=== PATIENT | male | born 1950 | race Caucasian/White ===

== ENCOUNTER → 2022-10-09 09:59 | Outpatient (BNVA) | payer OTHER, SELFPAY | PROVIDERS: PCP Physician Assistant; Visit Provider Nurse Practitioner Family ==

== ENCOUNTER 2022-12-04 10:07 | Outpatient (REF) | payer OTHER, SELFPAY ==
--- NOTE | 2022-12-04 10:11 | EMG_ITS ---
Please see scanned EMG / Nerve Conduction Report. MTDD
== END 2022-12-04 10:08 | disposition home or self-care (01) ==
LOC: HO.NEURO 10:07
PROVIDERS: PCP Physician Assistant; Visit Provider Nurse Practitioner Family
DX: R20.2 Paresthesia of skin (principal); M54.50 Low back pain, unspecified; E11.9 Type 2 diabetes mellitus without complications
CPT/HCPCS: 95885; 95911

== ENCOUNTER 2023-01-16 10:11 | Outpatient (AMB) | payer OTHER, SELFPAY ==
--- NOTE | 2023-01-16 10:16 | A.OFFVIS_ITS ---
Intake Vital Signs 01/16/23 10:17 Height 5 ft 11 in Weight 217 lb 8 oz BMI 30.3 BP 112/70 Blood Pressure Location Rt brachial Position Sitting Pulse 50 Pulse Source Pulse Oximeter Pulse Oximetry (%) 98 Oxygen Delivery Method Room Air Intake Visit Reasons: 3m follow up LEG PARESTHESIAS - Confirmed Intake Note: Patient presents for 3 month follow up. Patient states if I'm sitting and try getting up it's hard and i have a swollen feeling. when I get up I need to be careful because my leg doesn't want to go where I want to go. Allergies No Known Allergies Allergy (Verified 10/09/22 10:11) HPI HPI Comments History of Present Illness Details 72-yr-old male presents for f/u visit. Pt denies any significant interval medical changes. BLE EMG/NCS revealed- BLE mild axonal, sensory-motor peripheral neuropathy. Left L4-S1 innervated muscles c/w mild chronic neuropathic changes of neuropathy. Upon review- pt was asked to undergo neuropathy lab work-up- resulst of which are pending. He has weaned himself off the Baclofen. He wonders if he can decrease Gabapentin- maybe making him more drowsy. He is having less overall spasms. He is still having the body spasms- now seems to come on all at once, more left sided, and still a/w penis stiffness and soreness. This occurs during the day and night. During the day- getting up and moving helps. His left leg can still feel swollen. The left leg spasms are having much less often- now 2 x's per week versus every day. Was triggered by the toenail growing in (he had dropped something on it) or cold, now triggered more so by the cold. He has to stand slowly, takes a second to regain his bearings, d/t stiffness, low back pain. Trying to keep his head up more when walking- helps with his balance. He is going to the gym twice a week- doing treadmill and leg presses- feels this is helping. Denies drooling, hyposmia, parasomnias, tremor. [facility] Medical History (Updated 12/17/22 @ 15:54 by LAITH Frank) Cervicalgia HTN (hypertension) Hypothyroidism Surgical History H/O: vasectomy History of back surgery History of colonoscopy Hx of tonsillectomy Social History Alcohol intake: current Patient Tobacco Use Status: Never used Tobacco Review of Systems Const All systems reviewed & are unremarkable except as noted in HPI and below Physical Exam Vital Signs: Last Vital Signs Pulse 50 01/16/23 10:17 BP 112/70 01/16/23 10:17 Pulse Ox 98 01/16/23 10:17 Oxygen Delivery Method Room Air 01/16/23 10:17 BMI result Body Mass Index 30.3 Const General: cooperative and no acute distress Orientation/consciousness: patient oriented x3 HEENT Head: Yes normocephalic Resp Effort & Inspection: normal respiratory effort and able to speak in complete sentences Neuro Other: Slow to stand, short steps, steady gait. General: patient oriented x3 and CN's II-XI intact bilaterally Cognition (Neuro): normal cognition Motor exam (neuro): 5/5 motor strength present throughout Psych Appearance: grossly normal Mental Status: mental status grossly normal Speech and movement: Normal speech and movement present Affect: normal affect Attitude: cooperative Thought process: Normal thought process present Thought content: Normal thought content present Insight: Good insight present (Psych) Judgement: Good judgement present (Psych) Assessment & Plan Assessment & Plan (1) Low back pain: Code(s): M54.50 - Low back pain, unspecified (2) Muscle spasm: Code(s): M62.838 - Other muscle spasm (3) Bilateral leg paresthesia: Code(s): R20.2 - Paresthesia of skin (4) Peripheral sensory-motor axonal polyneuropathy: Code(s): G60.8 - Other hereditary and idiopathic neuropathies Plan Reviewed BLE EMG/NCS- BLE mild axonal, sensory-motor peripheral neuropathy. Left L4-S1 innervated muscles c/w mild chronic neuropathic changes of neuropathy. Will request lab results. Continue exercises. May hold Baclofen 10 mg qam and 20mg qhs. May slowly decrease Gabapentin. Monitor nocturnal muscle spasms. May use aquaphor to BLE. Future considerations- L-spine MRI ? f/u in 3 months or sooner prn. Coding Level of Care Code Est Pt Level 4 (67116) Diagnoses Low back pain M54.50 Muscle spasm M62.838 Bilateral leg paresthesia R20.2 Peripheral sensory-motor axonal polyneuropathy G60.8
[2023-01-16 10:17] VITALS: BP 112/70; PULSE 50; O2SAT 98; BMI 30.3
== END 2023-01-16 11:10 | disposition home or self-care (01) ==
PROVIDERS: Visit Provider Nurse Practitioner Family
DX: M54.50 Low back pain, unspecified (principal); M62.838 Other muscle spasm; R20.2 Paresthesia of skin; G60.8 Other hereditary and idiopathic neuropathies
CPT/HCPCS: 99214

== ENCOUNTER → 2023-01-16 10:11 | Outpatient (BNVA) | payer OTHER, SELFPAY | PROVIDERS: Visit Provider Nurse Practitioner Family ==

== ENCOUNTER 2023-05-28 07:44 | Outpatient (AMB) | payer OTHER, SELFPAY ==
--- NOTE | 2023-05-28 08:01 | A.OFFVIS_ITS ---
Intake Vital Signs 05/28/23 08:02 Height 5 ft 11 in Weight 217 lb BMI 30.3 BP 114/64 Blood Pressure Location Rt brachial Position Sitting Pulse 54 Pulse Source Pulse Oximeter Pulse Oximetry (%) 98 Oxygen Delivery Method Room Air Intake Visit Reasons: 4m f/u LEG PARESTHESIAS - LVM Intake Note: Patient presents for 4 month follow up. I was doing good with he warm temps, with this cold weather I'm getting leg spasms Allergies No Known Allergies Allergy (Verified 05/28/23 08:05) Medication List - Last Reconciled 05/28/23 by LAITH Frank atorvastatin 10 mg PO DAILY baclofen 10 mg PO TID cholecalciferol (vitamin D3) 50 mcg PO DAILY docusate sodium 100 mg PO DAILY dulaglutide 1.5 mg subcut QWEEK gabapentin 300mg qam and 900mg qhs orally .; 30 days [hyaluronic acid 200 mg PO] levothyroxine 125 mcg PO DAILY lisinopril 2.5 mg PO DAILY magnesium 250 mg PO DAILY mecobalamin (vitamin B12) 1,000 mcg sublingual DAILY oxycodone 5 mg PO Q6H PRN polyethylene glycol 3350 17 grams PO BEDTIME sennosides-docusate sodium 8.6-50 mg (Senna with Docusate Sodium) 1 tab-cap PO BEDTIME trazodone 50 mg PO BEDTIME PRN HPI HPI Comments History of Present Illness Details 73-yr-old male presents for f/u visit. Pt endorses the following interval medical history changes: He did have COVID-19 in Jan 2023, which he states wiped him out . He was recently diagnosed w/ Prostate CA- has started Eligard hormonal tx and will be starting radiation soon. F/B [facility]. His blood sugars are overall better controlled He had some constipation, he is managing w/ Miralax. Was feeling better in the warmer weather, now that it is colder, is having some increased body spasms, LLE feels colder. His left leg feels stronger, but may feel like it will buckle when standing May trip over his cane at times He is not having as many episodes of the whole body locking up or back/leg spasms when standing up quickly form laying down- tries to get up slowly. He is going to the gym regularly- lower weight, higher radiation and stretching. Aquaphor is still helpful. He is using Baclofen now only prn. Has stopped Trazodone - was helping him fall asleep, but still has ncoturia, and does not to wake up early to care for his dog who is ill. Does endorse snoring and daytime sleepiness- usually takes an unschedluled daytime nap when watching TV. Has never had a sleep study. Labs: 12/30/22: 24 hr total protein: 174 H [facility] Medical History (Updated 05/28/23 @ 09:16 by LAITH Frank) Hypothyroidism HTN (hypertension) Cervicalgia Surgical History History of back surgery History of colonoscopy Hx of tonsillectomy H/O: vasectomy Social History Alcohol intake: current Patient Tobacco Use Status: Never used Tobacco Review of Systems Const All systems reviewed & are unremarkable except as noted in HPI and below Physical Exam Vital Signs: Last Vital Signs Pulse 54 05/28/23 08:02 BP 114/64 05/28/23 08:02 Pulse Ox 98 05/28/23 08:02 Oxygen Delivery Method Room Air 05/28/23 08:02 BMI result Body Mass Index 30.3 Const General: cooperative and no acute distress Orientation/consciousness: patient oriented x3 HEENT Head: Yes normocephalic Resp Effort & Inspection: normal respiratory effort and able to speak in complete sentences Neuro Other: BLE MS 5/5 Slow to stand, slight stoop, short steps, steady gait w/ cane. General: patient oriented x3 and CN's II-XI intact bilaterally Cognition (Neuro): normal cognition Motor exam (neuro): 5/5 motor strength present throughout Deep tendon reflexes (DTR's): Right patellar reflex intensity grade: 2+ and Left patellar reflex intensity grade: 2+ Psych Appearance: grossly normal Mental Status: mental status grossly normal Speech and movement: Normal speech and movement present Affect: normal affect Attitude: cooperative Thought process: Normal thought process present Thought content: Normal thought content present Insight: Good insight present (Psych) Judgement: Good judgement present (Psych) Assessment & Plan Assessment & Plan (1) Peripheral sensory-motor axonal polyneuropathy: Comment: BLE EMG/NCS- BLE mild axonal, sensory-motor peripheral neuropathy. Left L4-S1 innervated muscles c/w mild chronic neuropathic changes of neuropathy. Code(s): G60.8 - Other hereditary and idiopathic neuropathies (2) Muscle spasm: Code(s): M62.838 - Other muscle spasm (3) Low back pain: Code(s): M54.50 - Low back pain, unspecified Plan Reviewed labs- mildly elevated 24 hr total urine protein- likely r/t diabetes. Pt is f/b nephrology. Continue regular exercise and stretching- advised he may need to reduce/hold during his upcoming Rx tx. Continue Baclofen 10-20mg bid prn Continue Gabapentin. Continue OTC Magnesium Continue Miralax prn constipation Monitor nocturnal muscle spasms. May use aquaphor to BLE. Future considerations- trail alpha-lipoic acid upon completion of Rx tx, L-spine MRI ? f/u in 4 months or sooner prn. Medications: New leuprolide acetate (6 month) (Eligard) 45 mg subcut [id number] Coding Level of Care Code Est Pt Level 4 (17220) Diagnoses Peripheral sensory-motor axonal polyneuropathy G60.8 Muscle spasm M62.838 Low back pain M54.50
[2023-05-28 08:02] VITALS: BP 114/64; PULSE 54; O2SAT 98; BMI 30.3
== END 2023-05-28 08:54 | disposition home or self-care (01) ==
PROVIDERS: PCP Physician Assistant; Visit Provider Nurse Practitioner Family
DX: G60.8 Other hereditary and idiopathic neuropathies (principal); M62.838 Other muscle spasm; M54.50 Low back pain, unspecified
CPT/HCPCS: 99214

== ENCOUNTER → 2023-05-28 07:44 | Outpatient (BNVA) | payer OTHER, SELFPAY | PROVIDERS: PCP Physician Assistant; Visit Provider Nurse Practitioner Family ==

== ENCOUNTER 2023-09-24 08:19 | Outpatient (AMB) | payer OTHER, SELFPAY ==
--- NOTE | 2023-09-24 08:34 | MHC.OFFVIS ---
Vital Signs 09/24/23 08:35 Height 5 ft 11 in Weight 219 lb BMI 30.5 BP 128/72 Blood Pressure Location Rt brachial Position Sitting Intake Visit Reasons: 4 mon follow up - LVM w/add Intake Note: Patient presents for 4 month follow up. patient here for follow up. Allergies No Known Allergies Allergy (Verified 09/24/23 08:38) Medication List - Last Reconciled 09/24/23 by LAITH Frank atorvastatin 10 mg PO DAILY baclofen 10 mg PO TID cholecalciferol (vitamin D3) 50 mcg PO DAILY docusate sodium 100 mg PO DAILY dulaglutide 1.5 mg subcut QWEEK gabapentin 300mg qam and 900mg qhs orally .; 30 days [hyaluronic acid 200 mg PO] leuprolide acetate (6 month) (Eligard) 45 mg subcut [id number] levothyroxine 125 mcg PO DAILY lisinopril 2.5 mg PO DAILY magnesium 250 mg PO DAILY mecobalamin (vitamin B12) 1,000 mcg sublingual DAILY metformin 1,000 mg PO DAILY oxycodone 5 mg PO Q6H PRN polyethylene glycol 3350 17 grams PO BEDTIME sennosides-docusate sodium 8.6-50 mg (Senna with Docusate Sodium) 1 tab-cap PO BEDTIME HPI Comments Details: 73-yr-old male presents for f/u visit. Pt endorses the following interval medical history changes: Pt reports he was diagnosed w/ prostate CA. He is being f/b [facility]. He has underwent radiation tx. Has had hormone tx- which he has not tolerated well, causing hot flashes. Patient also notes that he lost his 49-year-old son to a sudden heart attack recently- this has been challenging for the entire family. He is now not sleeping as well. Has left hand tingling is stable The left leg although usually is cold, may not notice the cold sensation. The full body cramp upon standing quickly was better, but seems a bit worse since the prostate cancer treatment. The RLE is having more cramping, can make it hard to step when he wakes up at night. Has been taking Magnesium Citrate 250mg for yrs. Using icey-hot and Aquaphor as needed. Voice is hoarser. Not noticing tremor. Walking is not as good. Needing to use cane. He has held going to the gym. He has been trying to be more active, doing yard work. Using the rake to help him walk in the yard. [facility] Medical History (Updated 09/24/23 @ 09:07 by LAITH Frank) Hypothyroidism HTN (hypertension) Cervicalgia Surgical History History of back surgery History of colonoscopy Hx of tonsillectomy H/O: vasectomy Social History Alcohol intake: current Patient Tobacco Use Status: Never used Tobacco Review of Systems Const All systems reviewed & are unremarkable except as noted in HPI and below Physical Exam Vital Signs: Last Vital Signs BP 128/72 09/24/23 08:35 BMI result Body Mass Index 30.5 Const General: cooperative and no acute distress Orientation/consciousness: patient oriented x3 HEENT Head: Yes normocephalic Resp Effort & Inspection: normal respiratory effort and able to speak in complete sentences Neuro Other: Slow to stand, slight stoop, short steps, steady gait w/ cane. General: patient oriented x3 and CN's II-XI intact bilaterally Cognition (Neuro): normal cognition Psych Appearance: grossly normal Mental Status: mental status grossly normal Speech and movement: Normal speech and movement present Affect: normal affect Attitude: cooperative Thought process: Normal thought process present Thought content: Normal thought content present Insight: Good insight present (Psych) Judgement: Good judgement present (Psych) Assessment & Plan Assessment & Plan (1) Peripheral sensory-motor axonal polyneuropathy: Comment: BLE EMG/NCS- BLE mild axonal, sensory-motor peripheral neuropathy. Left L4-S1 innervated muscles c/w mild chronic neuropathic changes of neuropathy. Code(s): G60.8 - Other hereditary and idiopathic neuropathies Category: Medical Plan Continue regular physical activity and stretching. Continue Baclofen 10-20mg bid prn Continue Gabapentin. Continue OTC Magnesium 250mg- may try taking 500 mg q.h.s. to prevent muscle cramps. Continue Miralax prn constipation Monitor nocturnal muscle spasms. May use aquaphor to LUE and BLE. May use Icey-Hot prn Future considerations- trial alpha-lipoic acid,, L-spine MRI. ? f/u in 6 months or sooner prn. Coding Level of Care Code Est Pt Level 4 (24804) Diagnoses Peripheral sensory-motor axonal polyneuropathy G60.8
[2023-09-24 08:35] VITALS: BP 128/72; BMI 30.5
== END 2023-09-24 09:35 | disposition home or self-care (01) ==
PROVIDERS: PCP Physician Assistant; Visit Provider Nurse Practitioner Family
DX: G60.8 Other hereditary and idiopathic neuropathies (principal)
CPT/HCPCS: 99214

== ENCOUNTER → 2023-09-24 08:19 | Outpatient (BNVA) | payer OTHER, SELFPAY | PROVIDERS: PCP Physician Assistant; Visit Provider Nurse Practitioner Family ==

== ENCOUNTER 2024-05-27 08:18 | Outpatient (AMB) | payer OTHER, SELFPAY ==
--- NOTE | 2024-05-27 08:39 | A.OFFVIS_ITS ---
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 Pt endorses the following interval medical history changes: Pt reports he was di agnosed w/ prostate CA, now in Remission as of . Patient also notes that he lost his 49-year-old son to a sudden heart attack recently- this has been challenging for the entire family. He is sleeping okay, wakes up every two hours, watches tv, then falls asleep on the couch, he has Nocturia and is followed by urology in [place] [facility] Dr[address] Barr. The left hand tingling is stable The left leg although usually is cold, may not notice the cold sensation. Has full body cramp upon standing quickly, needs to take his time. The RLE is having more cramping, can make it hard to step when he wakes up at night. He is using Icey-hot and Aquaphor as needed. Walking is not as good as he would like, he needs to use a cane. He plans to start going to the gym next week, treadmill 10min, stationary bike 10 min, rowing machine 10 min. He does upper body weights, 3x a week, chest press, then reverse chest press. Chemo - Radiation Jun 2023, in remission since Apr 2024. Memory is poor, forgetful at baseline, gets together with friends 2-3x per month. Mood is fine, he eats a lot, however his is very anxious d/t loss of their son, she refuses grief counseling He takes Gabapentin 300mg PO AM, and 900mg PO at bedtime for the aches and pain. He needs to drink more fluids, doesn't drink enough. Will f/u with pcp for labs which were completed with Jeanine 2 weeks ago, and his magnesium was low. [facility] Medical History Hypothyroidism HTN (hypertension) Cervicalgia Surgical History History of back surgery History of colonoscopy Hx of tonsillectomy H/O: vasectomy Social History Alcohol intake: current Patient Tobacco Use Status: Never used Tobacco Review of Systems Const All systems reviewed & are unremarkable except as noted in HPI and below Physical Exam Vital Signs: Last Vital Signs Pulse 55 05/27/24 08:40 BP 130/72 05/27/24 08:40 Pulse Ox 100 05/27/24 08:40 BMI result Body Mass Index 29.0 Const General: cooperative, comfortable and no acute distress Nutritional Appearance: average body habitus Orientation/consciousness: patient oriented x3 HEENT Teeth and gingiva: other ([place] Score of 3) Eyes Pupils: Equal, round and reactive pupils present Neck Neck: Yes full ROM (Limited ROM on extension.) Resp Effort & Inspection: normal respiratory effort and able to speak in complete sentences Neuro General: patient oriented x3 and moves all extremities (slow to move) Cranial nerves: Yes CN's II-XII intact bilaterally, Yes Facial sensation intact/muscles of mastication intact, Yes Equal, round and reactive pupils present, Yes Normal accommodation reflex present, Yes Bilaterally intact EOM present, Yes Nystagmus not present, Yes Normal facial strength present, Yes Midline tongue present, Yes Ability to bilaterally rotate head present (Limited ROM to the Left) and Yes Ability to bilaterally elevate shoulders present Cognition (Neuro): normal cognition Gait exam (Neuro): Normal gait present and Other gait observations present (walks with a cane) Motor exam (neuro): 5/5 motor strength present throughout, Pronator motor function not present and Normal motor muscle tone present throughout Deep tendon reflexes (DTR's): Right triceps reflex intensity grade: 2+, Left triceps reflex intensity grade: 2+, Rt Biceps (C5, C6): 2+, Left biceps reflex intensity grade: 2+, Right brachioradialis reflex intensity grade: 2+, Left brachioradialis reflex intensity grade: 2+, Right patellar reflex intensity grade: 2+ and Left patellar reflex intensity grade: 2+ Coordination: [id number] test normal Psych Appearance: grossly normal Mental Status: mental status grossly normal Speech and movement: Normal speech and movement present Affect: normal affect Thought process: Normal thought process present Thought content: Normal thought content present Insight: Good insight present (Psych) Judgement: Good judgement present (Psych) Results Reviewed Results Reviewed: EMG - Polyneuropathy Assessment & Plan Assessment & Plan (1) Peripheral sensory-motor axonal polyneuropathy: Comment: BLE EMG/NCS- BLE mild axonal, sensory-motor peripheral neuropathy. Left L4-S1 innervated muscles c/w mild chronic neuropathic changes of neuropathy. Code(s): G60.8 - Other hereditary and idiopathic neuropathies Category: Medical Plan Polyneuropathy: Continue taking Gabapentin 300mg PO AM as needed for pain, tingling and spasms. Continue taking Gabapentin 900mg PO at bedtime for pain, tingling and spasms as needed, you may decrease dose if pain is not intense. -Monitor A1c Metformin 1000mg PO BID + Dulaglutide weekly subcutaneously, can lead to hypoglycemia. -Continue to optimize sleep, Sleep hygiene provided, drink fluids, Gatorade and Pedialyte as you are able to tolerate. -Cervicalgia, heated neck wraps, icy hot- or tiger balm as needed, turmeric will decrease inflammation related to arthritis. -Will address sleep test at next visit, PT if gym tends to be a challenge to get more active. -F/U in 6 months or sooner, as needed, call the office with any concerns. Medications: Changed From gabapentin 300mg qam and 900mg qhs orally .; 30 days 120 caps 3RF G60.8 - Other hereditary and idiopathic neuropathies To gabapentin 300mg PO in the AM and 900mg PO at bedtime. 30 days 120 caps 3RF G60.8 - Other hereditary and idiopathic neuropathies Coding Level of Care Code Est Pt Level 4 (31045) Diagnoses Peripheral sensory-motor axonal polyneuropathy G60.8 Time Spent (min) 40
[2024-05-27 08:40] VITALS: BP 130/72; PULSE 55; O2SAT 100; BMI 29.0
== END 2024-05-27 09:32 | disposition home or self-care (01) ==
PROVIDERS: PCP Physician Assistant; Visit Provider Physician Assistant Medical
DX: G60.8 Other hereditary and idiopathic neuropathies (principal)
CPT/HCPCS: 99214

== ENCOUNTER 2024-06-21 07:54 | Outpatient (REF) | payer MEDICARE, SELFPAY ==
--- OUTSIDE RECORDS SUMMARY | 2024-06-21 08:00 | XMS_ITS ---
[facility] keena [place] Address [address] [place] [address] Care Team Providers Care Vice President Of Contracts Name Role Phone Redd Smallwood Primary Care Provider Jeanette Swan Unavailable [phone] Allergies No Known Allergies REASON FOR VISIT At Risk Footcare Medications Medication SIG (Take, Route, Frequency, Duration) Notes Start Date End Date Status Magnesium Citrate Ac tive Docusate Sodium 100 MG 1 capsule as need ed Orally Once a day Active Vitamin D3 Active Flomax Active metFORMIN HCl 1000 MG 1 tablet with a me al Orally twice daily Active Hyaluronic Acid Not- Taking traZODone HCl 50 MG as directed Orally O nce a day Not-Taking Tylenol Not-Taking oxyCODONE HCl 5 MG 1 tablet as needed Orally every 6 hrs Not-Taking MiraLax Active Lisinopril 5 MG 1 tablet Orally Once a day Active Levothyroxine Sodium 125 MCG 1 tablet in the morning on an empty stomach Orally Once a day Active Gabapentin 300 MG 1 capsule Orally thr ee times daily Active Baclofen 10 MG as directed Orally Twice a day Active Atorvastatin Calcium 10 MG 1 tablet Orally Once a day Active Vitamin B 12 Active Trulicity 1.5 MG/0.5ML as directed Subcutaneous Active Social History Tobacco Use: Social History Observation Description Date Details (start date - stop date) Never Smoker NA - NA Tobacco Use/Smoking Question Answer Notes Are you a: nonsmoker Additional Findings: Tobacco Non-User Aggressive non-smoker Alcohol Screen Question Answer Notes Did you have a drink containing alcohol in the p ast year? No Points 0 Interpretation Negative Tobacco use other than smoking: Question Answer Notes Are you an other tobacco user? No Vital Signs Height 5 ft 11 in in 12/25/2023 Weight 220 lbs 12/25/2023 BMI 30.68 kg/m2 12/25/2023 Encounters Encounter Location Date Provider Diagnosis [facility] [address] [address] 12/25/2023 Jeanette Dos Santos Type 2 diabetes mellitus with polyneuropathy E11.42 and Tinea unguium B35.1 Assessments Encounter Date Diagnosis (ICD Code) Assessment Notes Treatment Notes Treatment Clinical Notes Section Notes 12/25/2023 Type 2 diabetes mellitus with polyneuropathy (ICD-10 - E11.42) 12/25/2023 Tinea unguium (ICD-10 - B35.1) Plan Of Treatment Next Appt Details Follow Up: 4 Months, Reason: Provider Name:Jeanette bill, 08/26/2024 09:00:00 AM, [address] [facility], [place], [address], Procedure Notes * Category Sub-Category Detail Notes Debride Nail 6-10 Nail debridement Nail debridem ent performed extensively to reduce/remove overall nail length and girth, subungual debris, and necrotic tissue, by manual and electrical means with use of a nail nipper and/or dremel, to more viable healthy nail plate or bed tissue 6-10. Silver nitrate used for any petechial bleeding as necessary. Patient chooses, no pharmaceutical tx (16143) Keratoma Treatment Parring or Cutting o f Benign Hyperkeratotic Lesion(s) 17147 (2-4 Lesions) - The Benign hyperkeratotic lesions, as described above were pared, and/or cut utilizing a sterile #15 blade, tissue nippers, and/or dremel Progress Notes * Merlin GIORDANO ADOB: [birth year] (73 yo M)Acc No.[id number]:12/25/2023 Progress Note Patient:?Merlin Giordano Provider:?Jeanette Dos Santos DPM :1950???Age:73 Y???Sex:Male Rene e:12/25/2023 Address:[address] [place] [address] , [place], [place] Pcp:Redd Smallwood Subjective: * Chief Complaints: * ???At Risk Footcare * HPI: ???At Risk footcare:?Pt States Last PCP Visit:?Date?11/06/2023 * ROS:?General/Constitutional:?Nausea?denies, denies.?Vomiting?denies, denies.?Hunger Thirst?denies, denies.?Loss appetite?denies, denies.?Chills?denies, denies.?Fatigue?denies, denies.?Fever?denies, denies.?Night Sweats denies, denies.?Unexplained weight loss?denies, denies.?Unexplained weight gain?denies, denies.?HEENTM:?Dentures?admits, admits.?Dizziness?denies, denies.?Glasses/contacts?admits, admits.?Retinopathy?denies, denies.?Blurred/double vision?admits, admits.?TMJ?denies, denies.?Discharge/drainage?denies, denies.?Implants?denies, denies.?Sore throat?denies, denies.?Dental implants?denies, denies.?Hard of hearing ?denies, denies.?Difficulty chewing/swallowing/speaking?denies, denies.?Nose bleeds?denies, denies.?Sore mouth?denies, denies.?Respiratory:?On Oxygen?denies, denies.?Pneumonia/pleurisy?denies, denies.?Bronchitis?denies, denies.?Emphysema?denies, denies.?Coughing?denies, denies.?Cough blood?denies, denies.?Shortness of breath?denies, denies.?Wheezing?denies, denies.?Cardiovascular:?Pacemaker?denies, denies.?MVP?denies, denies.?WPW?denies, denies.?CHF?denies, denies.?Heart attack?denies, denies.?Septal defect?denies, denies.?Rapid beat?denies, denies.?Chest pain ?denies, denies.?Atrial Fib.?denies, denies.?Murmur/Palpitations?denies, denies.?Gastrointestinal:?Hemorrhoids?denies, denies.?Stomach/Abdominal pain?denies, denies.?Dark blood stool?denies, denies.?Irritable bowel ?denies, denies.?Constipation?denies, denies.?Diarrhea?denies, denies.?Hematology:?Swelling?denies, denies.?Clots?denies, denies.?Varicose Veins?denies, denies.?Bruising?denies, denies.?Bleeding problem?denies, denies.?Genitourinary:?Blood urine?denies, denies.?Frequent/Painfu/urination/bladder control?denies, denies.?Kidney stones?denies, denies.?Infection (UTI)?denies, denies.?Nephropathy?denies, denies.?sex trans dis (STD)?denies, denies.?Prostate?denies, denies.?Musculoskeletal:?Hammertoes?denies, denies.?Bunions?denies, denies.?Back Pain?denies, denies.?Muscle Cramps/ Resting?admits, admits.?Muscle cramps / walking?denies, denies.?Generalized aches and pains?admits, admits.?Weakness?denies, denies.?Integ.:?[place]?denies, denies.?Scars?admits, admits.?Corns/calluses?denies, denies.?Ingrown nails?denies, denies.?Painful nails?denies, denies.?Open Sores?denies, denies.?Rashes?denies, denies.?Neurologic:?Difficulty sleeping?admits, admits.?Brain disorder?denies, denies.?Numbness?admits, admits.?Balance trouble?admits, admits.?Confusion?denies, denies.?Fainting/blackouts?denies, denies.?Tingling?admits, admits.?Tremors?denies, denies.? * Medical History:? * Surgical History:?neck surge ry,back,ribs 06/2021 * Hospitalization/Major Diagno stic Procedure:?Denies Past Hospitalization * Family History:?Mother: dece ased, diabetes, arthritis.?Father: , stroke, heart attack.? * Social History:?Tobacco Use:?Tobacco Use/Smoking?Are you a:?nonsmoker ?Additional Findings: Tobacco Non-User?Aggressive non-smoker ?Tobacco use other than smoking?Are you an other tobacco user??No ???Drugs/Alcohol:?Drugs?Have you used drugs other than those for medical reasons in the past 12 months??No ?Alcohol Screen?Did you have a drink containing alcohol in the past year??No ?Points?0 ?Interpretation?Negative ???Miscellaneous:?Caffeine: yes, frequency:, 1-2 cups per day. ?no Children. ?Exercise: yes, walking. ?Marital status: . ?Occupation: Retired. * Medications:?TakingFlomax me tFORMIN HCl 1000 MG Tablet 1 tablet with a meal Orally twice dailyMagnesium Citrate Docusate Sodium 100 MG Capsule 1 capsule as needed Orally Once a dayVitamin D3 Vitamin B 12 Trulicity 1.5 MG/0.5ML Solution Pen- injector as directed Subcutaneous Lisinopril 5 MG Tablet 1 tablet Orally Once a dayLevothyroxine Sodium 125 MCG Tablet 1 tablet in the morning on an empty stomach Orally Once a dayGabapentin 300 MG Capsule 1 capsule Orally three times dailyBaclofen 10 MG Tablet as directed Orally Twice a dayAtorvastatin Calcium 10 MG Tablet 1 tablet Orally Once a dayMiraLax Taking Flomax Taking metFORMIN HCl 1000 MG Tablet 1 tablet with a meal Orally twice dailyTaking Magnesium Citrate Taking Docusate Sodium 100 MG Capsule 1 capsule as needed Orally Once a dayTaking Vitamin D3 Taking Vitamin B 12 Taking Trulicity 1.5 MG/0.5ML Solution Pen-injector as directed Subcutaneous Taking Lisinopril 5 MG Tablet 1 tablet Orally Once a dayTaking Levothyroxine Sodium 125 MCG Tablet 1 tablet in the morning on an empty stomach Orally Once a dayTaking Gabapentin 300 MG Capsule 1 capsule Orally three times dailyTaking Baclofen 10 MG Tablet as directed Orally Twice a dayTaking Atorvastatin Calcium 10 MG Tablet 1 tablet Orally Once a dayTaking MiraLax Not-Taking/PRNHyaluronic Acid traZODone HCl 50 MG Tablet as directed Orally Once a dayTylenol oxyCODONE HCl 5 MG Tablet 1 tablet as needed Orally every 6 hrsMedication List reviewed and reconciled with the patientNot- Taking/PRN Hyaluronic Acid Not-Taking/PRN traZODone HCl 50 MG Tablet as directed Orally Once a dayNot-Taking/PRN Tylenol Not-Taking/PRN oxyCODONE HCl 5 MG Tablet 1 tablet as needed Orally every 6 hrsMedication List reviewed and reconciled with the patient * Allergies:?N.K.D.A.yes[Aller gies Verified] Objective: * Vitals:?Ht: 5 ft 11 in, Wt: 220, BMI:30.68, Shoe size: 12, BS: 120. * Examination: ???Ophthalmology Referral: ?DIABETES EYE EXAM?Neurological: ?SENSORY:?Neurological exam demonstrates, reduced light touch sensation, reduced sharp/dull discrimination , reduced vibration sensation, in a stocking fashion, B/L, 5.07 monofilament test performed at plantar aspects of 5 varied sites per foot shows sensation, reduced, B/L.?Nails: ?NAILS are:?Elongated, overgrown, dystrophic, lytic, greater than 3mm thick, discolored and friable with crumbly malodorous subungual debris with dull to no pain on palpation due to neuropathy 1-5 B/L.?Dermatologic: ?SKIN FINDINGS:?Skin exam reveals Keratotic lesion(s) located at, TA, T5.?Vascular: ?DP PULSES:? 2/4, B/L.?PT PULSES:? 2/4, B/L.?CAPILLARY FILL TIME:? delayed, all digits, B/L.?SKIN TEMPERTURE GRADIENT OF THE LOWER EXTERMITIES:? decreased, cool to cold, proximal to distal, B/L.?HAIR GROWTH/TEXTURE/ELASTICITY/TURGOR:? sparce hair growth decreased, B/L dystrophic (thin,shiny).?PIGMENTATION:? rubrous Forefoot B/L.?EDEMA:? /4 B/L.? Assessment: * Assessment: 1.?Type 2 diabetes mellitus with polyneuropathy - E11.42 (Primary)?2.?Tinea unguium - B35.1? Plan: * Treatment: * Procedures:?Debride Nail 6-10:?Nail debridement?Nail debridement performed extensively to reduce/remove overall nail length and girth, subungual debris, and necrotic tissue, by manual and electrical means with use of a nail nipper and/or dremel, to more viable healthy nail plate or bed tissue 6-10. Silver nitrate used for any petechial bleeding as necessary. Patient chooses, no pharmaceutical tx (76200).?Keratoma Treatment:?Parring or Cutting of Benign Hyperkeratotic Lesion(s)?89049 (2-4 Lesions) - The Benign hyperkeratotic lesions, as described above were pared, and/or cut utilizing a sterile #15 blade, tissue nippers, and/or dremel.? * Procedure Codes:?06442 DEBRI DE NAIL, 6 OR MORE, Modifiers: XS 62099 TRIM SKIN LESIONS, 2 TO 4, Modifiers: XS * Follow Up:?4 Months * Images: * Sign off status: Completed true * Provider:Serina Dos Santos, DPM Date:?05/2023 Generated for Printi ng/Fanateg/eTransmitting on:?06/21/2024 08:00 AM EST History and Physical Notes * HPI (History of Present Illness) Category Sub-Category Detail Notes Category Not es At Risk footcare Pt States Last PCP Visit: Date: Examination Category Sub-Category Detail Notes Category Not es Neurological SENSORY: Neurological exa m demonstrates, reduced light touch sensation, reduced sharp/dull discrimination , reduced vibration sensation, in a stocking fashion, B/L, 5.07 monofilament test performed at plantar aspects of 5 varied sites per foot shows sensation, reduced, B/L Dermatologic SKIN FINDINGS: Skin exam reveal s Keratotic lesion(s) located at, TA, T5 Ophthalmology Referral DIABETES EYE EXAM Diabeti c Retinopathy Screening:: Yes Vascular DP PULSES (B): 2/4, B/L PT PULSES (B): 2/4, B/L CAPILLARY FILL TIME: delayed, all digits , B/L TEMPERTURE GRADIENT (C): decreased, cool to cold, proximal to distal, B/L TROPHIC CONDITION-TEXTURE/ELASTICITY/TURGOR/HAIR GROWTH (B): sparce hair growth decreased, B/L dystro phic (thin,shiny) EDEMA (C): 1/4 B/L PIGMENTATION: rubrous Forefoot B/L Nails NAILS are: Elongated, overg rown, dystrophic, lytic, greater than 3mm thick, discolored and friable with crumbly malodorous subungual debris with dull to no pain on palpation due to neuropathy 1-5 B/L
--- OUTSIDE RECORDS SUMMARY | 2024-06-21 08:01 | XMS_ITS | Clinical Summary ---
Author Organization [facility] Address [address] [place] [address] Phone Care Team Providers Care Stump Blower Name Role Phone Katy Fallon Primary Care Provider + Allergies No known active allergies Medications Medication Sig Dispensed Refills Start Date End Date Status levothyroxine (SYNTHROID, LEVOTHROID) 125 mcg tablet TAKE 1 TABLET BY MOUTH DAILY 6 DAYS PER WEEK. SKIP ON SEVENTH DAY. 01/29/2024 Active metFORMIN (GLUCOPHAGE) 1,000 mg tablet Take 1 Tablet by mouth 2 times daily (with meals). 11/03/2023 Active cholecalciferol (VITAMIN D-3) 50 mcg (2,000 unit) capsule Take 1 Capsule by mouth every morning. Active magnesium 250 mg tablet Take 1 mcg by mouth daily. Active FREESTYLE LANCETS MISC Use bid and prn Dx:E11.22 08/31/2018 Active cyanocobalamin (VITAMIN B-12) 1,000 mcg tablet Take 1 Tablet by mouth daily. 02/26/2018 Active blood-glucose meter kit Dx: E11.22 08/31/2018 Active baclofen (LIORESAL) 10 mg tablet Take 1 tablet (10 mg total) by mouth 3 (three) times a day. 270 tablet 1 04/28/2024 Active gabapentin (NEURONTIN) 300 mg capsule Take 1 capsule (300 mg total) by mouth 4 (four) times a day. 120 capsule 3 05/10/2024 Active Trulicity 1.5 mg/0.5 mL pen injector injection Inject 0.5 mL (1.5 mg total) under the skin 1 (one) time per week. 04/21/2024 Active atorvastatin (LIPITOR) 10 mg tablet TAKE 1 TABLET BY MOUTH EVERY DAY IN THE EVENING 90 tablet 3 06/09/2024 Active lisinopriL (PRINIVIL,ZESTR IL) 5 mg tablet Take 1 tablet (5 mg total) by mouth 1 (one) time each day. 90 tablet 1 06/09/2024 Active lisinopriL (PRINIVIL,ZESTR IL) 5 mg tablet TAKE 1 TABLET BY MOUTH EVERY DAY 12/01/2023 5 Discontinued(Reor mikael) atorvastatin (LIPITOR) 10 mg tablet Take 1 Tablet by mouth every evening. 04/07/2023 5 Discontinued senna-docusate (PERICOLACE) 8.6-50 mg per tablet Take 1 Tablet by mouth at bedtime. 5 Discontinued(Ther apy completed) dulaglutide (Trulicity) 0.75 mg/0.5 mL pen injector injection Inject 0.5 mL (0.75 mg total) under the skin 1 (one) time per week. 0.5 mL 3 05/11/2024 5 Discontinued(Ther apy completed) traZODone (DESYREL) 50 mg tablet Take 1 tablet (50 mg total) by mouth at bedtime as needed for sleep. 5 Discontinued(Ther apy completed) Active Problems Problem Noted Date Diagnosed Date Nocturia 04/14/2024 Nocturnal leg cramps 04/14/2024 Prostate cancer 02/04/2023 BPH (benign prostatic hyperplasia) 02/25/2019 Hypomagnesemia 05/07/2018 Left shoulder pain 05/06/2018 Decreased hearing, bilateral 02/26/2018 Vitamin D deficiency 02/26/2018 Obesity 01/15/2018 Anxiety 08/29/2017 Diabetic neuropathy 05/17/2017 CKD (chronic kidney disease) stage 3, GFR 30-59 ml/min 05/17/2017 DM (diabetes mellitus), type 2 with renal compli cations 05/17/2017 Hyperlipidemia 05/17/2017 Hypertension 05/17/2017 Hypothyroidism 05/17/2017 AAA (abdominal aortic aneurysm) 05/17/2017 Tubular adenoma of colon 05/17/2017 Onychomycosis 05/05/2017 Sciatica 11/17/2012 Encounters Date Type Department Care Team Description 05/28/2024 2:30 PM EST Office Visit Internal Medicine - [address] [place] [address] Katy Fallon PA Routine physical examination (Primary Dx); Type 2 diabetes mellitus with stage 3a chronic kidney disease, without long-term current use of insulin (CMS/[facility]); Primary hypertension; Pure hypercholesterolemia; Hypothyroidism, unspecified type from Last 3 Months Immunizations Name Administration Dates Next Due H1N1 Inj Preservative Free 06/08/2009 Influenza trivalent, 0.5mL ( Fluad) 65yo and older 03/12/2024,02/05/2022,02/19/2021,01/25,03/08/2019,01/24/2018 Influenza, Unspecified 02/19/2021 Pfizer SARS-CoV-2 COVID-19, mRNA, LNP-S, preservative free 08/23/2021 Pneumococcal conjugate 13 va lent (Prevnar 13, PCV13) 2mo and older 08/06/2019 Pneumococcal polysaccharide 23 valent (Pneumovax 23) 2yo and older 03/08/2022,07/18/2005 Tdap Tetanus diptheria acell ular pertussis (Boostrix; Adacel) 7yo and older 07/04/2021,01/22/2007 Zoster Live 08/24/2019 Zoster recombinant (Shingrix ) 19yo and older 07/04/2019,12/22/2018 Surgical History Surgery Date Site/Laterality Comments VASECTOMY PROCEDURE: [place] VASECTOMY UNI/BI SPX W/POSTOP SEMEN EXAMS TONSILLECTOMY PROCEDURE: HISTORICAL TONSILLECTOMY COLONOSCOPY 03/21/2016 PROCEDURE: HISTORICAL COLONOSCOPY; COMMENT: polyp = tubular adenoma - repeat 3 years - Dr. Farah Medical History Medical History Date Comments Onychomycosis 05/05/2017 DX:Onychomycosis Diabetic neuropathy ([facility]) 05/17/2017 DX :Diabetic neuropathy (HCC) CKD (chronic kidney disease) stage 3, GFR 30-59 ml/min (CMS/HCC) 05/17/2017 DX:CKD (chronic kidney dise ase) stage 3, GFR 30-59 ml/min ([facility]) DM (diabetes mellitus), type 2 with renal complications (CMS/HCC) 05/17/2017 DX:DM (diabetes mellitus ), type 2 with renal complications ([facility]) Hypertension 05/17/2017 DX:Hypertension Hyperlipidemia 05/17/2017 DX:Hyperlipidemi a AAA (abdominal aortic aneury sm) ([facility]/HCC) 05/17/2017 DX:AAA (abdominal aortic ane urysm) ([facility]) Hypothyroidism 05/17/2017 DX:Hypothyroidis m Obesity 01/15/2018 DX:Obesity Sciatica 11/17/2012 DX:Sciatica Decreased hearing, bilateral 02/26/2018 DX: Decreased hearing, bilateral Anxiety 08/29/2017 DX:Anxiety Nocturnal leg cramps DX:Nocturna l leg cramps Nocturia DX:Nocturia Tubular adenoma of colon 05/17/2017 DX:Tubu lar adenoma of colon Prostate cancer ([facility]) 02/04/2023 DX:Pro state cancer ([facility]) Family History Medical History Relation Name Comments Heart attack Son 1 Parkinson's Disease Son 2 Relation Name Status Comments Son 1 (Age 49) Son 2 Alive Social History Tobacco Use Types Packs/Day Years Used Date Smoking Tobacco: Never Smokeless Tobacco: Never Tobacco Cessation:Counseling Given: Not Answered Alcohol Use Standard Drinks/Week Comments Yes 0 (1 standard drink = 0.6 oz pur e alcohol) Housing Instability Answer Date Recorde d Are you worried that in the next 2 months you may not have stable housing? No 05/21/2024 Food Access & Nutrition Answer Date Rec orded Do you have access to a vari ety of food including fruits and vegetables? Yes 05/21/2024 Access to Healthcare Answer Date Record ed Within the last 3 months, justin deutsch many times did you visit the emergency department for your medical care? 0 05/21/2024 Health Literacy Answer Date Recorded How often do you need to hav e someone help you when you read instructions, pamphlets, or other written material from your doctor or pharmacy? Never 05/21/2024 Caregiver: How often do you need to have someone help you when you read instructions, pamphlets, or other written material from your doctor or pharmacy? Not on file 05/21/2024 Financial Risk Answer Date Recorded How hard is it for you to pa y for the very basics like food, housing, medical care, and air conditioning / heating? Not very hard 05/21/2024 Transportation Answer Date Recorded Has the lack of transportati on kept you from meetings, work, or from getting things needed for daily living? No Has the lack of transportati on kept you from medical appointments or from getting medications? No 05/21/2024 Social Isolation Answer Date Recorded How often do you feel lonely or isolated from th ose around you? Never 05/21/2024 Food Risk Answer Date Recorded Within the past 12 months we worried whether our food would run out before we got money to buy more. Never true 05/21/2024 Within the past 12 months th e food we bought just didn't last and we didn't have money to get more. Never true 05/21/2024 Dependent Care Answer Date Recorded Do you need help finding or paying for care for your loved ones. For example, child protective investigator or elderly care for an older adult? No 05/21/2024 Education Answer Date Recorded Do you think completing more education or training, like finishing a GED, going to college, or learning a trade, would be helpful for you? No 05/21/2024 Employment and Income Answer Date Recor ded During the last four weeks, have you been actively looking for work? No 05/21/2024 Living Situation Answer Date Recorded What is your living situation? 1 07/22/2023 Sex and Gender Information Value Date Recorded Sex Assigned at Not on file Gender Identity Not on file Sexual Orientation Not on file Job Start Date Occupation Industry Not on file Not on file Not on file Obstetrics History Last Filed Vital Signs Vital Sign Reading Time Taken Comments Blood Pressure 124/60 05/28/2024 2:31 PM EST Pulse 67 05/28/2024 2:31 PM EST Temperature 36.2 ??C (97.1 ??F) 05/28/2024 2:31 PM ES T Respiratory Rate - - Oxygen Saturation 95% 05/28/2024 2:31 PM EST Inhaled Oxygen Concentration - - Weight 102 kg (224 lb) 05/28/2024 2:31 PM EST Height 180.3 cm (5' 11 ) 10/22/2023 9:54 AM EDT Body Mass Index 31.24 10/22/2023 9:54 AM EDT Plan of Treatment Upcoming Encounters Date Type Department Care Team (Late st Contact Info) Description 12/02/2024 9:30 AM EDT Office Visit Internal Medicine - [place] [address] [place] [phone] Katy Fallon PA [address] [place] [address] 01/18/2025 10:45 AM EDT [facility] [address] [place] [phone] Ed Buckner MD [address] [place] [phone] Health Maintenance Due Date Last Done Comments Diabetes: Annual Retina Eye Exam 1960 Falls Risk Assessment 05/04/2022 Hepatitis C Screening 05/04/2022 Medicare Annual Wellness Visit 05/04/2022 RSV Immunization Patients 60+ Years Old (1 - 1-dose 75+ series) 2023 Diabetes: Blood Sugar Control Test (HGBA1C) 11/11/2024 05/13/2024, 10/17/2023, 10/17/2023, Additional history exists Diabetes: Annual Foot Exam 12/24/2024 12/25/2023 Diabetes: Annual Urine Albumin-Creatinine Ratio (uACR) 05/13/2025 05/13/2024, 01/22/2023 Diabetes: Annual GFR (Glomerular Filtration Rate) 05/13/2025 05/13/2024, 10/17/2023, 10/17/2023, Additional history exists Hypertension/CHF/CAD Annual BMP Blood Test 05/13/2025 05/13/2024, 10/17/2023, 10/17/2023, Additional history exists Depression Screening 05/21/2025 05/21/2024 Social Influencers of Health Screening 05/21/2025 05/21/2024 Colorectal Cancer Screening: Colonoscopy 06/13/2025 06/13/2020 Cholesterol Screening (Lipid Panel) 05/13/2029 05/13/2024, 10/17/2023, 10/17/2023, Additional history exists DTaP,Tdap,and Td Vaccines (3 - Td or Tdap) 07/04/2031 07/04/2021, 01/22/2007 Zoster Vaccines Completed 08/24/2019, 01/2020, 12/22/2018 Pneumococcal Vaccine: 65+ Years Completed 03/08/2022, 08/06/2019, 07/18/2005 COVID-19 Vaccine Completed 03/12/2024, , 02/05/2022, Additional history exists Influenza Vaccine Completed 03/12/2024, , 02/05/2022, Additional history exists HIB Vaccines Aged Out No longer eligi ble based on patient's age to complete this topic HPV Vaccines Aged Out No longer eligi ble based on patient's age to complete this topic Hepatitis A Vaccines Aged Out No long er eligible based on patient's age to complete this topic Hepatitis B Vaccines Aged Out No long er eligible based on patient's age to complete this topic IPV Vaccines Aged Out No longer eligi ble based on patient's age to complete this topic MMR Vaccines Aged Out No longer eligi ble based on patient's age to complete this topic Meningococcal ACWY Vaccine Aged Out N o longer eligible based on patient's age to complete this topic RSV Immunization Patients Under 20 months Aged Out No longer eligible based on patient's age to complete this topic Varicella Vaccines Aged Out No longer eligible based on patient's age to complete this topic Procedures Procedure Name Priority Date/Time Associated Diagnosis Comments MICROALBUMIN CREATININE URINE RATIO Routine 05/13/2024 10:43 AM EST Type 2 diabetes mellitus with ESRD (end-stage renal disease) ([facility]) Pure hypercholesterolem ia Chronic kidney disease, stage III (moderate) (CMS/HCC) Essential hypertension, malignant CBC WITH AUTO DIFFERENTIAL Routine 05/13/2024 10:35 AM EST Type 2 diabetes mellitus with ESRD (end-stage renal disease) (CMS/HCC) Pure hypercholesterolem ia Chronic kidney disease, stage III (moderate) (CMS/HCC) Essential hypertension, malignant VITAMIN D 25 HYDROXY Routine 05/13/2024 10:35 AM EST Type 2 diabetes mellitus with ESRD (end-stage renal disease) (CMS/HCC) Pure hypercholesterolem ia Chronic kidney disease, stage III (moderate) (CMS/HCC) Essential hypertension, malignant THYROID STIMULATING HORMONE Routine 05/13/2024 10:35 AM EST Type 2 diabetes mellitus with ESRD (end-stage renal disease) (CMS/HCC) Pure hypercholesterolem ia Chronic kidney disease, stage III (moderate) (CMS/HCC) Essential hypertension, malignant HEMOGLOBIN A1C Routine 05/13/2024 10:35 AM EST Type 2 diabetes mellitus with ESRD (end-stage renal disease) (CMS/HCC) Pure hypercholesterolem ia Chronic kidney disease, stage III (moderate) (CMS/HCC) Essential hypertension, malignant LIPID PANEL WITH REFLEX TO DIRECT LDL Routine 05/13/2024 10:35 AM EST Type 2 diabetes mellitus with ESRD (end-stage renal disease) (CMS/HCC) Pure hypercholesterolem ia Chronic kidney disease, stage III (moderate) (CMS/HCC) Essential hypertension, malignant COMPREHENSIVE METABOLIC PANEL Routine 05/13/2024 10:35 AM EST Type 2 diabetes mellitus with ESRD (end-stage renal disease) (CMS/HCC) Pure hypercholesterolem ia Chronic kidney disease, stage III (moderate) (CMS/HCC) Essential hypertension, malignant CBC AND DIFFERENTIAL Routine 05/13/2024 10:35 AM EST Type 2 diabetes mellitus with ESRD (end-stage renal disease) (CMS/HCC) Pure hypercholesterolem ia Chronic kidney disease, stage III (moderate) (CMS/HCC) Essential hypertension, malignant MAGNESIUM Routine 05/13/2024 10:35 AM EST Type 2 diabetes mellitus with ESRD (end-stage renal disease) (CMS/HCC) Pure hypercholesterolem ia Chronic kidney disease, stage III (moderate) (CMS/HCC) Essential hypertension, malignant DIABETES FOOT EXAM Routine 12/25/2023 COLONOSCOPY Routine 06/13/2020 from Last 3 Months or Most Recently Relevant to Health Maintenance Results * Microalbumin creatinine urine ratio (05/13/2024 10:43 AM EST) Creatinine, Urine 160.0 mg/dL LAB CHEMISTRY METHOD 05/13/2024 3:58 PM [facility] Microalb, Ur 14.0 0.0 - 29.0 mg/L LAB CHEMISTRY METHOD 05/13/2024 3:58 PM [facility] Microalb/Creat Ratio 9 <30 mg/g creat LAB CHEMISTRY METHOD 05/13/2024 3:58 PM [facility] Urine Urine specimen obtained by clean catch procedure / Unknown Non-blood Collection / Unknown 05/13/2024 10:43 AM EST 05/13/2024 10:43 AM EST Katy APARICIO LAB URINE ORDERA PARKER [facility] [address] [place] [address], * Lipid panel with reflex to direct LDL (05/13/2024 10:35 AM EST) Cholesterol 139 0 - 200 mg/dL LAB CHEMISTRY METHOD 05/13/2024 3:33 PM [facility] Triglycerides 90 0 - 150 mg/dL LAB CHEMISTRY METHOD 05/13/2024 3:33 PM [facility] HDL 61 >=40 mg/dL LAB CHEMISTRY METHOD 05/13/2024 3:33 PM [facility] LDL Calculated 60 0 - 100 mg/dL LAB CHEMISTRY METHOD 05/13/2024 3:33 PM [facility] VLDL Cholesterol Pablo 18 mg/dL LAB CHEMISTRY METHOD 05/13/2024 3:33 PM [facility] Non HDL Chol. (LDL+VLDL) 78 <145 mg/dL LAB CHEMISTRY METHOD 05/13/2024 3:33 PM [facility] Chol/HDL Ratio 2.3 0.0 - 4.4 LAB CHEMISTRY METHOD 05/13/2024 3:33 PM [facility] Blood Venous blood specimen / Unknown Venipuncture / Unknown 05/13/2024 10:35 AM EST 05/13/2024 10:40 AM EST Katy APARICIO LAB BLOOD ORDERA BLES [facility] [address] [place] [address], * (ABNORMAL) CBC auto differential (05/13/2024 10:35 AM EST) WBC 5.6 4.8 - 10.8 K/mcL LAB HEMETOLOGY METHOD 05/13/2024 12:19 PM [facility] RBC 4.20(L) 4.50 - 5.50 M/mcL LAB HEMETOLOGY METHOD 05/13/2024 12:19 PM [facility] Hemoglobin 13.0(L) 13.5 - 17.5 g/dL LAB HEMETOLOGY METHOD 05/13/2024 12:19 PM [facility] Hematocrit 40.4(L) 42.0 - 54.0 % LAB HEMETOLOGY METHOD 05/13/2024 12:19 PM [facility] MCV 95.5 79.0 - 98.0 FL LAB HEMETOLOGY METHOD 05/13/2024 12:19 PM [facility] MCH 30.7 27.0 - 32.0 pcg LAB HEMETOLOGY METHOD 05/13/2024 12:19 PM [facility] MCHC 32.2 32.0 - 37.0 g/dL LAB HEMETOLOGY METHOD 05/13/2024 12:19 PM [facility] RDW 12.7 11.0 - 15.0 % LAB HEMETOLOGY METHOD 05/13/2024 12:19 PM [facility] Platelets 185 130 - 400 K/mcL LAB HEMETOLOGY METHOD 05/13/2024 12:19 PM [facility] MPV 10.2 7.0 - 11.0 FL LAB HEMETOLOGY METHOD 05/13/2024 12:19 PM [facility] NRBC 0.0 <1.0 % LAB HEMETOLOGY METHOD 05/13/2024 12:19 PM [facility] NRBC Absolute 0.00 <0.10 K/mcL LAB HEMETOLOGY METHOD 05/13/2024 12:19 PM [facility] Neutrophils Relative 68.9 % LAB HEMETOLOGY METHOD 05/13/2024 12:19 PM [facility] Lymphocytes Relative 22.0 % LAB HEMETOLOGY METHOD 05/13/2024 12:19 PM [facility] Monocytes Relative 5.8 % LAB HEMETOLOGY METHOD 05/13/2024 12:19 PM [facility] Eosinophils Relative 2.2 % LAB HEMETOLOGY METHOD 05/13/2024 12:19 PM [facility] Basophils Relative 0.7 % LAB HEMETOLOGY METHOD 05/13/2024 12:19 PM [facility] Immature Granulocytes Relative 0.4 % LAB HEMETOLOGY METHOD 05/13/2024 12:19 PM [facility] Neutrophils Absolute 3.83 1.50 - 7.00 K/mcL LAB HEMETOLOGY METHOD 05/13/2024 12:19 PM [facility] Lymphocytes Absolute 1.22 1.00 - 5.00 K/mcL LAB HEMETOLOGY METHOD 05/13/2024 12:19 PM [facility] Monocytes Absolute 0.32 0.20 - 1.00 K/mcL LAB HEMETOLOGY METHOD 05/13/2024 12:19 PM [facility] Eosinophils Absolute 0.12 0.00 - 0.50 K/mcL LAB HEMETOLOGY METHOD 05/13/2024 12:19 PM EST [facility] Basophils Absolute 0.04 0.00 - 0.20 K/mcL LAB HEMETOLOGY METHOD 05/13/2024 12:19 PM EST [facility] Immature Granulocytes Absolute 0.02 0.00 - 0.03 K/mcL LAB HEMETOLOGY METHOD 05/13/2024 12:19 PM EST [facility] Blood Venous blood specimen / Unknown Venipuncture / Unknown 05/13/2024 10:35 AM EST 05/13/2024 10:40 AM EST Katy APARICIO LAB BLOOD ORDERA BLES Performing Organization Address [facility]/ZIP Co de Phone Number [facility] [address] [place] [address], * Vitamin D 25 hydroxy (05/13/2024 10:35 AM EST) Vit D, 25-Hydroxy 42.1 30.0 - 80.0 ng/mL LAB CHEMISTRY METHOD 05/13/2024 3:39 PM EST [facility] Blood Venous blood specimen / Unknown Venipuncture / Unknown 05/13/2024 10:35 AM EST 05/13/2024 10:40 AM EST Katy APARICIO LAB BLOOD ORDERA BLES Performing Organization Address City/[facility]/ZIP Co de Phone Number [facility] [address] [place] [address], * Thyroid stimulating hormone (05/13/2024 10:35 AM EST) TSH 1.18 0.40 - 4.00 mcIU/mL LAB CHEMISTRY METHOD 05/13/2024 3:39 PM EST [facility] Blood Venous blood specimen / Unknown Venipuncture / Unknown 05/13/2024 10:35 AM EST 05/13/2024 10:40 AM EST Katy APARICIO LAB BLOOD ORDERA BLES [facility] [address] [place] [address], [place] [phone] * (ABNORMAL) Magnesium (05/13/2024 10:35 AM EST) Magnesium 1.8(L) 1.9 - 2.6 mg/dL LAB CHEMISTRY METHOD 05/13/2024 3:31 PM EST [facility] Blood Venous blood specimen / Unknown Venipuncture / Unknown 05/13/2024 10:35 AM EST 05/13/2024 10:40 AM EST Katy APARICIO LAB BLOOD ORDERA BLES Performing Organization Address [facility]/ZIP Co de Phone Number [facility] [address] [place] [address], [place] [phone] * (ABNORMAL) Hemoglobin A1c (05/13/2024 10:35 AM EST) Hemoglobin A1C 6.9(H) <6.5 % LAB CHEMISTRY METHOD 05/13/2024 8:55 PM EST [facility] Mean Bld Glu Estim. 151 mg/dL LAB CHEMISTRY METHOD 05/13/2024 8:55 PM EST [facility] Blood Venous blood specimen / Unknown Venipuncture / Unknown 05/13/2024 10:35 AM EST 05/13/2024 10:40 AM EST Katy APARICIO LAB BLOOD ORDERA BLES Performing Organization Address City/[facility]/ZIP Co de Phone Number [facility] [address] [place] [address], [place] [phone] * (ABNORMAL) Comprehensive metabolic panel (05/13/2024 10:35 AM EST) Sodium 142 133 - 145 mmol/L LAB CHEMISTRY METHOD 05/13/2024 3:33 PM [facility] Potassium 4.3 3.5 - 5.5 mmol/L LAB CHEMISTRY METHOD 05/13/2024 3:33 PM [facility] Chloride 108 96 - 110 mmol/L LAB CHEMISTRY METHOD 05/13/2024 3:33 PM [facility] CO2 28 21 - 32 mmol/L LAB CHEMISTRY METHOD 05/13/2024 3:33 PM [facility] Anion Gap 6 3 - 11 LAB CHEMISTRY METHOD 05/13/2024 3:33 PM [facility] Glucose 154(H) 70 - 100 mg/dL LAB CHEMISTRY METHOD 05/13/2024 3:33 PM [facility] BUN 22 5 - 25 mg/dL LAB CHEMISTRY METHOD 05/13/2024 3:33 PM [facility] Creatinine 1.46(H) 0.70 - 1.30 mg/dL LAB CHEMISTRY METHOD 05/13/2024 3:33 PM [facility] eGFR 50(L) >=60 mL/min/1. 73m2 LAB CHEMISTRY METHOD 05/13/2024 3:33 PM [facility] Comment:Calculation based on the??Chronic Kidney Disease Epidemiology Collaboration (CKD-EPI) equation refit??without adjustment for race. BUN/Creatinine Ratio 15.1 LAB CHEMISTRY METHOD 05/13/2024 3:33 PM [facility] Calcium 9.5 8.5 - 10.5 mg/dL LAB CHEMISTRY METHOD 05/13/2024 3:33 PM [facility] AST (SGOT) 21 10 - 42 unit/L LAB CHEMISTRY METHOD 05/13/2024 3:33 PM [facility] ALT (SGPT) 20 10 - 60 unit/L LAB CHEMISTRY METHOD 05/13/2024 3:33 PM EST [facility] Alkaline Phosphatase 78 42 - 121 unit/L LAB CHEMISTRY METHOD 05/13/2024 3:33 PM [facility] Total Protein 6.9 6.0 - 8.0 g/dL LAB CHEMISTRY METHOD 05/13/2024 3:33 PM EST [facility] Albumin 4.0 3.2 - 5.0 g/dL LAB CHEMISTRY METHOD 05/13/2024 3:33 PM [facility] Total Bilirubin 0.6 0.0 - 1.4 mg/dL LAB CHEMISTRY METHOD 05/13/2024 3:33 PM [facility] Blood Venous blood specimen / Unknown Venipuncture / Unknown 05/13/2024 10:35 AM EST 05/13/2024 10:40 AM EST Katy APARICIO LAB BLOOD ORDERA BLES [facility] [address] [place] [address], * Diabetes Foot Exam (12/25/2023) [facility] Diabetes: Annual Foot Exam abstracted Historical Provider MD KRIS Kruse * Colonoscopy (06/13/2020) [facility] Colonoscopy no interpretation , abstracted Anatomical Region Laterality Modality Other Historical Provider MD KRIS Kruse from Last 3 Months or Most Recently Relevant to Health Maintenance Advance Directives Documents on File Type Date Recorded Patient Administrative Specialist Expl anation Health Care Decision (hx) 06/13/2023 HE ALTH CARE PROXY Health Care Decision (hx) 06/13/2023 HE ALTH CARE PROXY Health Care Decision (hx) 06/13/2023 HE ALTH CARE PROXY Health Care Decision (hx) 06/13/2023 HE ALTH CARE PROXY Health Care Decision (hx) 06/13/2023 HE ALTH CARE PROXY Health Care Decision (hx) 06/13/2023 HE ALTH CARE PROXY Health Care Decision (hx) 06/13/2023 [facility] Care Teams Stump Blower Relationship Specialty Start Date End Date Katy Fallon PA [address] [place] [address] PCP - General Primary Care 02/08/20
--- OUTSIDE RECORDS SUMMARY | 2024-06-21 08:01 | XMS_ITS | Encounter Summary ---
Author Organization [facility] Address [address] [place] [address] Care Team Providers Care Director Of Cardiology Name Role Phone Katy Fallon Primary Care Provider + Reason for Visit * Reason Comments Physical Exam Encounter Details Date Type Department Care Team ([facility] st Contact Info) Description 05/28/2024 2:30 PM EST Office Visit Internal Medicine - [place] [address] [place] [address] Katy Fallon PA [address] [place] [address] Routine physical examination (Primary Dx); Type 2 diabetes mellitus with stage 3a chronic kidney disease, without long-term current use of insulin ([facility]); Primary hypertension; Pure hypercholesterolemia; Hypothyroidism, unspecified type Social History Tobacco Use Types Packs/Day Years [...] Record ed Within the last 3 months, ho w many times did you visit the emergency [...] for your loved ones. For example, child support investigator or elderly care for an older [...] file Not on file Not on file documented as of this encounter Last Filed Vital Signs Vital Sign Reading Time Taken Comments Blood Pressure 124/60 05/28/2024 2:31 PM EST Pulse 67 05/28/2024 2:31 PM EST Temperature 36.2 ??C (97.1 ??F) 05/28/2024 2:31 PM ES T Respiratory Rate - - Oxygen Saturation 95% 05/28/2024 2:31 PM EST Inhaled Oxygen Concentration - - Weight 102 kg (224 lb) 05/28/2024 2:31 PM EST Height - - Body Mass Index 31.24 10/22/2023 9:54 AM EDT documented in this encounter Progress Notes * MARKUS Lalfeur - 05/28/2024 2:30 PM EST CHIEF COMPLAINT: Physical Exam IDENTIFIER: Merlin Samaniego is a 74 y.o. old male who presents for evaluation of general medical health. HPI: Patient presents today for routine physical exam. He was last seen by me for follow-up 10/22/2023. Last labs (CMP, hemoglobin A1c, lipids, CBC with differential, magnesium, TSH, vitamin D, urine microalbumin) return on 05/13/2024. States he is compliant with his medications and denies any side effects. Diabetes is stable on Trulicity 1.5 mg weekly and metformin 1 g twice daily with last hemoglobin A1c 6.9. Admits not eating the best, still stress over loss son 07/08/23 OR at age 49, other son 47 y/ohas parkinsons and he lost his dog earlier this year, but got a rescue pup 2 months ago. Also had stopped going to the gym as was doing yard work, but says plans to go back now. Hypertension is stable on lisinopril 5 mg daily. Hyperlipidemia stable on atorvastatin 10 mg daily with last LDL 60, triglycerides 90, HDL 61. Hypothyroidism is stable on levothyroxine 125 mcg 6 days/week with last TSH 1.18. Prostate cancer is followed via urology and did complete radiation treatments earlier this year. Body spasms and cramping with paresthesias began after he had head injury and cervical spine fracture status post fall off a ladder 07/04/2021. He is on gabapentin 300 mg 1 in the morning and 3 at bedtime and baclofen 10 mg 1 in the morning and 2 at bedtime. He also has a very small prescription for oxycodone 5 mg to take if his pain exacerbates which he's taken 1 tab over a year ago. He ambulates with a cane and since the accident he is experience left greater than right pain/cramping and coolness. Following with neurology. HCM: Colonoscopy 06/13/2020, repeat [address] Pham. History of polypectomy 03/21/2016 = tubular adenoma. Eye exams yearly Dental exams every 6 months Other providers: Oncologist at [facility] - prostate cancer Radiation oncologist Dr. Patel - prostate cancer Urologist Dr. Velázquez - BPH, prostate cancer Neurosurgeon Dr. Gonzalez - cervical and thoracic fx's s/p fall off ladder 07/04/[address] Haskins Pain management Dr. Jacobs - neck and back pain due to injuries from fall 07/04/21 Paper Production Engineer at [facility] Pharmacy Informaticist Dr. Dos Santos - diabetes and onychomycosis Wound care Dr. Day - head wound Puller Out [place] DERM Manager Of Digital Dr. Buckner - CKD stage [address] Narayanan - bilateral leg pain Neurologist Dr. Calix/Nancy Turner, [employer] - N/T legs ROS: GENERAL: No malaise, significant weight loss or fever HEENT: No changes in hearing or vision, nose bleeds or other nasal problems NECK: No lumps, goiter, pain or significant neck swelling RESPIRATORY: No cough, wheezing or shortness of breath CARDIOVASCULAR: No chest pain, leg swelling or palpitations GI: No abdominal discomfort, blood in stools or black stools: No heartburn, acid reflux, diarrhea or constipation : No dysuria, frequency or incontinence MUSCULOSKELETAL: Neck pain and muscle spasms (see HPI) SKIN: No lesions, rash or itching PSYCH: No sleep disturbance, mood disorder or recent psychosocial stressors. HEMATOLOGY/LYMPHOLOGY No prolonged bleeding, easy bruisability or swollen nodes ENDOCRINE: No cold or heat intolerance, polyuria, polydipsia or goiter. NEURO: No persistent headache, syncope, seizures, weakness or numbness PAST MEDICAL HISTORY: Patient Active Problem List Diagnosis Date Noted Nocturia 04/14/2024 Nocturnal leg cramps 04/14/2024 Prostate cancer (CMS/HCC) 02/04/2023 BPH (benign prostatic hyperplasia) 02/25/2019 Hypomagnesemia 05/07/2018 Left shoulder pain 05/06/2018 Decreased hearing, bilateral 02/26/2018 Vitamin D deficiency 02/26/2018 Obesity 01/15/2018 Anxiety 08/29/2017 Diabetic neuropathy ([facility]) 05/17/2017 CKD (chronic kidney disease) stage 3, GFR 30-59 ml/min ([facility]) 05/17/2017 DM (diabetes mellitus), type 2 with renal complications ([facility]) 05/17/2017 Hyperlipidemia 05/17/2017 Hypertension 05/17/2017 Hypothyroidism 05/17/2017 AAA (abdominal aortic aneurysm) ([facility]) 05/17/2017 Tubular adenoma of colon 05/17/2017 Onychomycosis 05/05/2017 Sciatica 11/17/2012 Past Surgical History: Procedure Laterality Date COLONOSCOPY 03/21/2016 PROCEDURE: HISTORICAL COLONOSCOPY; COMMENT: polyp = tubular adenoma - repeat 3 years - Dr. Farah TONSILLECTOMY PROCEDURE: HISTORICAL TONSILLECTOMY VASECTOMY PROCEDURE: UT VASECTOMY UNI/BI SPX W/POSTOP SEMEN EXAMS Most Recent Immunizations Administered Date(s) Administered COVID-19 (Moderna/Spikevax) 12yo and older 03/12/2024 H1N1 Inj Preservative Free 06/08/2009 Influenza trivalent, 0.5mL (Fluad) 65yo and older 03/12/2024 Influenza, Unspecified 02/19/2021 Pfizer SARS-CoV-2 COVID-19, mRNA, LNP-S, preservative free 02/05/2022 Pneumococcal conjugate 13 valent (Prevnar 13, PCV13) 2mo and older 08/06/2019 Pneumococcal polysaccharide 23 valent (Pneumovax 23) 2yo and older 03/08/2022 Tdap Tetanus diptheria acellular pertussis (Boostrix; Adacel) 7yo and older 07/04/2021 Zoster Live 08/24/2019 Zoster recombinant (Shingrix) 19yo and older 07/04/2019 HEALTH MAINTENANCE: Health Maintenance Topic Date Due Diabetes: Annual Retina Eye Exam Never done Falls Risk Assessment Never done Hepatitis C Screening Never done Medicare Annual Wellness Visit Never done RSV Immunization Patients 60+ Years Old (1 - 1-dose 75+ series) Never done Diabetes: Blood Sugar Control Test (HGBA1C) 11/11/2024 Diabetes: Annual Foot Exam 12/24/2024 Diabetes: Annual GFR (Glomerular Filtration Rate) 05/13/2025 Diabetes: Annual Urine Albumin-Creatinine Ratio (uACR) 05/13/2025 Hypertension/CHF/CAD Annual BMP Blood Test 05/13/2025 Depression Screening 05/21/2025 Social Influencers of Health Screening 05/21/2025 Colorectal Cancer Screening: Colonoscopy 06/13/2025 Cholesterol Screening (Lipid Panel) 05/13/2029 DTaP,Tdap,and Td Vaccines (3 - Td or Tdap) 07/04/2031 Influenza Vaccine Completed Pneumococcal Vaccine: 65+ Years Completed Zoster Vaccines Completed COVID-19 Vaccine Completed HIB Vaccines Aged Out Hepatitis B Vaccines Aged Out IPV Vaccines Aged Out Hepatitis A Vaccines Aged Out MMR Vaccines Aged Out Varicella Vaccines Aged Out Meningococcal ACWY Vaccine Aged Out HPV Vaccines Aged Out RSV Immunization Patients Under 20 months Aged Out SOCIAL HISTORY: Social History Socioeconomic History Marital status: Spouse name: Not on file Number of children: Not on file Years of education: Not on file Highest education level: Not on file Occupational History Not on file Tobacco Use Smoking status: Never Smokeless tobacco: Never Substance and Sexual Activity Alcohol use: Yes Drug use: No Sexual activity: Not on file Other Topics Concern Not on file Social History Narrative , 2 sons (1 passed 07/08/23), 2 grandsons (twins) FAMILY HISTORY: Family History Problem Relation Name Age of Onset Heart attack Son Parkinson's Disease Son Family Status Relation Name Status Son at age 49 Son Alive No partnership data on file MEDICATIONS DISCONTINUED/REORDERED: Medications Discontinued During This Encounter Medication Reason dulaglutide (Trulicity) 0.75 mg/0.5 mL pen injector injection Therapy completed senna-docusate (PERICOLACE) 8.6-50 mg per tablet Therapy completed traZODone (DESYREL) 50 mg tablet Therapy completed ACTIVE MEDICATIONS: Outpatient Medications Marked as Taking for the 05/28/24 encounter (Office Visit) with MARKUS Lafleur Medication Sig Dispense Refill atorvastatin (LIPITOR) 10 mg tablet Take 1 Tablet by mouth every evening. baclofen (LIORESAL) 10 mg tablet Take 1 tablet (10 mg total) by mouth 3 (three) times a day. 270 tablet 1 blood-glucose meter kit Dx: E11.22 cholecalciferol (VITAMIN D-3) 50 mcg (2,000 unit) capsule Take 1 Capsule by mouth every morning. cyanocobalamin (VITAMIN B-12) 1,000 mcg tablet Take 1 Tablet by mouth daily. FREESTYLE LANCETS MISC Use bid and prn Dx:E11.22 gabapentin (NEURONTIN) 300 mg capsule Take 1 capsule (300 mg total) by mouth 4 (four) times a day. 120 capsule 3 levothyroxine (SYNTHROID, LEVOTHROID) 125 mcg tablet TAKE 1 TABLET BY MOUTH DAILY 6 DAYS PER WEEK. SKIP ON SEVENTH DAY. lisinopriL (PRINIVIL,ZESTRIL) 5 mg tablet TAKE 1 TABLET BY MOUTH EVERY DAY magnesium 250 mg tablet Take 1 mcg by mouth daily. metFORMIN (GLUCOPHAGE) 1,000 mg tablet Take 1 Tablet by mouth 2 times daily (with meals). Trulicity 1.5 mg/0.5 mL pen injector injection Inject 0.5 mL (1.5 mg total) under the skin 1 (one) time per week. [DISCONTINUED] dulaglutide (Trulicity) 0.75 mg/0.5 mL pen injector injection Inject 0.5 mL (0.75 mgtotal) under the skin 1 (one) time per week. 0.5 mL 3 [DISCONTINUED] traZODone (DESYREL) 50 mg tablet Take 1 tablet (50 mg total) by mouth at bedtime as needed for sleep. ALLERGIES: No Known Allergies PHYSICAL EXAM: Visit Vitals BP 124/60 (BP Location: Left arm, Patient Position: Sitting, BP Cuff Size: Large adult) Pulse 67 Temp 36.2 ??C (97.1 ??F) (Temporal) Wt 102 kg (224 lb) SpO2 95% BMI 31.24 kg/m?? Smoking Status Never BSA 2.22 m?? Body mass index is 31.24 kg/m??. APPEARANCE: Alert and in no acute distress EYES: Conjunctiva and sclera normal. EARS: External ears normal. NOSE/SINUS: Nares normal. No drainage. MOUTH/THROAT: no erythema or exudates NECK: Neck supple, no adenopathy, thyroid symmetric and of normal size HEART: RRR CHEST: non-tender LUNG: clear to auscultation LYMPH NODES: grossly normal ABDOMEN: Bowel sounds normoactive, soft, non-tender (MALE)/RECTAL (MALE): Deferred BACK: No pain to palpation with good flexion and extension EXTREMITIES: Extremities warm and well perfused without edema NEURO: Awake, alert and oriented x 3 SKIN: Skin color normal. No rashes or lesions. LABS: Appointment on 05/13/2024 Component Date Value Ref Range Status Magnesium 05/13/2024 1.8 (L) 1.9 - 2.6 mg/dL Final Sodium 05/13/2024 142 133 - 145 mmol/L Final Potassium 05/13/2024 4.3 3.5 - 5.5 mmol/L Final Chloride 05/13/2024 108 96 - 110 mmol/L Final CO2 05/13/2024 28 21 - 32 mmol/L Final Anion Gap 05/13/2024 6 3 - 11 Final Glucose 05/13/2024 154 (H) 70 - 100 mg/dL Final BUN 05/13/2024 22 5 - 25 mg/dL Final Creatinine 05/13/2024 1.46 (H) 0.70 - 1.30 mg/dL Final eGFR 05/13/2024 50 (L) >=60 mL/min/1.73m2 Final Calculation based on the Chronic Kidney Disease Epidemiology Collaboration (CKD- EPI) equation refitwithout adjustment for race. BUN/Creatinine Ratio 05/13/2024 15.1 Final Calcium 05/13/2024 9.5 8.5 - 10.5 mg/dL Final AST (SGOT) 05/13/2024 21 10 - 42 unit/L Final ALT (SGPT) 05/13/2024 20 10 - 60 unit/L Final Alkaline Phosphatase 05/13/2024 78 42 - 121 unit/L Final Total Protein 05/13/2024 6.9 6.0 - 8.0 g/dL Final Albumin 05/13/2024 4.0 3.2 - 5.0 g/dL Final Total Bilirubin 05/13/2024 0.6 0.0 - 1.4 mg/dL Final Cholesterol 05/13/2024 139 0 - 200 mg/dL Final Triglycerides 05/13/2024 90 0 - 150 mg/dL Final HDL 05/13/2024 61 >=40 mg/dL Final LDL Calculated 05/13/2024 60 0 - 100 mg/dL Final VLDL Cholesterol Pablo 05/13/2024 18 mg/dL Final Non HDL Chol. (LDL+VLDL) 05/13/2024 78 <145 mg/dL Final Chol/HDL Ratio 05/13/2024 2.3 0.0 - 4.4 Final Hemoglobin A1C 05/13/2024 6.9 (H) <6.5 % Final Mean Bld Glu Estim. 05/13/2024 151 mg/dL Final TSH 05/13/2024 1.18 0.40 - 4.00 mcIU/mL Final Vit D, 25-Hydroxy 05/13/2024 42.1 30.0 - 80.0 ng/mL Final Creatinine, Urine 05/13/2024 160.0 mg/dL Final Microalb, Ur 05/13/2024 14.0 0.0 - 29.0 mg/L Final Microalb/Creat Ratio 05/13/2024 9 <30 mg/g creat Final WBC 05/13/2024 5.6 4.8 - 10.8 K/mcL Final RBC 05/13/2024 4.20 (L) 4.50 - 5.50 M/mcL Final Hemoglobin 05/13/2024 13.0 (L) 13.5 - 17.5 g/dL Final Hematocrit 05/13/2024 40.4 (L) 42.0 - 54.0 % Final MCV 05/13/2024 95.5 79.0 - 98.0 FL Final MCH 05/13/2024 30.7 27.0 - 32.0 pcg Final MCHC 05/13/2024 32.2 32.0 - 37.0 g/dL Final RDW 05/13/2024 12.7 11.0 - 15.0 % Final Platelets 05/13/2024 185 130 - 400 K/mcL Final MPV 05/13/2024 10.2 7.0 - 11.0 FL Final NRBC 05/13/2024 0.0 <1.0 % Final NRBC Absolute 05/13/2024 0.00 <0.10 K/mcL Final Neutrophils Relative 05/13/2024 68.9 % Final Lymphocytes Relative 05/13/2024 22.0 % Final Monocytes Relative 05/13/2024 5.8 % Final Eosinophils Relative 05/13/2024 2.2 % Final Basophils Relative 05/13/2024 0.7 % Final Immature Granulocytes Relative 05/13/2024 0.4 % Final Neutrophils Absolute 05/13/2024 3.83 1.50 - 7.00 K/mcL Final Lymphocytes Absolute 05/13/2024 1.22 1.00 - 5.00 K/mcL Final Monocytes Absolute 05/13/2024 0.32 0.20 - 1.00 K/mcL Final Eosinophils Absolute 05/13/2024 0.12 0.00 - 0.50 K/mcL Final Basophils Absolute 05/13/2024 0.04 0.00 - 0.20 K/mcL Final Immature Granulocytes Absolute 05/13/2024 0.02 0.00 - 0.03 K/mcL Final Abstract on 04/14/2024 Component Date Value Ref Range Status Annual BMP Blood Test 10/17/2023 abstracted Final HM Colonoscopy 06/13/2020 no interpretation, abstracted Final HM Diabetes: Annual Foot Exam 12/25/2023 abstracted Final HM Urine Albumin Creatinine Ratio 01/22/2023 abstracted Final LDL/HDL Ratio 10/17/2023 2 0 - 4 Final Triglycerides 10/17/2023 101 0 - 150 mg/dL Final Cholesterol 10/17/2023 154 0 - 200 mg/dL Final HDL 10/17/2023 63 40 mg/dL Final LDL Cholesterol 10/17/2023 71 0 - 100 mg/dL Final Hemoglobin A1C 10/17/2023 6.6 (A) 6.5 % Final Medication and lab orders: No orders of the defined types were placed in this encounter. Other orders: None IMPRESSION: 1. Routine physical examination 2. Type 2 diabetes mellitus with stage 3a chronic kidney disease, without long- term current use of insulin ([facility]) 3. Primary hypertension 4. Pure hypercholesterolemia 5. Hypothyroidism, unspecified type PLAN: 1. Routine physical exam. Reviewed most recent labs. Diet and exercise discussed. Colonoscopy up-to-date. Continue with routine eye and dental exams. 2. DM type II CKD stage III, without long-term use of insulin. Stable/suboptimal and discussed improving diet. Continue with same medications (see HPI). 3. Hypertension. Stable. Continue with lisinopril 5 mg daily. 4. Hyperlipidemia. Stable. Reviewed most recent lipids. Continue atorvastatin 10 mg daily along with diet. 5. Hypothyroidism. Stable. Reviewed most recent TSH. Continue with levothyroxine 125 mcg 6 days/week. Follow-up 6 months. Call sooner if needed. MARKUS Lafleur on 05/28/2024 at 4:46 PM EST documented in this encounter Plan of Treatment Upcoming Encounters Date Type Department Care Team (Late st Contact Info) Description 12/02/2024 9:30 AM EDT Office Visit Internal Medicine - [place] [address] [place] [address] Katy Fallon PA [address] [facility] [address] [place] [address] 01/18/2025 10:45 AM EDT [facility] [address] [place] [address] Ed Buckner MD [address] [facility] [address] [place] [address] documented as of this encounter Visit Diagnoses Diagnosis Routine physical examination- Primary Routine general medical examination at a health care facility Type 2 diabetes mellitus with stage 3a chronic kidney disease, without long-term current use of insulin ([facility]) Primary hypertension Unspecified essential hypertension Pure hypercholesterolemia Hypothyroidism, unspecified type documented in this encounter Discontinued Medications Medication Sig Discontinue Reason Start Date End Da te dulaglutide (Trulicity) 0.75 mg/0.5 mL pen injector injection Inject 0.5 mL (0.75 mg total) under the skin 1 (one) time per week. Therapy completed 05/11/2024 05/28/2024 senna-docusate (PERICOLACE) 8.6-50 mg per tablet Take 1 Tablet by mouth at bedtime. Therapy completed 05/28/2024 traZODone (DESYREL) 50 mg tablet Take 1 tablet (50 mg total) by mouth at bedtime as needed for sleep. Therapy completed 05/28/2024 documented as of this encounter Historical Medications * This list may reflect changes made after this encounter. Medication Sig Dispensed Refills Start Date End Date Trulicity 1.5 mg/0.5 mL pen injector injection Inject 0.5 mL (1.5 mg total) under the skin 1 (one) time per week. 04/21/2024 added in this encounter Additional Health Concerns Assessment Noted Time PHQ-9 Depression Total Score: 0 05/21/20 24 1:07 PM EST documented as of this encounter Care Teams Director Of Cardiology Relationship Specialty Start Date End Date Katy Fallon PA [address] [place] [address] PCP - General Primary Care 02/08/20 documented as of this encounter
--- OUTSIDE RECORDS SUMMARY | 2024-06-21 08:01 | XMS_ITS | Patient Health Record ---
Author Organization [facility] Address [address] [place] [address] Care Team Providers Care Medical Detailist Name Role Phone Redd Smallwood Primary Care Provider Jeanette Swan Unavailable [phone] Allergies No Known Allergies Results Component Value Reference Range Notes HEMOGLOBIN A1C (GLYCOHEMOGLO BIN) Reviewed date:12/25/2023 08:59:08 AM Interpretation: Performing Lab: Notes/Report: TOTAL HEMOGLOBIN (HGBA1C) 6.5 Reason For Referral Diagnosis 1 Other hammer toe(s) (acquired), left foot (M20.42) Diagnosis 2 Other hammer toe(s) (acquired), right foot (M20.41) Diagnosis 3 Type 2 diabetes jaja itus with polyneuropathy (E11.42) Diagnosis 4 Raynaud's disease wi thout gangrene (I73.00) Referring Provider First Name Redd Referring Provider Last Name Cl [facility] Referred Provider Jeanette Dos Santos Referred Address [address],[place],[address], Referred Provider Specialty Podiatry Referral Priority Routine Medications Medication SIG (Take, Route, Frequency, Duration) Notes Start Date End Date Status Flomax Active Atorvastatin Calcium 10 MG 1 tablet Orally Once a day Active Baclofen 10 MG as directed Orally Twice a day Active Magnesium Citrate Ac tive Hyaluronic Acid Not- Taking metFORMIN HCl 1000 MG 1 tablet with a me al Orally twice daily Active MiraLax Active Vitamin D3 Active Tylenol Not-Taking Docusate Sodium 100 MG 1 capsule as need ed Orally Once a day Active traZODone HCl 50 MG as directed Orally O nce a day Not-Taking Trulicity 1.5 MG/0.5ML as directed Subcutaneous Active Vitamin B 12 Active oxyCODONE HCl 5 MG 1 tablet as needed Orally every 6 hrs Not-Taking Lisinopril 5 MG 1 tablet Orally Once a day Active Gabapentin 300 MG 1 capsule Orally thr ee times daily Active Levothyroxine Sodium 125 MCG 1 tablet in the morning on an empty stomach Orally Once a day Active Immunizations Vaccine Route Administration Date Status Comme nts COVID-19 Pfizer BioNTech Vaccine Unknown 02/08/2022 Administered 4th 08/23/2021 3rd 02/19/2021 2nd 08/02/2020 1st 07/12/2020 Influenza Unknown 03/06/2023 Administered Social History Tobacco Use: Social History Observation Description Date Details (start date - stop date) Never Smoker NA - NA Tobacco Use/Smoking Question Answer Notes Are you a: nonsmoker Additional Findings: Tobacco Non-User Aggressive non-smoker Tobacco use other than smoking: Question Answer Notes Are you an other tobacco user? No AUDIT-C (Standard) Question Answer Notes Did you have a drink contain ing alcohol in the past year? Yes How often did you have six o r more drinks on one occasion in the past year? Less than monthly (1 point) How many drinks did you have on a typical day when you were drinking in the past year? 1 or 2 drinks (0 point) How often did you have a dri nk containing alcohol in the past year? Monthly or less (1 point) Points 2 Interpretation Negative Problems Problem Type SNOMED Code ICD Code Onset Dates Problem Status W/U Status Risk Notes Problem Acquired hammer toe of right foot (784069612671 9105) Other hammer toe(s) (acquired), right foot (M20.41) Active confirmed Problem Acquired hammer toe of left foot ([id number] 9103) Other hammer toe(s) (acquired), left foot (M20.42) Active confirmed Problem [id number] 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.42) Active confirmed Problem [id number] Raynaud's diseas e without gangrene (I73.00) Active confirmed Vital Signs Height 5 ft 11 in in 04/26/2024 Weight 220 lbs 04/26/2024 BMI 30.68 kg/m2 04/26/2024 Encounters Encounter Location Date Provider Diagnosis [address] [address] 08/14/2023 Jeanette Dos Santos Type 2 diabetes mellitus with polyneuropathy E11.42 and Tinea unguium B35.[address] [address] 12/25/2023 Jeanette Dos Santos Type 2 diabetes mellitus with polyneuropathy E11.42 and Tinea unguium B35.[address] [address] 04/26/2024 Jeanette Dos Santos Type 2 diabetes mellitus with polyneuropathy E11.42 ; Xerosis of skin L85.3 and Tinea unguium B35.1 Assessments Encounter Date Diagnosis (ICD Code) Assessment Notes Treatment Notes Treatment Clinical Notes Section Notes 08/14/2023 Tinea unguium (ICD-10 - B35.1) 08/14/2023 Type 2 diabetes mellitus with polyneuropathy (ICD-10 - E11.42) 12/25/2023 Type 2 diabetes mellitus with polyneuropathy (ICD-10 - E11.42) 04/26/2024 Xerosis of skin (ICD-10 - L85.3) 04/26/2024 Type 2 diabetes mellitus with polyneuropathy (ICD-10 - E11.42) 04/26/2024 Tinea unguium (ICD-10 - B35.1) 12/25/2023 Tinea unguium (ICD-10 - B35.1) Plan Of Treatment Next Appt Details Provider Name:Jeanette Carr Adolfo landy, 08/26/2024 09:00:00 AM, [address] [place], [address], Insurance Providers Payer Name Payer Address Payer Phone Subscriber Number Group Number Insured Name Patient Relationship to Insured Coverage Start Date Coverage End Date [employer] Preferred [address] [place] [address] [phone] [id number] Merlin Samaniego Self - patient is the insured Medical (General) History Medical History History ICD Code Back,Hip,and Knee pain Broken bones CAD (Cholesterol) type II diabetes Measles Chicken pox Joint implants/screws Numbness thyroid Prostate cancer Surgical History Surgery Date(Month/Year) neck surgery,back,ribs 06/2021
--- OUTSIDE RECORDS SUMMARY | 2024-06-21 08:01 | XMS_ITS ---
Author Organization [facility] keena TrejoDeep Water Address [address] [facility] [place] [address] Care Team Providers Care Credit Collections Rep Name Role Phone Redd Smallwood Primary Care Provider Jeanette Swan Unavailable [phone] Allergies No Known Allergies REASON FOR VISIT At Risk Footcare Medications Medication SIG (Take, Route, Frequency, Duration) Notes Start Date End Date Status Docusate Sodium 100 MG 1 capsule as need ed Orally Once a day Active Hyaluronic Acid Not- Taking Flomax Active Magnesium Citrate Ac tive metFORMIN HCl 1000 MG 1 tablet with a me al Orally twice daily Active MiraLax Active oxyCODONE HCl 5 MG 1 tablet as needed Orally every 6 hrs Not-Taking Baclofen 10 MG as directed Orally Twice a day Active Tylenol Not-Taking Atorvastatin Calcium 10 MG 1 tablet Orally Once a day Active Lisinopril 5 MG 1 tablet Orally Once a day Active Trulicity 1.5 MG/0.5ML as directed Subcutaneous Active Gabapentin 300 MG 1 capsule Orally thr ee times daily Active Levothyroxine Sodium 125 MCG 1 tablet in the morning on an empty stomach Orally Once a day Active traZODone HCl 50 MG as directed Orally O nce a day Not-Taking Vitamin B 12 Active Vitamin D3 Active Social History Tobacco Use: Social History [...] Signs Height 5 ft 11 in in 08/14/2023 Weight 220 lbs 08/14/2023 BMI 30.68 kg/m2 08/14/2023 Encounters Encounter Location Date Provider Diagnosis [facility] [address] [place] [address] 08/14/2023 Jeanette Dos Santos Type 2 diabetes mellitus with polyneuropathy E11.42 and Tinea unguium B35.1 Assessments Encounter Date Diagnosis (ICD Code) Assessment Notes Treatment Notes Treatment Clinical Notes Section Notes 08/14/2023 Type 2 diabetes mellitus with polyneuropathy (ICD-10 - E11.42) 08/14/2023 Tinea unguium (ICD-10 - B35.1) Plan Of Treatment Next Appt Details Follow Up: 4 Months, Reason: Provider Name:Jeanette bill, 08/26/2024 09:00:00 AM, [address] [facility], [place], [address], Procedure Notes * Category Sub-Category Detail Notes [...] as necessary. Patient chooses, no pharmaceutical tx (11485) Keratoma Treatment Parring or Cutting o f Benign Hyperkeratotic Lesion(s) 01085 (2-4 Lesions) - The Benign hyperkeratotic lesions, as described above were pared, and/or cut utilizing a sterile #15 blade, tissue nippers, and/or dremel Progress Notes * Merlin GIORDANO ADOB: [birth year] (73 yo M)Acc No.[id number]:08/14/2023 Progress Note Patient:?Merlin Giordano Provider:?Jeanette Dos Santos DPM :1950???Age:73 Y???Sex:Male Rene e:08/14/2023 Address:[address] [place] [address] , [place], [id number] Pcp:Redd Smallwood Subjective: * Chief Complaints: * ???At Risk Footcare * HPI: ???At Risk footcare:?Pt States Last PCP Visit:?Date?05/13/2023 * ROS:?General/Constitutional:?Nausea?denies.?Vomiting?denies.?Hunger Thirst?denies.?Loss appetite?denies.?Chills?denies.?Fatigue?denies.?Fever?denies.?Night Sweats?denies.?Unexplained weight loss?denies.?Unexplained weight gain?denies.?HEENTM:?Dentures?admits.?Dizziness?denies.?Glasses/contacts?admits.?Retinopathy?de nies.?Blurred/double vision?admits.?TMJ?denies.?Discharge/drainage?denies.?Implants?denies.?Sore throat?denies.?Dental implants?denies.?Hard of hearing ?denies.?Difficulty chewing/swallowing/speaking?denies.?Nose bleeds?denies.?Sore mouth?denies.?Respiratory:?On Oxygen?denies.?Pneumonia/pleurisy?denies.?Bronchitis?denies.?Emphysema?denies.?C oughing?denies.?Cough blood?denies.?Shortness of breath?denies.?Wheezing?denies.?Cardiovascular:?Pacemaker?denies.?MVP?denies.?WPW?denies.?CHF?denies.?Heart attack?denies.?Septal defect?denies.?Rapid beat?denies.?Chest pain ?denies.?Atrial Fib.?denies.?Murmur/Palpitations?denies.?Gastrointestinal:?Hemorrhoids?denies.?Stomach/Abdominal pain?denies.?Dark blood stool?denies.?Irritable bowel ?denies.?Constipation?denies.?Diarrhea?denies.?Hematology:?Swelling?denies.?Clots?denies.?Varicose Veins?denies.?Bruising?denies.?Bleeding problem?denies.?Genitourinary:?Blood urine?denies.?Frequent/Painfu/urination/bladder control?denies.?Kidney stones?denies.?Infection (UTI)?denies.?Nephropathy?denies.?sex trans dis (STD)?denies.?Prostate?denies.?Musculoskeletal:?Hammertoes?denies.?Bunions?denies.?Back Pain?denies.?Muscle Cramps/ Resting?admits.?Muscle cramps / walking?denies.?Generalized aches and pains?admits.?Weakness?denies.?Integ.:?[place]?denies.?Scars?admits.?Corns/calluses?denies.?Ingrown nails?denies.?Painful nails?denies.?Open Sores?denies.?Rashes?denies.?Neurologic:?Difficulty sleeping?admits.?Brain disorder?denies.?Numbness?admits.?Balance trouble?admits.?Confusion?denies.?Fainting/blackouts?denies.?Tingling?admits.?Tr emors?denies.? * Medical History:? * Surgical History:?neck surge ry,back,ribs 06/2021 * Hospitalization/Major Diagno stic Procedure:?No Hospitalization History. * Family History:?Mother: dece ased, diabetes, arthritis.?Father: [...] Wt: 220, BMI:30.68, Shoe size: 12, BS: 125. * ???Past Orders: ???Lab:HEMOGLOBIN A1C (GLYCO HEMOGLOBIN) (Order Date - 05/13/2023) (Collection Date - 05/13/2023) ? Value Reference Range ?TOTAL HEMOGLOBIN (HGBA1C) 6.5 * Examination: ???Ophthalmology Referral: ?DIABETES EYE EXAM?Neurological: [...] decreased, B/L dystrophic (thin,shiny).?PIGMENTATION:? rubrous Forefoot B/L.?EDEMA:? 1/4 B/L.? Assessment: * Assessment: 1.?Tinea unguium - B35.1?2.? Type 2 diabetes mellitus with polyneuropathy - E11.42 (Primary)? Plan: * Treatment: * Procedures:?Debride Nail 6-10:?Nail debridement?Nail debridement performed extensively to reduce/remove overall nail length and girth, subungual debris, and necrotic tissue, by manual and electrical means with use of a nail nipper and/or dremel, to more viable healthy nail plate or bed tissue 6-10. Silver nitrate used for any petechial bleeding as necessary. Patient chooses, no pharmaceutical tx (11924).?Keratoma Treatment:?Parring or Cutting of Benign Hyperkeratotic Lesion(s)?21807 (2-4 Lesions) - The Benign hyperkeratotic lesions, as described above were pared, and/or cut utilizing a sterile #15 blade, tissue nippers, and/or dremel.? * Procedure Codes:?29110 DEBRI DE NAIL, 6 OR MORE, Modifiers: XS 59884 TRIM SKIN LESIONS, 2 TO 4, Modifiers: XS * Follow Up:?4 Months * Images: * Sign off status: Completed true * Provider:?Jeanette Dos Santos, TEX Date:? Generated for Holly jones/Quinn/Ellen on:?06/21/2024 08:00 AM EST History and Physical Notes * HPI (History of Present Illness) Category Sub-Category Detail Notes Category Not es At Risk footcare Pt States Last PCP Visit: Date: 3 Examination Category Sub-Category Detail Notes Category Not [...]
--- OUTSIDE RECORDS SUMMARY | 2024-06-21 08:01 | XMS_ITS ---
Author Organization [facility] Address [address] [facility] [place] [address] Care Team Providers Care Medical Staffing Coordinator Name Role Phone Redd Smallwood Primary Care Provider Jeanette Swan Unavailable [phone] Allergies No Known Allergies REASON FOR VISIT At Risk Footcare, Skin problem(s) Medications Medication SIG (Take, Route, Frequency, Duration) Notes Start Date End Date Status Lisinopril 5 MG 1 tablet Orally Once a day Active Gabapentin 300 MG 1 capsule Orally thr ee times daily Active Levothyroxine Sodium 125 MCG 1 tablet in the morning on an empty stomach Orally Once a day Active Atorvastatin Calcium 10 MG 1 tablet Orally Once a day Active Baclofen 10 MG as directed Orally Twice a day Active Magnesium Citrate Ac tive Vitamin D3 Active Docusate Sodium 100 MG 1 capsule as need ed Orally Once a day Active Trulicity 1.5 MG/0.5ML as directed Subcutaneous Active Vitamin B 12 Active Flomax Active metFORMIN HCl 1000 MG 1 tablet with a me al Orally twice daily Active Tylenol Not-Taking traZODone HCl 50 MG as directed Orally O nce a day Not-Taking oxyCODONE HCl 5 MG 1 tablet as needed Orally every 6 hrs Not-Taking Hyaluronic Acid Not- Taking MiraLax Active Social History Tobacco Use: Social History [...] less (1 point) Points 2 Interpretation Negative Vital Signs Height 5 ft 11 in in 04/26/2024 Weight 220 lbs 04/26/2024 BMI 30.68 kg/m2 04/26/2024 Encounters Encounter Location Date Provider Diagnosis [facility] [place] [address] [place] [address] 04/26/2024 Jeanette Dos Santos Type 2 diabetes mellitus with polyneuropathy E11.42 ; Xerosis of skin L85.3 and Tinea unguium B35.1 Assessments Encounter Date Diagnosis (ICD Code) Assessment Notes Treatment Notes Treatment Clinical Notes Section Notes 04/26/2024 Type 2 diabetes mellitus with polyneuropathy (ICD-10 - E11.42) 04/26/2024 Xerosis of skin (ICD-10 - L85.3) 04/26/2024 Tinea unguium (ICD-10 - B35.1) Plan Of Treatment Next Appt Details Follow Up: 4 Months, Reason: Provider Name:Jeanette bill, 08/26/2024 09:00:00 AM, [address] [facility], [place], [address], Procedure Notes * Category Sub-Category Detail Notes Debride Nail 6-10 Nail debridement Performance o f this nail treatment by a nonprofessional would put this patients foot and overall health at risk. Therefore, debridement to affected nail(s), as described in exam, was performed extensively to reduce/remove overall nail length, girth, thickness, subungual debris, and necrotic tissue, by manual and/or electrical means through the use of a nail nipper and/or dremel-type card grinder, to a more viable healthy nail plate or bed tissue 6-10 nails in total. Silver nitrate was used for any petechial bleeding as necessary. Definitive antifungal treatment options, both pharmaceutical and surgical, have been reviewed and discussed with the patient. The patient solely prefers the use of intermittent/as needed professional debridement services for their nail condition and understands the need for additional periodic treatments to maintain effectiveness in symptomatic relief - 33680 Keratoma Treatment Parring or Cutting o f Benign Hyperkeratotic Lesion(s) (-56) 2-4 Lesions - The Benign hyperkeratotic lesions, ( 4) in total, locations as stated and described in exam, were pared, and/or cut utilizing a sterile 15 blade, tissue nippers, and/or power [employer] instrumentation - 90515 Progress Notes * KENNYMerlin PLATA ADOB: [birth year] (74 yo M)Acc No.[id number]:04/26/2024 Progress Note Patient:?Merlin GIORDANO Provider:?Jeanette Dos Santos DPM :1950???Age:74 Y???Sex:Male Rene e:04/26/2024 Address:[address] [place] [address] [id number] Pcp:Redd Smallwood Subjective: * Chief Complaints: * ???At Risk FootcareSkin prob selin(s) * HPI: ???At Risk footcare:?Pt States Last PCP Visit:?Date?11/06/2023 ???Skin problems:?Nature:?dryness , scaling.?Location:?B/L .?Duration:?several days.?Course:?worse.? * ROS:?General/Constitutional:?Nausea?denies.?Vomiting?denies.?Hunger Thirst?denies.?Loss appetite?denies.?Chills?denies.?Fatigue?denies.?Fever?denies.?Night Sweats?denies.?Unexplained weight loss?denies.?Unexplained weight gain?denies.?HEENTM:?Dentures?admits.?Dizziness?denies.?Glasses/contacts?admits.?Retinopathy?den ies.?Blurred/double vision?admits.?TMJ?denies.?Discharge/drainage?denies.?Implants?denies.?Sore throat?denies.?Dental implants?denies.?Hard of hearing ?denies.?Difficulty chewing/swallowing/speaking?denies.?Nose bleeds?denies.?Sore mouth?denies.?Respiratory:?On O xygen?denies.?Pneumonia/pleurisy?denies.?Bronchitis?denies.?Emphysema?denies.?Co ughing?denies.?Cough blood?denies.?Shortness of breath?denies.?Wheezing?denies.?Cardiovascular:?Pacemaker?denies.?MVP?denies.?WPW?denies.?CHF?denies.?Heart attack?denies.?Septal defect?denies.?Rapid beat?denies.?Chest pain ?denies.?Atrial Fib.?denies.?Murmur/Palpitations?denies.?Gastrointestinal:?Hemorrhoids?denies.?Stomach/Abdominal pain?denies.?Dark blood stool?denies.?Irritable bowel ?denies.?Constipation?denies.?Diarrhea?denies.?Hematology:?Swelling?denies.?Clots?denies.?Varicose Veins?denies.?Bruising?denies.?Bleeding problem?denies.?Genitourinary:?Blood urine?denies.?Frequent/Painfu/urination/bladder control?denies.?Kidney stones?denies.?Infection (UTI)?denies.?Nephropathy?denies.?sex trans dis (STD)?denies.?Prostate?denies.?Musculoskeletal:?Hammertoes?denies.?Bunions?denies.?Back Pain?denies.?Muscle Cramps/ Resting?admits.?Muscle cramps / walking?denies.?Generalized aches and pains?admits.?Weakness?denies.?Integ.:?[place]?denies.?Scars?admits.?Corns/calluses?denies.?Ingrown nails?denies.?Painful nails?denies.?Open Sores?denies.?Rashes?denies.?Neurologic:?Difficulty sleeping?admits.?Brain disorder?denies.?Numbness?admits.?Balance t rouble?admits.?Confusion?denies.?Fainting/blackouts?denies.?Tingling?admits.?Abhishek mors?denies.? * Medical History:? * Surgical History:?neck surge [...] medical reasons in the past 12 months??No ???Miscellaneous:?Caffeine: yes, frequency:, 1-2 cups per day. ?Children: no. ?Exercise: yes, walking. ?Marital status: . ?Occupation: Retired. ???Drug/Alcohol:?AUDIT-C (Standard)?Did you have a drink containing alcohol in the past year??Yes ?How often did you have six or more drinks on one occasion in the past year??Less than monthly (1 point) ?How many drinks did you have on a typical day when you were drinking in the past year??1 or 2 drinks (0 point) ?How often did you have a drink containing alcohol in the past year??Monthly or less (1 point) ?Points?2 ?Interpretation?Negative * Medications:?TakingFlomax me tFORMIN HCl 1000 MG Tablet 1 tablet with a meal Orally twice daily Magnesium Citrate Docusate Sodium 100 MG Capsule 1 capsule as needed Orally Once a day Vitamin D3 Vitamin B 12 Trulicity 1.5 MG/0.5ML Solution Pen-injector as directed Subcutaneous Lisinopril 5 MG Tablet 1 tablet Orally Once a day Levothyroxine Sodium 125 MCG Tablet 1 tablet in the morning on an empty stomach Orally Once a day Gabapentin 300 MG Capsule 1 capsule Orally three times daily Baclofen 10 MG Tablet as directed Orally Twice a day Atorvastatin Calcium 10 MG Tablet 1 tablet Orally Once a day MiraLax Taking Flomax Taking metFORMIN HCl 1000 MG Tablet 1 tablet with a meal Orally twice daily Taking Magnesium Citrate Taking Docusate Sodium 100 MG Capsule 1 capsule as needed Orally Once a day Taking Vitamin D3 Taking Vitamin B 12 Taking Trulicity 1.5 MG/0.5ML Solution Pen-injector as directed Subcutaneous Taking Lisinopril 5 MG Tablet 1 tablet Orally Once a day Taking Levothyroxine Sodium 125 MCG Tablet 1 tablet in the morning on an empty stomach Orally Once a day Taking Gabapentin 300 MG Capsule 1 capsule Orally three times daily Taking Baclofen 10 MG Tablet as directed Orally Twice a day Taking Atorvastatin Calcium 10 MG Tablet 1 tablet Orally Once a day Taking MiraLax Not-Taking/PRNHyaluronic Acid traZODone HCl 50 MG Tablet as directed Orally Once a day Tylenol oxyCODONE HCl 5 MG Tablet 1 tablet as needed Orally every 6 hrs Medication List reviewed and reconciled with the patientNot-Taking/PRN Hyaluronic Acid Not-Taking/PRN traZODone HCl 50 MG Tablet as directed Orally Once a day Not-Taking/PRN Tylenol Not-Taking/PRN oxyCODONE HCl 5 MG Tablet 1 tablet as needed Orally every 6 hrs Medication List reviewed and reconciled with the patient * Allergies:?N.K.D.A.yes[Aller gies Verified] Objective: * Vitals:?Ht: 5 ft 11 in, Wt: 220, BMI: 30.68, Shoe size: 12, BS: 145, Wt-k.79 kg. * ???Past Orders: ???Lab:HEMOGLOBIN A1C (GLYCO HEMOGLOBIN) (Order Date - 11/03/2023) (Collection Date & Time - 11/03/2023) ? Value Reference Range ?TOTAL HEMOGLOBIN (HGBA1C) [...] exam reveals Keratotic lesion(s) located at, TA, T5 , Plantar Heel(s), B/L, Skin shows sign(s) of, dryness, scaling, in a stocking fashion, no fissure(s) present, B/L.?Vascular: ?DP PULSES(B):? 2/4, B/L.?PT PULSES(B):? 2/4, B/L.?CAPILLARY FILL TIME:? delayed, all digits, B/L.?TROPHIC CONDITION-TEXTURE/ELASTICITY/TURGOR/HAIR GROWTH(B):? sparce hair growth decreased, B/L dystrophic (thin,shiny).?TEMPERTURE GRADIENT(C):? decreased, cool to cold, proximal to distal, B/L.?PIGMENTATION:? rubrous Forefoot B/L.?EDEMA(C):? 1/ B/L.? Assessment: * Assessment: 1.?Xerosis of skin - L85.3 ( Primary)???Specify :Acute problem, Uncomplicated (3),Rx Management (4)???2.?Type 2 diabetes mellitus with polyneuropathy - E11.42???3.?Tinea unguium - B35.1??? Plan: * Treatment: * Procedures:?Debride Nail 6-10:?Nail debridement?Performance of this nail treatment by a nonprofessional would put this patients foot and overall health at risk. Therefore, debridement to affected nail(s), as described in exam, was performed extensively to reduce/remove overall nail length, girth, thickness, subungual debris, and necrotic tissue, by manual and/or electrical means through the use of a nail nipper and/or dremel-type card grinder, to a more viable healthy nail plate or bed tissue 6-10 nails in total. Silver nitrate was used for any petechial bleeding as necessary. Definitive antifungal treatment options, both pharmaceutical and surgical, have been reviewed and discussed with the patient. The patient solely prefers the use of intermittent/as needed professional debridement services for their nail condition and understands the need for additional periodic treatments to maintain effectiveness in symptomatic relief - 54056.?Keratoma Treatment:?Parring or Cutting of Benign Hyperkeratotic Lesion(s)?(-56) 2-4 Lesions - The Benign hyperkeratotic lesions, ( 4) in total, locations as stated and described in exam, were pared, and/or cut utilizing a sterile 15 blade, tissue nippers, and/or power dremel instrumentation - 53849.? * Procedure Codes:?21142 DEBRI DE NAIL, 6 OR MORE, Modifiers: XS 65653 TRIM SKIN LESIONS, 2 TO 4, Modifiers: XS * Preventive Medicine:? ??Counseling:?Discussion:?-13: Office or other outpatient visit for the evaluation and management of an established patient, which required a medically appropriate history and/or examination and LOW level of DECISION MAKING for: 1 STABLE ACUTE UNCOMPLICATED PROBLEM, 2 OR MORE MINOR PROBLEMS, OR 1 STABLE CHRONIC PROBLEM, THAT POSE(S) A LOW RISK FOR MORBIDITY/MORTALITY. The visit on the day of the encounter encompassed interpreting the data and educating the patient as to the nature of their condition, treatment options available according to their individual PMH, meds, allergies, and overall health/living conditions, as well as any potential risks or complications that may occur from a failure to adhere to, and participate in, the recommended course of therapy. The discussion included a complete verbal, and/or written explanation of the examination results, any x-rays taken, the proposed diagnosis, and outline of the treatment plan. A schedule for future care needs was also explained. The patient verbalized an understanding of the instructions at this time and agreed to be an active participant in their treatment. If the patient should think of any questions or concerns after the visit, I have encouraged the patient to call the office.?Xerosis:?The patient was counseled on the diagnosis, potential etiologies, and treatment options for their skin condition. We discussed the risks and benefits of each option from performing no treatment, to utilizing OTC topical skin creams/ointments, to utilizing prescription topical creams/ointments, to utilizing customized compounded topical medications and use of nocturnal occlusion with any/all previously detailed therapies. We discussed the advantages and disadvantages of each possible treatment and importance for adherence to all the recommended therapies for optimum success and avoid potential complications such as open sore/infection/possible hospitalization. We discussed the potential effectiveness of each topical preparation as well as each ones possible side effects and/or patient medication interactions. Patient questions re: use, dosage, successful outcomes, and application consistency were reviewed and the patient verbalized that all answers were clearly understood. The patient has decided to apply Rx skin creams to their feet save the interspaces while paying special attention to the heels. Such was sent to their pharmacy at the time of visit.? * Follow Up:?4 Months * Images: * Sign off status: Completed true * Provider:?Jeanette Dos Santos DPM Date:?06/2023 Generated for Holly jones/Quinn/Ellen on:?06/21/2024 08:00 AM EST History and Physical Notes * HPI (History of Present Illness) Category Sub-Category Detail Notes Category Not es Skin problems Nature: dryness , scaling Location: B/L Duration: several days Course: worse At Risk footcare Pt States Last PCP [...] s Keratotic lesion(s) located at, TA, T5 , Plantar Heel(s), B/L, Skin shows sign(s) of, dryness, scaling, in a stocking fashion, no fissure(s) present, B/L Ophthalmology Referral DIABETES EYE EXAM Procedu re Performed:: Yes ?Date of Exam Performed: 08/25/2023 Findings of Diabetic Eye Exam:: no retin opathy Vascular DP PULSES (B): 2/4, B/L PT [...]
== END 2024-06-21 07:55 | disposition home or self-care (01) ==
LOC: HO.SH 07:54
PROVIDERS: Visit Provider Physician Assistant
DX: Z01.118 Encounter for examination of ears and hearing with other abnormal findings (principal); H90.3 Sensorineural hearing loss, bilateral
CPT/HCPCS: 92557

== ENCOUNTER 2024-07-06 13:22 | Outpatient (AMB) | payer MEDICARE, SELFPAY ==
--- NOTE | 2024-07-06 13:29 | MHC.OFFVIS ---
Vital Signs 07/06/24 13:34 Height 5 ft 11 in BP 142/82 H Blood Pressure Location Lt brachial Position Sitting Pulse 65 Pulse Source Pulse Oximeter Pulse Oximetry (%) 98 Oxygen Delivery Method Room Air Comment Patient refused weight check Intake Visit Reasons: Follow up Speech Writer Required: No Accompanied by: Spouse Allergies No Known Allergies Allergy (Verified 07/06/24 13:33) Medication List - Last Reconciled 07/06/24 by LAITH Frank atorvastatin 10 mg PO DAILY baclofen 10 mg PO TID cholecalciferol (vitamin D3) 50 mcg PO DAILY dulaglutide 1.5 mg subcut QWEEK gabapentin 300mg PO in the AM and 900mg PO at bedtime. 30 days gabapentin 300 mg PO BID [hyaluronic acid 200 mg PO] leuprolide acetate (6 month) (Eligard) 45 mg subcut [id number] levothyroxine 125 mcg PO DAILY lisinopril 5 mg PO DAILY magnesium 250 mg PO DAILY mecobalamin (vitamin B12) 1,000 mcg sublingual DAILY metformin 1,000 mg PO BID PRN polyethylene glycol 3350 17 grams PO BEDTIME sennosides-docusate sodium 8.6-50 mg (Senna with Docusate Sodium) 1 tab-cap PO BEDTIME HPI Comments Details: 74-yr-old male presents for urgent visit for subacute onset of low back pain and worsening of BLE L > R pain/paresthesia. Patient is accompanied by his . Pt reports that he started going to the gym earlier this year, however he started having aching low back pain. So he stopped going to the gym, and now the aching pain is moving down into the hips and has tingling down BLE, L > R, into his feet. Now the legs feel weaker, more wobbly when he puts pressure on them, especially on the left. And now, when standing, it is difficult to initiate his left foot to take a step. He denies any specific back injuries while he was going to the gym, just some expected muscle discomfort at times. He did feel he had tweaked his left elbow, so had adjusted his workout routine some for this, and this has been improving. Since, the onset, he as tried to do some home exercises, which seemed to help, but then the pain worsened. Though, he feels the lower back pain has improved at this point. He has been using a walker again- where typically he would only need to use a cane. He feels his chronic back spasms are occurring overall less often- possibly due to a recent increase in his Magnesium dose. He recently did decrease his gabapentin from 300 mg q.a.m. to 900 mg q.h.s., as he was hoping to come off of some of his medications. His LLE is always colder than the right- feels exacerbated since his previous accident. He has trace BLE swelling- this is not new. No new bladder or bowel changes. Denies falls. He has not had any workup for this yet, this is his 1st appointment to discuss this. He states his prostate CA is currently in remission. [facility] Medical History Hypothyroidism HTN (hypertension) Cervicalgia Surgical History History of back surgery History of colonoscopy Hx of tonsillectomy H/O: vasectomy Social History Alcohol intake: current Patient Tobacco Use Status: Never used Tobacco Physical Exam Vital Signs: Last Vital Signs Pulse 65 07/06/24 13:34 BP 142/82 H 07/06/24 13:34 Pulse Ox 98 07/06/24 13:34 Oxygen Delivery Method Room Air 07/06/24 13:34 Const General: cooperative and no acute distress Orientation/consciousness: patient oriented x3 HEENT Head: Yes normocephalic Resp Effort & Inspection: normal respiratory effort and able to speak in complete sentences Neuro Other: Facial expression okay Blink intact. Stooped, forward shoulder posture. Lower cervical spine vertebral prominence. Left lateral paraspinal palpable tenderness. BLE muscle strength 5/5 RLE muscle strength 4+/5 LLE muscle strength 5-/5 BUE rigidity BUE jim: RUE intact. LUE for fluidity RLE foot taps induced left hand tremor. Otherwise no tremor appreciated. Foot taps- BLE, right more so than left, decreased Patient was very slow to stand today, needing to push up with both hands, stooped posture, he could not initiate a step, without holding onto the examiner's hands, steps very short. With walker, short steps, with low floor clearance, steadier with walker. General: patient oriented x3 and CN's II-XI intact bilaterally Cognition (Neuro): normal cognition Deep tendon reflexes (DTR's): Right triceps reflex intensity grade: 3+, Left triceps reflex intensity grade: 3+, Rt Biceps (C5, C6): 2+, Left biceps reflex intensity grade: 2+, Right brachioradialis reflex intensity grade: 2+, Left brachioradialis reflex intensity grade: 2+, Right patellar reflex intensity grade: 2+ and Left patellar reflex intensity grade: 3+ Psych Appearance: grossly normal Mental Status: mental status grossly normal Speech and movement: Normal speech and movement present Affect: normal affect Attitude: cooperative Thought process: Normal thought process present Thought content: Normal thought content present Insight: Good insight present (Psych) Judgement: Good judgement present (Psych) Assessment & Plan Assessment & Plan (1) Gait abnormality: Comment: Marked change in gait Code(s): R26.9 - Unspecified abnormalities of gait and mobility Category: Medical (2) Cervicalgia: Code(s): M54.2 - Cervicalgia Category: Medical (3) Hyperreflexia: Code(s): R29.2 - Abnormal reflex Category: Medical (4) History of cervical fracture: Code(s): Z87.81 - Personal history of (healed) traumatic fracture Category: Medical (5) Bilateral leg paresthesia: Code(s): R20.2 - Paresthesia of skin Category: Medical (6) Peripheral sensory-motor axonal polyneuropathy: Comment: BLE EMG/NCS- BLE mild axonal, sensory-motor peripheral neuropathy. Left L4-S1 innervated muscles c/w mild chronic neuropathic changes of neuropathy. Code(s): G60.8 - Other hereditary and idiopathic neuropathies Category: Medical (7) Prostate cancer: Code(s): C61 - Malignant neoplasm of prostate Category: Medical Plan As patient has had a acute/subacute decompensation in his ability to walk, in setting of worsening BLE L > R paresthesia, weakness, BUE hyporeflexia, LUE hyperreflexia in setting of known history of cervical spine fracture, prostate CA, and peripheral neuropathy: Check labs for common etiologies. XR C-spine, T-spine, L-spine today. Urgent MRI C-spine, , T-spine, and L-spine with and without contrast. Patient requests premedication and open MRI for claustrophobia. P.r.n. alprazolam ordered. will drive patient to appointment. Increase gabapentin to 300 mg b.i.d. and 600 mg q.h.s.. Continue baclofen 10-20 mg b.i.d. Continue OTC magnesium 500 mg q.h.s. for muscle cramps Continue to use walker Reviewed red flag signs for patient to seek urgent medical care. Follow-up as scheduled. Orders: Orders XR lumbar spine 4V min Today M54.9 - Dorsalgia, unspecified, R20.2 - Paresthesia of skin, Z98.890 - Other specified postprocedural states XR thoracic spine 3V Today M54.9 - Dorsalgia, unspecified, R20.2 - Paresthesia of skin, Z98.890 - Other specified postprocedural states Complete Blood Count Auto Diff Today C61 - Malignant neoplasm of prostate, G60.8 - Other hereditary and idiopathic neuropathies, I10 - Essential (primary) hypertension, R73.09 - Other abnormal glucose TSH reflex Free T4 Today C61 - Malignant neoplasm of prostate, G60.8 - Other hereditary and idiopathic neuropathies, I10 - Essential (primary) hypertension, R73.09 - Other abnormal glucose Vitamin B12 and Folate Today C61 - Malignant neoplasm of prostate, G60.8 - Other hereditary and idiopathic neuropathies, I10 - Essential (primary) hypertension, R73.09 - Other abnormal glucose Vitamin B6 Today C61 - Malignant neoplasm of prostate, G60.8 - Other hereditary and idiopathic neuropathies, I10 - Essential (primary) hypertension, R73.09 - Other abnormal glucose Vitamin B1 Today C61 - Malignant neoplasm of prostate, G60.8 - Other hereditary and idiopathic neuropathies, I10 - Essential (primary) hypertension, R73.09 - Other abnormal glucose Hemoglobin A1c Today C61 - Malignant neoplasm of prostate, G60.8 - Other hereditary and idiopathic neuropathies, I10 - Essential (primary) hypertension, R73.09 - Other abnormal glucose Lyme IgG/IgM w/reflex to WB Today C61 - Malignant neoplasm of prostate, G60.8 - Other hereditary and idiopathic neuropathies, I10 - Essential (primary) hypertension, R73.09 - Other abnormal glucose Erythrocyte Sedimentation Rate Today C61 - Malignant neoplasm of prostate, G60.8 - Other hereditary and idiopathic neuropathies, I10 - Essential (primary) hypertension, R73.09 - Other abnormal glucose MR cervical spine wo/w con Today C61 - Malignant neoplasm of prostate, M54.2 - Cervicalgia, M54.9 - Dorsalgia, unspecified, R20.2 - Paresthesia of skin, R26.9 - Unspecified abnormalities of gait and mobility, Z87.81 - Personal history of (healed) traumatic fracture MR thoracic spine wo/w con Today C61 - Malignant neoplasm of prostate, M54.2 - Cervicalgia, M54.9 - Dorsalgia, unspecified, R20.2 - Paresthesia of skin, R26.9 - Unspecified abnormalities of gait and mobility, Z87.81 - Personal history of (healed) traumatic fracture XR cervical spine w flex/ext Today M54.2 - Cervicalgia, Z87.81 - Personal history of (healed) traumatic fracture Comprehensive Met. Panel Today C61 - Malignant neoplasm of prostate, G60.8 - Other hereditary and idiopathic neuropathies, I10 - Essential (primary) hypertension, R73.09 - Other abnormal glucose Vitamin D 25-OH (D2 and D3) Today C61 - Malignant neoplasm of prostate, G60.8 - Other hereditary and idiopathic neuropathies, I10 - Essential (primary) hypertension, R73.09 - Other abnormal glucose Magnesium Today C61 - Malignant neoplasm of prostate, G60.8 - Other hereditary and idiopathic neuropathies, I10 - Essential (primary) hypertension, R73.09 - Other abnormal glucose CRP High Sensitivity Today C61 - Malignant neoplasm of prostate, G60.8 - Other hereditary and idiopathic neuropathies, I10 - Essential (primary) hypertension, R73.09 - Other abnormal glucose MR lumbar spine wo/w con Today C61 - Malignant neoplasm of prostate, M54.2 - Cervicalgia, M54.9 - Dorsalgia, unspecified, R20.2 - Paresthesia of skin, R26.9 - Unspecified abnormalities of gait and mobility, Z87.81 - Personal history of (healed) traumatic fracture Medications: New alprazolam 0.25 mg orally 1 tab 30 minutes prior to MRI, may repeat x's 2; 1 day 6 tabs 0RF Coding Level of Care Code Est Pt Level 4 (81512) Diagnoses Gait abnormality R26.9 Cervicalgia M54.2 Hyperreflexia R29.2 History of cervical fracture Z87.81 Bilateral leg paresthesia R20.2 Peripheral sensory-motor axonal polyneuropathy G60.8 Prostate cancer C61
[2024-07-06 13:34] VITALS: BP 142/82; PULSE 65; O2SAT 98
== END 2024-07-06 15:21 | disposition home or self-care (01) ==
PROVIDERS: PCP Physician Assistant; Visit Provider Nurse Practitioner Family
DX: R26.9 Unspecified abnormalities of gait and mobility (principal); M54.2 Cervicalgia; R29.2 Abnormal reflex; Z87.81 Personal history of (healed) traumatic fracture; R20.2 Paresthesia of skin; G60.8 Other hereditary and idiopathic neuropathies; C61 Malignant neoplasm of prostate
CPT/HCPCS: 99214

== ENCOUNTER 2024-07-06 13:22 | Outpatient (REF) | payer MEDICARE, SELFPAY ==
--- OUTSIDE RECORDS SUMMARY | 2024-07-06 15:45 | XMS_ITS | Encounter Summary ---
Author Organization [facility] Address [address] [place] [address] Care Team Providers Care Garland Machine Operator Name Role Phone Katy Fallon Primary Care Provider + Reason for Referral * Consultation (Routine) - Authorized Specialty Diagnoses / Procedures Referred By Contact Referred To Contact Physical Medicine and Rehabilitation Diagnoses Cervicalgia Katy Fallon PA 175 [facility] [place] [address] [place] [address] Phone: tel: fax: [facility] - [address] [address] Phone: tel: fax: Referral ID Status Reason Start Date Expiration Date Visits Requested Visits Authorized [id number] Authorized Specialty Services Required 06/29/2024 06/29/20[address] Mian Norman DX 12 visits Appointment 06/29/24 Reason for Visit * Reason Onset Date Comments Referral 06/29/2024 Dr. Mian vincent Encounter Details Date Type Department Care Team (Late st Contact Info) Description 06/29/2024 Telephone Internal Medicine - [place] [address] [phone] Katy Fallon PA [address] [address] Referral (Dr. Mian Norman) Social History Tobacco Use Types Packs/Day Years Used Date Smoking Tobacco: Never Smokeless Tobacco: Never Alcohol Use Standard Drinks/Week Comments Yes 0 [...] for your loved ones. For example, child welfare caseworker or elderly care for an older adult? [...] Recorded Sex Assigned at Not on file Legal Sex Male 1:43 PM EST Gender Identity Not on file Sexual Orientation Straight 06/29/2024 7: 09 AM EST documented as of this encounter Progress Notes * MARKUS Lafleur - 06/29/2024 2:53 PM EST Referral placed. Thank you. * Aminta Moses - 06/29/2024 12:50 PM EST Diagnosis code is M54.2 * Aminta Moses - 06/29/2024 11:59 AM EST Fior calling from [facility] requesting an insurance authorization Dr. Mian MECRADO [id number] DX 12 visits Appointment 06/29/24 Fior states she will call back with the diagnosis. Please pend the order for the provider servando albrechto we can process the insurance authorization documented in this encounter Plan of Treatment Upcoming Encounters Date Type Department Care Team (Latest Contact Info) Description 07/06/2024 3:41 PM EST Hospital Encounter Xray - [facility] [address] [place] [address] Other specified postprocedural states; Dorsalgia, unspecified; Paresthesia of skin 07/06/2024 3:41 PM EST Hospital Encounter Xray - [facility] [address] [place], [place] [phone] Cervicalgia; Personal history of (healed) traumatic fracture 12/02/2024 9:30 AM EDT Office Visit Internal Medicine - [place] 175 [facility] [address] [place] [address] Katy Fallon PA 175 [facility] 200 [place] [address] 01/18/2025 10:45 AM EDT Office Visit Nephrology - [facility] [address] [place], [place] [phone] Ed Buckner MD [address] [phone] Scheduled Referrals Name Type Priority Associated Diagnoses Order Schedule Ambulatory referral to Physical Medicine Rehab Outpatient Referral Routine Cervicalgia 1 Occurrences starting 06/29/2024 until 06/29/2025 documented as of this encounter Visit Diagnoses Diagnosis Cervicalgia- Primary Other specified postprocedural states Dorsalgia, unspecified Paresthesia of skin Cervicalgia Personal history of (healed) traumatic fracture documented in this encounter Additional Health Concerns Assessment Noted Time PHQ-9 Depression Total Score: 0 05/21/20 24 1:07 PM EST documented as of this encounter Care Teams Garland Machine Operator Relationship Specialty Start Date End Date Katy Fallon PA [address] [place] [address] PCP - General Primary Care 02/08/20 documented as of this encounter
--- OUTSIDE RECORDS SUMMARY | 2024-07-06 15:45 | XMS_ITS | Encounter Summary ---
Author Organization [facility] [place] [address] Care Team Providers Care Revenue Agent Name Role Phone Katy Fallon Primary Care Provider + Encounter Details Date Type Department Care Team (Latest Contact Info) Description 07/06/2024 3:40 PM EST Hospital Encounter Xray - [facility] [address] [place] [phone] Other specified postprocedural states Social History Tobacco Use Types Packs/Day Years [...] care for your loved ones. For example, early childhood or elderly care for an older adult? [...] AM EST documented as of this encounter Plan of Treatment Upcoming Encounters Date Type Department Care Team (Latest Contact Info) Description 07/06/2024 3:41 PM EST Hospital Encounter Xray - [facility] [address] [place] [phone] Other specified postprocedural states; Dorsalgia, unspecified; Paresthesia of skin 07/06/2024 3:41 PM EST Hospital Encounter Xray - [facility] [address] [place] [address] Cervicalgia; Personal history of (healed) traumatic fracture 12/02/2024 9:30 AM EDT Office Visit Internal Medicine - [place] 175 [facility] 200 [place] [address] Katy Fallon PA 175 [facility] [address] [place] [address] 01/18/2025 10:45 AM EDT Office Visit Nephrology - [facility] [address] [place] [address] Ed Buckner MD 35[address] [facility] [address] [place] [address] Pending Results Name Type Priority Associated Diagnoses Date /Time XR Lumbar Spine 4+ Views Imaging Routine Other specified postprocedural states 07/06/2024 3:42 PM EST Scheduled Orders Name Type Priority Associated Diagnoses Orde r Schedule XR Lumbar Spine 4+ Views Imaging Routine Other specified postprocedural states Once for 1 Occurrences starting 07/06/2024 until 07/06/2024 documented as of this encounter Visit Diagnoses Diagnosis Other specified postprocedural states Other specified postprocedural states Dorsalgia, unspecified Paresthesia of skin Cervicalgia Personal history of (healed) traumatic fracture documented in this encounter Additional Health Concerns Assessment Noted Time PHQ-9 Depression Total Score: 0 05/21/20 24 1:07 PM EST documented as of this encounter Care Teams Revenue Agent Relationship Specialty Start Date End Date Katy Fallon PA [address] [place] [address] PCP - General Primary Care 02/08/20 documented as of this encounter
--- OUTSIDE RECORDS SUMMARY | 2024-07-06 15:45 | XMS_ITS ---
Author [facility] [place] Address [address] [facility] [place] [address] Care Team Providers Care Utilization Management Rn Name Role Phone Redd Smallwood Primary Care Provider Jeanette Swan Unavailable [phone] Allergies No Known Allergies REASON FOR VISIT [...] 12/25/2023 Encounters Encounter Location Date Provider Diagnosis [facility] [address] [address] 12/25/2023 Jeanette Dos Santos Type 2 diabetes [...] Provider Name:Jeanette bill, 08/26/2024 09:00:00 AM, [address] [facility], [place], [address], Procedure Notes * Category Sub-Category Detail Notes [...] as necessary. Patient chooses, no pharmaceutical tx (08288) Keratoma Treatment Parring or Cutting o f Benign Hyperkeratotic Lesion(s) 40525 (2-4 Lesions) - The Benign hyperkeratotic lesions, as described above were pared, and/or cut utilizing a sterile #15 blade, tissue nippers, and/or dremel Progress Notes * Merlin GIORDANO ADOB: [birth year] (73 yo M)Acc No.[id number]:12/25/2023 Progress Note Patient:?Merlin Giordano Provider:?Jeanette Dos Santos DPM :1950???Age:73 Y???Sex:Male Rene e:12/25/2023 Address:[address] [place] [address] , [place], [id number] Pcp:Redd Smallwood Subjective: * Chief Complaints: * [...] as necessary. Patient chooses, no pharmaceutical tx (82869).?Keratoma Treatment:?Parring or Cutting of Benign Hyperkeratotic Lesion(s)?79353 (2-4 Lesions) - The Benign hyperkeratotic lesions, as described above were pared, and/or cut utilizing a sterile #15 blade, tissue nippers, and/or dremel.? * Procedure Codes:?16493 DEBRI DE NAIL, 6 OR MORE, Modifiers: XS 43732 TRIM SKIN LESIONS, 2 TO 4, Modifiers: XS * Follow Up:?4 Months * Images: * Sign off status: Completed true * Provider:Serina Dos Santos, DPM Date:?05/2023 Generated for Printi ng/Fanateg/eTransmitting on:?07/06/2024 03:44 PM EST History and Physical Notes * HPI [...]
--- OUTSIDE RECORDS SUMMARY | 2024-07-06 15:45 | XMS_ITS ---
Author Organization [facility] [place]ena [place] Address [address] [facility] [place] [address] Care Team Providers Care Kindergarten Tutor Name Role Phone Redd Smallwood Primary Care Provider Jeanette Swan Unavailable [phone] Allergies No Known Allergies REASON FOR VISIT [...] 08/14/2023 Encounters Encounter Location Date Provider Diagnosis [facility] [place] [address] [place] [address] 08/14/2023 Jeanette Dos Santos Type 2 diabetes [...] Provider Name:Jeanette bill, 08/26/2024 09:00:00 AM, [address] [facility], [place], [address], Procedure Notes * Category Sub-Category Detail Notes [...] as necessary. Patient chooses, no pharmaceutical tx (17555) Keratoma Treatment Parring or Cutting o f Benign Hyperkeratotic Lesion(s) 76786 (2-4 Lesions) - The Benign hyperkeratotic lesions, as described above were pared, and/or cut utilizing a sterile #15 blade, tissue nippers, and/or dremel Progress Notes * Merlin GIORDANO ADOB: [birth year] (73 yo M)Acc No.[id number]:08/14/2023 Progress Note Patient:?Merlin Giordano Provider:?Jeanette Dos Santos DPM :1950???Age:73 Y???Sex:Male Rene e:08/14/2023 Address:[address] [place] [address] , [place], [id number] Pcp:Redd Smallwood Subjective: * Chief Complaints: * [...] as necessary. Patient chooses, no pharmaceutical tx (56060).?Keratoma Treatment:?Parring or Cutting of Benign Hyperkeratotic Lesion(s)?11964 (2-4 Lesions) - The Benign hyperkeratotic lesions, as described above were pared, and/or cut utilizing a sterile #15 blade, tissue nippers, and/or dremel.? * Procedure Codes:?54283 DEBRI DE NAIL, 6 OR MORE, Modifiers: XS 92537 TRIM SKIN LESIONS, 2 TO 4, Modifiers: XS * Follow Up:?4 Months * Images: * Sign off status: Completed true * Provider:?Jeanette Dos Santos, TEX Date:? Generated for Holly jones/Quinn/Ellen on:?07/06/2024 03:45 PM EST History and Physical Notes * [...]
--- OUTSIDE RECORDS SUMMARY | 2024-07-06 15:45 | XMS_ITS | Patient Health Record ---
Author Organization [facility] Address [address] [facility] [place] [address] Care Team Providers Care Resident Engineer Name Role Phone Redd Smallwood Primary Care Provider Jeanette Swan Unavailable [phone] Allergies No Known Allergies Results Component Value [...] Redd Referring Provider Last Name Cl [facility] Referred Provider Jeanette Dos Santos Referred Address [address] [facility],[place],[address], Referred Provider Specialty Podiatry Referral Priority Routine [...] Problem Acquired hammer toe of right foot (014159060961 9105) Other hammer toe(s) (acquired), right foot (M20.41) Active confirmed Problem Acquired hammer toe of left foot (846448254621 9103) Other hammer toe(s) (acquired), left foot (M20.42) Active confirmed Problem [id number] 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.42) Active confirmed Problem [id number] Raynaud's diseas e without gangrene (I73.00) Active confirmed Vital Signs Height 5 ft 11 in in 04/26/2024 Weight 220 lbs 04/26/2024 BMI 30.68 kg/m2 04/26/2024 Encounters Encounter Location Date Provider Diagnosis [address] [address] 08/14/2023 Jeanette Dos Santos Type 2 diabetes mellitus with polyneuropathy E11.42 and Tinea unguium B35.[address] [place] [address] 12/25/2023 Jeanette Dos Santos Type 2 diabetes mellitus with polyneuropathy E11.42 and Tinea unguium B35.[address] [address] 04/26/2024 Jeanette Dos Santos Type 2 diabetes [...] Carr Adolfo landy, 08/26/2024 09:00:00 AM, [address] [place], [address], Insurance Providers Payer Name Payer Address Payer Phone Subscriber Number Group Number Insured Name Patient Relationship to Insured Coverage Start Date Coverage End Date [employer] Preferred [address] [place] [address] [phone] [id number] Merlin Samaniego Self - patient is the insured Medical (General) History Medical History History ICD Code Back,Hip,and Knee pain Broken bones CAD (Cholesterol) type II diabetes Measles Chicken pox Joint implants/screws Numbness thyroid Prostate cancer Surgical History Surgery Date(Month/Year) neck surgery,back,ribs 06/2021
--- OUTSIDE RECORDS SUMMARY | 2024-07-06 15:45 | XMS_ITS ---
[facility] Address [address] [place] [address] Care Team Providers Care Process Control Tech Name Role Phone Redd Smallwood Primary Care Provider Jeanette Swan Unavailable [phone] Allergies No Known Allergies REASON FOR VISIT [...] 04/26/2024 Encounters Encounter Location Date Provider Diagnosis [facility] [address] [place] [address] 04/26/2024 Jeanette Dos Santos Type 2 diabetes [...] Provider Name:Jeanette bill, 08/26/2024 09:00:00 AM, [address] [facility], [place], [address], Procedure Notes * Category Sub-Category Detail Notes [...] use of a nail nipper and/or dremel-type organ grinder, to a more viable healthy nail [...] to maintain effectiveness in symptomatic relief - 57710 Keratoma Treatment Parring or Cutting o f Benign Hyperkeratotic Lesion(s) (-56) 2-4 Lesions - The Benign hyperkeratotic lesions, ( 4) in total, locations as stated and described in exam, were pared, and/or cut utilizing a sterile 15 blade, tissue nippers, and/or power [employer] instrumentation - 51483 Progress Notes * ALFREDOMerlin PLATA ADOB: [birth year] (74 yo M)Acc No.[id number]:04/26/2024 Progress Note Patient:?Merlin GIORDANO Provider:?Jeanette Dos Santos DPM :1950???Age:74 Y???Sex:Male Rene e:04/26/2024 Address:[address] [place] [address] [id number] Pcp:Redd Smallwood Subjective: * Chief Complaints: * [...] stocking fashion, no fissure(s) present, B/L.?Vascular: ?DP PULSES (B):? 2/4, B/L.?PT PULSES (B):? 2/4, B/L.?CAPILLARY FILL TIME:? delayed, all digits, B/L.?TROPHIC CONDITION-TEXTURE/ELASTICITY/TURGOR/HAIR GROWTH (B):? sparce hair growth decreased, B/L dystrophic (thin,shiny).?TEMPERTURE GRADIENT (C):? decreased, cool to cold, proximal to distal, B/L.?PIGMENTATION:? rubrous Forefoot B/L.?EDEMA (C):? 1/ B/L.?General Examination: ?FOOT EXAM:?Footwear Evaluation?Orthopedic: ?FOOTWEAR:?fair condition.? Assessment: * Assessment: 1.?Xerosis of skin - [...] use of a nail nipper and/or dremel-type organ grinder, to a more viable healthy nail [...] to maintain effectiveness in symptomatic relief - 33752.?Keratoma Treatment:?Parring or Cutting of Benign Hyperkeratotic Lesion(s)?(-56) 2-4 Lesions - The Benign hyperkeratotic lesions, ( 4) in total, locations as stated and described in exam, were pared, and/or cut utilizing a sterile 15 blade, tissue nippers, and/or power dremel instrumentation - 33658.? * Procedure Codes:?33617 DEBRI DE NAIL, 6 OR MORE, Modifiers: XS 49838 TRIM SKIN LESIONS, 2 TO 4, Modifiers: [...] their pharmacy at the time of visit.? ??Screening/Special Tests:?Fall Risk?Assessment:?Performed ?Screening:?No falls in the past year ?FALLS: Screening for Future Fall Risk?Have you had two or more falls in the past year??No ?Have you had any falls with injury in the past year??No * Follow Up:?4 Months * Images: * Sign off status: Completed true * Provider:?Jeanette Dos Santos, DPM Date:?06/2023 Generated for Holly jones/Quinn/eTlatoyasmitting on:?07/06/2024 03:44 PM EST History and Physical [...] a stocking fashion, no fissure(s) present, B/L Orthopedic FOOTWEAR: fair condition General Examination FOOT EXAM: Lower Extrem ity Neurological Exam performed:: Yes Visual exam of foot performed:: Yes Date: 04/26/2024 Footwear Evaluation Footwear Evaluation performe d:: Yes Ophthalmology Referral DIABETES EYE EXAM Procedure Perform ed:: Yes ?Date of Exam Performed: 08/25/2023 Findings [...]
--- OUTSIDE RECORDS SUMMARY | 2024-07-06 15:45 | XMS_ITS | Encounter Summary ---
Author Organization [facility] [place] [address] Care Team Providers Care Leather Stamper Name Role Phone Katy Fallon Primary Care Provider + Encounter Details Date Type Department Care Team (Latest Contact Info) Description 07/06/2024 3:41 PM EST Hospital Encounter Xray - [facility] [address] [place] [phone] Other specified postprocedural states; Dorsalgia, unspecified; Paresthesia of skin Social History Tobacco Use Types Packs/Day Years [...] care for your loved ones. For example, children's minister or elderly care for an older adult? [...] Hospital Encounter Xray - [facility] [address] [place], [place] [phone] Cervicalgia; Personal history of (healed) traumatic fracture 12/02/2024 9:30 AM EDT Office Visit Internal Medicine - [place] [address] [facility] [address] [place] [phone] Katy Fallon PA [address] [place] [address] 01/18/2025 10:45 AM EDT Office Visit Nephrology - [facility] [address] [place] [address] Ed Buckner MD [address] [facility] [address] [place] [address] Pending Results Name Type Priority Associated Diagnoses Date /Time XR Thoracic Spine 2 Views Imaging Routine Other specified postprocedural states Dorsalgia, unspecified Paresthesia of skin 07/06/2024 3:43 PM EST Scheduled Orders Name Type Priority Associated Diagnoses Orde r Schedule XR Thoracic Spine 2 Views Imaging Routine Other specified postprocedural states Dorsalgia, unspecified Paresthesia of skin Once for 1 Occurrences starting 07/06/2024 until 07/06/2024 documented as of this encounter Visit Diagnoses Diagnosis Other specified postprocedural states Dorsalgia, unspecified Paresthesia of skin Cervicalgia Personal history of (healed) traumatic fracture documented in this encounter Additional Health Concerns Assessment Noted Time PHQ-9 Depression Total Score: 0 05/21/20 24 1:07 PM EST documented as of this encounter Care Teams Leather Stamper Relationship Specialty Start Date End Date Katy Fallon PA [address] [place] [address] PCP - General Primary Care 02/08/20 documented as of this encounter
--- OUTSIDE RECORDS SUMMARY | 2024-07-06 15:45 | XMS_ITS | Clinical Summary ---
Author Organization [facility] Address [address] [place] [address] Phone Care Team Providers Care Glove Cuffer Name Role Phone Katy Fallon Primary Care Provider + Allergies No known active allergies Medications levothyroxine (SYNTHROID, LEVOTHROID) 125 mcg tablet TAKE 1 TABLET BY MOUTH DAILY 6 DAYS PER WEEK. SKIP ON SEVENTH DAY. 01/29/20 24 Active cholecalcifero l (VITAMIN D-3) 50 mcg (2,000 unit) capsule Take 1 Capsule by mouth every morning. Active magnesium 250 mg tablet Take 1 mcg by mouth daily. Active FREESTYLE LANCETS MISC Use bid and prn Dx:E11.22 09/01/19 19 Active cyanocobalamin (VITAMIN B-12) 1,000 mcg tablet Take 1 Tablet by mouth daily. 02/27/20 18 Active blood-glucose meter kit Dx: E11.22 09/01/19 19 Active baclofen (LIORESAL) 10 mg tablet Take 1 tablet (10 mg total) by mouth 3 (three) times a day. 270 tablet 1 04/28/20 24 Active gabapentin (NEURONTIN) 300 mg capsule Take 1 capsule (300 mg total) by mouth 4 (four) times a day. 120 capsule 3 05/10/20 24 Active Trulicity 1.5 mg/0.5 mL pen injector injection Inject 0.5 mL (1.5 mg total) under the skin 1 (one) time per week. 04/21/20 24 Active atorvastatin (LIPITOR) 10 mg tablet TAKE 1 TABLET BY MOUTH EVERY DAY IN THE EVENING 90 tablet 3 06/09/19 25 Active lisinopriL (PRINIVIL,ZEST RIL) 5 mg tablet Take 1 tablet (5 mg total) by mouth 1 (one) time each day. 90 tablet 1 06/09/19 25 Active metFORMIN (GLUCOPHAGE) 1,000 mg tablet Take 1 tablet (1,000 mg total) by mouth 2 (two) times a day with meals. 180 tablet 3 06/23/19 25 Active lisinopriL (PRINIVIL,ZEST RIL) 5 mg tablet TAKE 1 TABLET BY MOUTH EVERY DAY 12/01/19 24 025 Discontinued(Re order) metFORMIN (GLUCOPHAGE) 1,000 mg tablet Take 1 Tablet by mouth 2 times daily (with meals). 11/03/19 24 025 Discontinued(Re order) atorvastatin (LIPITOR) 10 mg tablet Take 1 Tablet by mouth every evening. 04/07/20 025 Discontinued Active Problems Problem Noted Date Diagnosed Date [...] Encounters Date Type Department Care Team Description 07/06/2024 3:41 PM [facility] Hospital Encounter Xray - [facility] [address] [place] [address] Cervicalgia; Personal history of (healed) traumatic fracture 07/06/2024 3:41 PM [facility] Hospital Encounter Xray - [facility] [address] [place] [address] Other specified postprocedural states; Dorsalgia, unspecified; Paresthesia of skin 07/06/2024 3:40 PM EST Hospital Encounter Xray - [facility] [address] [place] [address] Other specified postprocedural states 06/29/2024 Telephone Internal Medicine - [place] [address] [facility] [address] [place] [address] Katy Fallon PA Referral (Dr. Mian Norman) 05/28/2024 2:30 PM EST Office Visit Internal Medicine [facility] [address] [facility] [address] [place] [address] Katy Fallon PA Routine physical examination (Primary Dx); Type 2 diabetes mellitus with stage 3a chronic kidney disease, without long-term current use of insulin ([facility]); Primary hypertension; Pure hypercholesterolemia; Hypothyroidism, unspecified type from Last 3 Months Immunizations Name Administration Dates Next Due H1N1 Inj Preservative Free 06/08/2009 Influenza trivalent, 0.5mL ( Fluad) 65yo and older 03/12/2024,02/05/2022,02/19/2021,01/25,03/08/2019,01/24/2018 Influenza, Unspecified 02/19/2021 Simpli.fi SARS-CoV-2 COVID-19, mRNA, LNP-S, preservative free 08/23/2021 Pneumococcal conjugate 13 va lent (Prevnar 13, PCV13) 2mo and older 08/06/2019 Pneumococcal polysaccharide 23 valent (Pneumovax 23) 2yo and older 03/08/2022,07/18/2005 Tdap Tetanus diptheria acell ular pertussis (Boostrix; Adacel) 7yo and older 07/04/2021,01/22/2007 Zoster Live 08/24/2019 Zoster recombinant (Shingrix ) 19yo and older 07/04/2019,12/22/2018 Surgical History Surgery Date Site/Laterality Comments VASECTOMY PROCEDURE: WI VASECTOMY UNI/BI SPX W/POSTOP SEMEN EXAMS TONSILLECTOMY PROCEDURE: HISTORICAL TONSILLECTOMY COLONOSCOPY 03/21/2016 PROCEDURE: HISTORICAL COLONOSCOPY; COMMENT: polyp = tubular adenoma - repeat 3 years - Dr. Farah Medical History Medical History Date Comments Onychomycosis 05/05/2017 DX:Onychomycosis Diabetic neuropathy ([facility]) 05/17/2017 DX :Diabetic neuropathy ([facility]) CKD (chronic kidney disease) stage 3, GFR 30-59 ml/min ([facility]) 05/17/2017 DX:CKD (chronic kidney dise ase) stage 3, GFR 30-59 ml/min ([facility]) DM (diabetes mellitus), type 2 with renal complications ([facility]) 05/17/2017 DX:DM (diabetes mellitus ), type 2 with renal complications ([facility]) Hypertension 05/17/2017 DX:Hypertension Hyperlipidemia 05/17/2017 DX:Hyperlipidemi a AAA (abdominal aortic aneury sm) ([facility]) 05/17/2017 DX:AAA (abdominal aortic ane urysm) ([facility]) Hypothyroidism 05/17/2017 DX:Hypothyroidis m Obesity 01/15/2018 DX:Obesity Sciatica 11/17/2012 DX:Sciatica Decreased hearing, bilateral 02/26/2018 DX: Decreased hearing, bilateral Anxiety 08/29/2017 DX:Anxiety Nocturnal leg cramps DX:Nocturna l leg cramps Nocturia DX:Nocturia Tubular adenoma of colon 05/17/2017 DX:Tubu lar adenoma of colon Prostate cancer ([facility]) 02/04/2023 DX:Pro state cancer ([facility]) Family History Medical History Relation Name Comments [...] care for your loved ones. For example, director of child welfare services or elderly care for an older adult? [...] Orientation Straight 06/29/2024 7: 09 AM EST Obstetrics History Last Filed Vital Signs Vital [...] EST [facility] [address] [facility] [place], [place] [phone] Other specified postprocedural states; Dorsalgia, unspecified; Paresthesia of skin 07/06/2024 3:41 PM EST Hospital Encounter Xray - [facility] [address] [facility] [place], [place] [phone] Cervicalgia; Personal history of (healed) traumatic fracture 12/02/2024 9:30 AM EDT Office Visit Internal Medicine - [place] [address] [facility] [address] [place] [phone] Katy Fallon PA [address] [facility] [address] [place] [address] 01/18/2025 10:45 AM EDT Office Visit Nephrology - [address] [phone] Ed Buckner MD [address] [place] [phone] Health Maintenance Due Date Last Done Comments [...] Vaccines Completed 08/24/2019, 01/2020, 12/22/2018 Pneumococcal Vaccine: 50+ Years Completed 03/08/2022, 08/06/2019, 07/18/2005 COVID-19 Vaccine [...] patient's age to complete this topic Meningococcal B Vacine Aged Out No lo nger eligible based on patient's age to complete [...] mg/dL LAB CHEMISTRY METHOD 05/13/2024 3:58 PM EST [facility] Microalb, Ur 14.0 0.0 - 29.0 mg/L LAB CHEMISTRY METHOD 05/13/2024 3:58 PM EST [facility] Microalb/Creat Ratio 9 <30 mg/g creat LAB CHEMISTRY METHOD 05/13/2024 3:58 PM EST [facility] Urine Urine specimen obtained by clean catch procedure / Unknown Non-blood Collection / Unknown 05/13/2024 10:43 AM EST 05/13/2024 10:43 AM EST us Katy APARICIO LAB URINE ORDERABLES Fin al Result [facility] [address] [place] [address], * Lipid panel with reflex to direct LDL (05/13/2024 10:35 AM EST) Cholesterol 139 0 - 200 mg/dL LAB CHEMISTRY METHOD 05/13/2024 3:33 PM EST [facility] Triglycerides 90 0 - 150 mg/dL LAB CHEMISTRY METHOD 05/13/2024 3:33 PM EST [facility] HDL 61 >=40 mg/dL LAB CHEMISTRY METHOD 05/13/2024 3:33 PM EST [facility] LDL Calculated 60 0 - 100 mg/dL LAB CHEMISTRY METHOD 05/13/2024 3:33 PM EST [facility] VLDL Cholesterol Pablo 18 mg/dL LAB CHEMISTRY METHOD 05/13/2024 3:33 PM EST [facility] Non HDL Chol. (LDL+VLDL) 78 <145 mg/dL LAB CHEMISTRY METHOD 05/13/2024 3:33 PM EST [facility] Chol/HDL Ratio 2.3 0.0 - 4.4 LAB CHEMISTRY METHOD 05/13/2024 3:33 PM [facility] Blood Venous blood specimen / Unknown Venipuncture / Unknown 05/13/2024 10:35 AM EST 05/13/2024 10:40 AM EST Katy APARICIO LAB BLOOD ORDERABLES Fin al Result [facility] [address] [place] [address], [place] [phone] * (ABNORMAL) CBC auto differential (05/13/2024 10:35 AM EST) WBC 5.6 4.8 - 10.8 K/mcL LAB HEMETOLOGY METHOD 05/13/2024 12:19 PM EST [facility] RBC 4.20(L) 4.50 - 5.50 M/mcL LAB HEMETOLOGY METHOD 05/13/2024 12:19 PM [facility] Hemoglobin 13.0(L) 13.5 - 17.5 g/dL LAB HEMETOLOGY METHOD 05/13/2024 12:19 PM [facility] Hematocrit 40.4(L) 42.0 - 54.0 % LAB HEMETOLOGY METHOD 05/13/2024 12:19 PM [facility] MCV 95.5 79.0 - 98.0 FL LAB HEMETOLOGY METHOD 05/13/2024 12:19 PM [facility] MCH 30.7 27.0 - 32.0 pcg LAB HEMETOLOGY METHOD 05/13/2024 12:19 PM [facility] MCHC 32.2 32.0 - 37.0 g/dL LAB HEMETOLOGY METHOD 05/13/2024 12:19 PM [facility] RDW 12.7 11.0 - 15.0 % LAB HEMETOLOGY METHOD 05/13/2024 12:19 PM [facility] Platelets 185 130 - 400 K/mcL LAB HEMETOLOGY METHOD 05/13/2024 12:19 PM [facility] MPV 10.2 7.0 - 11.0 FL LAB HEMETOLOGY METHOD 05/13/2024 12:19 PM [facility] NRBC 0.0 <1.0 % LAB HEMETOLOGY METHOD 05/13/2024 12:19 PM [facility] NRBC Absolute 0.00 <0.10 K/mcL LAB HEMETOLOGY METHOD 05/13/2024 12:19 PM [facility] Neutrophils Relative 68.9 % LAB HEMETOLOGY METHOD 05/13/2024 12:19 PM [facility] Lymphocytes Relative 22.0 % LAB HEMETOLOGY METHOD 05/13/2024 12:19 PM [facility] Monocytes Relative 5.8 % LAB HEMETOLOGY METHOD 05/13/2024 12:19 PM [facility] Eosinophils Relative 2.2 % LAB HEMETOLOGY METHOD 05/13/2024 12:19 PM [facility] Basophils Relative 0.7 % LAB HEMETOLOGY METHOD 05/13/2024 12:19 PM [facility] Immature Granulocytes Relative 0.4 % LAB HEMETOLOGY METHOD 05/13/2024 12:19 PM [facility] Neutrophils Absolute 3.83 1.50 - 7.00 K/mcL LAB HEMETOLOGY METHOD 05/13/2024 12:19 PM [facility] Lymphocytes Absolute 1.22 1.00 - 5.00 K/mcL LAB HEMETOLOGY METHOD 05/13/2024 12:19 PM [facility] Monocytes Absolute 0.32 0.20 - 1.00 K/mcL LAB HEMETOLOGY METHOD 05/13/2024 12:19 PM [facility] Eosinophils Absolute 0.12 0.00 - 0.50 K/mcL LAB HEMETOLOGY METHOD 05/13/2024 12:19 PM [facility] Basophils Absolute 0.04 0.00 - 0.20 K/mcL LAB HEMETOLOGY METHOD 05/13/2024 12:19 PM [facility] Immature Granulocytes Absolute 0.02 0.00 - 0.03 K/mcL LAB HEMETOLOGY METHOD 05/13/2024 12:19 PM [facility] Blood Venous blood specimen / Unknown Venipuncture / Unknown 05/13/2024 10:35 AM EST 05/13/2024 10:40 AM EST us Katy APARICIO LAB BLOOD ORDERABLES Fin al Result [facility] [address] [place] [address], [place] [phone] * Vitamin D 25 hydroxy (05/13/2024 10:35 AM EST) [facility] Vit D, 25-Hydroxy 42.1 30.0 - 80.0 ng/mL LAB CHEMISTRY METHOD 05/13/2024 3:39 PM EST [facility] Blood Venous blood specimen / Unknown Venipuncture / Unknown 05/13/2024 10:35 AM EST 05/13/2024 10:40 AM EST Katy APARICIO LAB BLOOD ORDERABLES Fin al Result [facility] [address] [place] [address], [place] [phone] * Thyroid stimulating hormone (05/13/2024 10:35 AM EST) [facility] TSH 1.18 0.40 - 4.00 mcIU/mL LAB CHEMISTRY METHOD 05/13/2024 3:39 PM EST [facility] Blood Venous blood specimen / Unknown Venipuncture / Unknown 05/13/2024 10:35 AM EST 05/13/2024 10:40 AM EST us Katy APARICIO LAB BLOOD ORDERABLES Fin al Result [facility] [address] [place] [address], [place] [phone] * (ABNORMAL) Magnesium (05/13/2024 10:35 AM EST) [facility] Magnesium 1.8(L) 1.9 - 2.6 mg/dL LAB CHEMISTRY METHOD 05/13/2024 3:31 PM EST [facility] Blood Venous blood specimen / Unknown Venipuncture / Unknown 05/13/2024 10:35 AM EST 05/13/2024 10:40 AM EST Katy APARICIO LAB BLOOD ORDERABLES Fin al Result Performing Organization Address City/[facility]/ZIP Co de Phone Number [facility] [address] [place] [address], [place] [phone] * (ABNORMAL) Hemoglobin A1c (05/13/2024 10:35 AM EST) Hemoglobin A1C 6.9(H) <6.5 % LAB CHEMISTRY METHOD 05/13/2024 8:55 PM EST [facility] Mean Bld Glu Estim. 151 mg/dL LAB CHEMISTRY METHOD 05/13/2024 8:55 PM [facility] Blood Venous blood specimen / Unknown Venipuncture / Unknown 05/13/2024 10:35 AM EST 05/13/2024 10:40 AM EST Katy APARICIO LAB BLOOD ORDERABLES Fin al Result [facility] [address] [place] [address], [place] [phone] * (ABNORMAL) Comprehensive metabolic panel (05/13/2024 10:35 AM EST) Pathologist [facility] Sodium 142 133 - 145 mmol/L LAB CHEMISTRY METHOD 05/13/2024 3:33 PM [facility] Potassium 4.3 3.5 - 5.5 mmol/L LAB CHEMISTRY METHOD 05/13/2024 3:33 PM [facility] Chloride 108 96 - 110 mmol/L LAB CHEMISTRY METHOD 05/13/2024 3:33 PM [facility] CO2 28 21 - 32 mmol/L LAB CHEMISTRY METHOD 05/13/2024 3:33 PM [facility] Anion Gap 6 3 - 11 LAB CHEMISTRY METHOD 05/13/2024 3:33 PM [facility] Glucose 154(H) 70 - 100 mg/dL LAB CHEMISTRY METHOD 05/13/2024 3:33 PM [facility] BUN 22 5 - 25 mg/dL LAB CHEMISTRY METHOD 05/13/2024 3:33 PM [facility] Creatinine 1.46(H) 0.70 - 1.30 mg/dL LAB CHEMISTRY METHOD 05/13/2024 3:33 PM [facility] eGFR 50(L) >=60 mL/min/1. 73m2 LAB CHEMISTRY METHOD 05/13/2024 3:33 PM [facility] Comment:Calculation based on the??Chronic Kidney Disease Epidemiology Collaboration (CKD-EPI) equation refit??without adjustment for race. BUN/Creatinine Ratio 15.1 LAB CHEMISTRY METHOD 05/13/2024 3:33 PM [facility] Calcium 9.5 8.5 - 10.5 mg/dL LAB CHEMISTRY METHOD 05/13/2024 3:33 PM [facility] AST (SGOT) 21 10 - 42 unit/L LAB CHEMISTRY METHOD 05/13/2024 3:33 PM [facility] ALT (SGPT) 20 10 - 60 unit/L LAB CHEMISTRY METHOD 05/13/2024 3:33 PM [facility] Alkaline Phosphatase 78 42 - 121 unit/L LAB CHEMISTRY METHOD 05/13/2024 3:33 PM [facility] Total Protein 6.9 6.0 - 8.0 g/dL LAB CHEMISTRY METHOD 05/13/2024 3:33 PM [facility] Albumin 4.0 3.2 - 5.0 g/dL LAB CHEMISTRY METHOD 05/13/2024 3:33 PM [facility] Total Bilirubin 0.6 0.0 - 1.4 mg/dL LAB CHEMISTRY METHOD 05/13/2024 3:33 PM [facility] Blood Venous blood specimen / Unknown Venipuncture / Unknown 05/13/2024 10:35 AM EST 05/13/2024 10:40 AM EST Katy APARICIO LAB BLOOD ORDERABLES Fin al Result [facility] (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
--- OUTSIDE RECORDS SUMMARY | 2024-07-06 15:45 | XMS_ITS | Encounter Summary ---
Author Organization [facility] [place] [address] Care Team Providers Care Customer Service Assistant Name Role Phone Katy Fallon Primary Care Provider + Encounter Details Date Type Department Care Team (Latest Contact Info) Description 07/06/2024 3:41 PM EST Hospital Encounter Xray - [facility] [address] [place] [phone] Cervicalgia; Personal history of (healed) traumatic fracture Social History Tobacco Use Types Packs/Day Years [...] for your loved ones. For example, child care education coordinator or elderly care for an older adult? [...] Hospital Encounter Xray - [facility] [address] [place] [address] Other specified postprocedural states; Dorsalgia, unspecified; Paresthesia of skin 12/02/2024 9:30 AM EDT Office Visit Internal Medicine - [place] [address] [facility] [address] [place] [address] Katy Fallon PA [address] [place] [address] 01/18/2025 10:45 AM EDT Office Visit Nephrology - [facility] [address] [place] [address] Ed Buckner MD [address] [facility] [address] [place] [address] Pending Results Name Type Priority Associated Diagnoses Date /Time XR Cervical Spine 6+ Views Imaging Routine Cervicalgia Personal history of (healed) traumatic fracture 07/06/2024 3:43 PM EST Scheduled Orders Name Type Priority Associated Diagnoses Orde r Schedule XR Cervical Spine 6+ Views Imaging Routine Cervicalgia Personal history of (healed) traumatic fracture Once for 1 Occurrences starting 07/06/2024 until 07/06/2024 documented as of this encounter Visit Diagnoses Diagnosis Other specified postprocedural states Dorsalgia, unspecified Paresthesia of skin Cervicalgia Personal history of (healed) traumatic fracture documented in this encounter Additional Health Concerns Assessment Noted Time PHQ-9 Depression Total Score: 0 05/21/20 24 1:07 PM EST documented as of this encounter Care Teams Customer Service Assistant Relationship Specialty Start Date End Date Katy Fallon PA [address] [place] [address] PCP - General Primary Care 02/08/20 documented as of this encounter
[2024-07-06 18:15] LABS: MANUAL DIFF FLAG NO
[2024-07-06 18:47] LABS: Basophils Absolute Auto 0.1 X10*3/uL (0.0-0.2); Basophils Percent Auto 0.8 % (0-2); Eosinophils Absolute Auto 0.1 X10*3/uL (0.0-0.4); Eosinophils Percent Auto 1.7 % (0-4); Hematocrit 40.8 % (42.0-52.0); Hemoglobin 13.4 g/dl (14.0-18.0); Imm Gran Abs Auto 0.02 X10*3/uL (0.00-0.03); Imm Gran Pct Auto 0.3 % (0.0-0.4); Lymphocytes Absolute Auto 1.1 X10*3/uL (1.2-4.9); Lymphocytes Percent Auto 16.6 % (20-40); Mean Corpuscular HGB Conc 32.8 g/dl (31.0-36.0); Mean Corpuscular Volume 94.4 fL (80.0-98.0); Mean Platelet Volume 10.6 fL (9.4-12.4); Monocytes Absolute Auto 0.4 X10*3/uL (0.1-1.2); Monocytes Percent Auto 6.8 % (2-11); Neutrophils Absolute Auto 4.7 x10*3/uL (2.0-8.3); Neutrophils Percent Auto 73.8 % (45-73); Platelet Count 174 X10*3/uL (160-400); Red Blood Count 4.32 X10*6/uL (4.60-5.80); Red Cell Distribution Width 12.8 % (11.0-16.0); White Blood Count 6.3 X10*3/uL (4.8-10.8)
[2024-07-06 18:51] LABS: Alanine Aminotransferase 19 U/L (0-40); Alkaline Phosphatase 64 U/L (39-117); Anion Gap 11 (12-20); Aspartate Amino Transferase 24 U/L (5-37); Bilirubin Total 0.4 mg/dL (0.0-1.0); Blood Urea Nitrogen 24 mg/dL (9-16); Calcium 9.2 mg/dL (8.4-10.2); Carbon Dioxide 24 mmol/L (22-29); Chloride 111 mmol/L (96-108); Estimated Glomerular Filt Rate 49; Glucose Random 136 mg/dL (60-115); Magnesium 1.9 mg/dL (1.6-2.6); Potassium 4.5 mmol/L (3.3-5.1); Sodium 141 mmol/L (135-145); Total Protein 7.1 g/dL (6.5-8.0)
[2024-07-06 18:56] LABS: TSH reflex Free T4 1.03 uIU/mL (0.32-4.0)
[2024-07-06 19:12] LABS: Vitamin B12 1541 pg/mL (200-900)
[2024-07-06 19:35] LABS: Erythrocyte Sedimentation Rate 5 MM/HR (0-15)
[2024-07-07 05:18] LABS: Estimated Average Glucose 146 mg/dL; Hemoglobin A1C 171.5597 umol/L; Hemoglobin A1c % 6.7 % (<6.0)
[2024-07-08 00:49] LABS: CRP High Sensitivity 0.2 mg/L
[2024-07-08 02:49] LABS: Lyme Abs Screen <0.90 index
[2024-07-11 14:44] LABS: Vitamin D 25-OH, D2 <4 ng/mL; Vitamin D 25-OH, D3 36 ng/mL; Vitamin D 25-OH, Total 36 ng/mL (30-100)
[2024-07-12 15:14] LABS: Vitamin B1 13 nmol/L (8-30)
[2024-07-14 15:13] LABS: Vitamin B6 5.8 ng/mL (2.1-21.7)
== END 2024-07-06 13:23 | disposition home or self-care (01) ==
LOC: HO.HKASLDS 13:22
PROVIDERS: PCP Physician Assistant; Visit Provider Nurse Practitioner Family
DX: C61 Malignant neoplasm of prostate (principal); R73.09 Other abnormal glucose; G60.8 Other hereditary and idiopathic neuropathies; I10 Essential (primary) hypertension; R26.9 Unspecified abnormalities of gait and mobility; M54.2 Cervicalgia; R29.2 Abnormal reflex; R20.2 Paresthesia of skin; Z87.81 Personal history of (healed) traumatic fracture
CPT/HCPCS: 36415; 80053; 82306; 82607; 82746; 83036; 83735; 84207; 84425; 84443; 85025; 85652; 86141; 86617; 86618; 99212

== ENCOUNTER 2024-11-29 07:52 | Outpatient (AMB) | payer OTHER, SELFPAY ==
--- OUTSIDE RECORDS SUMMARY | 2024-08-26 05:00 | XMS_ITS ---
Author Organization [facility] Address [address] [place] [address] [place] [address] Care Team Providers Care String Cutter Name Role Phone Redd Smallwood Primary Care Provider Jeanette Swan Unavailable [phone] Encounters Encounter Location Date Provider Diagnosis [address] [address] 08/26/2024 Jeanette Dos Santos Plan Of Treatment Next Appt Details Provider Name:Jeanette bill, 03/21/2025 10:00:00 AM, [address] [place] [address], [phone], Progress Notes * Merlin GIORDANO ADOB: [birth year] (74 yo M)Acc No.[id number]:08/26/2024 Progress Note Patient: Merlin SEVILLA Lilly Provider: Monica Dos Santos DPM :1950 A ge:74 Y S ex:Male Date:08/26/2024 Address:[address] [place] [address] [id number] Pcp:Redd Smallwood Subjective: * Chief Complaints: * * Medical History: Objective: * Vitals: Assessment: Plan: * Treatment: * Images: * The named appointment provid er may or may not be the originator of this progress note, and it is not deemed complete until electronically signed by the appointment provider. Sign off status: Pending * Provider: Monica Dos Santos DPM Date: 0 08/26/2024 Generated for Holly jones/Quinn/Ellen on: 0 11/29/2024 07:55 AM EDT
--- OUTSIDE RECORDS SUMMARY | 2024-11-29 07:55 | XMS_ITS ---
Author Name [facility] Organization Unknown Encounters Encounter Type Encounter Reason Primary Diagnosis Location Date Ambulatory [facility] 11/02/2024 Care Team Organization Name Specialty Phone Email Start Date End Da te [facility] JAG Resourcing Advisor 11/05/2024 [facility] seng luis Primary Care 09/03/2024
--- OUTSIDE RECORDS SUMMARY | 2024-11-29 07:55 | XMS_ITS | Clinical Summary ---
Author Organization [facility] Address [address] [place] [address] Care Team Providers Care Emissions Testing Technician Name Role Phone Redd Smallwood MD PhD Primary Care Provider Encounters Date Type Department Care Team Description 09/21/2024 Scanned [address] [place] [phone] Radiology, Scan from Last 3 Months Social History Tobacco Use Types Packs/Day Years Used Date Smoking Tobacco: Never Assessed Sex and Gender Information Value Date Recorded Sex Assigned at Male 09/03/2024 8:59 AM EDT Legal Sex Male 8:19 AM EDT Gender Identity Not on file Sexual Orientation Not on file Plan of Treatment Health Maintenance Due Date Last Done Comments Hepatitis C Virus Screening 1950 COVID-19 Vaccine (#1) 1953 DTaP/Tdap/Td Vaccines (1 - Tdap) 1967 Pneumococcal Vaccines 50+ (1 of 2 - PCV) 1967 Zoster (Shingles) Vaccine (1 of 2) 1967 RSV Vaccine 60 years and old er and Patients (1 - 1-dose 75+ series) 2023 Influenza Vaccine 12/24/2024 Hepatitis B Vaccines Aged Out No long er eligible based on patient's age to complete this topic Procedures Procedure Name Priority Date/Time Associated Diagnosis Comments HX OUTSIDE ORDER 11/02/2024 HX OUTSIDE ORDER 09/21/2024 from Last 3 Months Results * OUTSIDE ORDER (11/02/2024) Only the most recent of2 resultswithin the time period is included. us Scan Neurology HX AMB PROCEDURES Final Result from Last 3 [place] [id number] [employer] Care Teams Emissions Testing Technician Relationship Specialty Start Date End Date Redd Smallwood MD PhD [address] [place] [address] [place] [id number] PCP - General Internal Medicine 09/03/24
--- OUTSIDE RECORDS SUMMARY | 2024-11-29 07:55 | XMS_ITS | Clinical Summary ---
Author Organization [facility] Address [address] [place] [address] Phone Care Team Providers Care Costing Manager Name Role Phone Katy Fallon Primary Care Provider + Allergies No known active allergies Medications FREESTYLE LANCETS MISC Use bid and prn Dx:E11.22 09/01/19 19 Active blood-glucose meter kit Dx: E11.22 09/01/19 19 Active baclofen (LIORESAL) 10 mg tablet Take 1 tablet (10 mg total) by mouth 3 (three) times a day. 270 tablet 1 04/28/20 24 Active atorvastatin (LIPITOR) 10 mg tablet TAKE 1 TABLET BY MOUTH EVERY DAY IN THE EVENING 90 tablet 3 06/09/19 25 Active metFORMIN (GLUCOPHAGE) 1,000 mg tablet Take 1 tablet (1,000 mg total) by mouth 2 (two) times a day with meals. 180 tablet 3 06/23/19 25 Active gabapentin (NEURONTIN) 300 mg capsule Take 1 capsule (300 mg total) by mouth 4 (four) times a day. 120 capsule 3 07/08/19 25 Active Trulicity 1.5 mg/0.5 mL pen injector injectionIndic ations:Type 2 diabetes mellitus with stage 3a chronic kidney disease, without long-term current use of insulin (CMS/HCC V24, CMS/HCC V28) Inject 0.5 mL (1.5 mg total) under the skin 1 (one) time per week. 6 mL 1 07/16/19 25 025 Active levothyroxine (SYNTHROID, LEVOTHROID) 125 mcg tablet Take 1 tablet (125 mcg total) by mouth 1 (one) time each day before breakfast. 6 days/week, skip the seventh day. 90 each 3 08/05/19 25 Active cyanocobalamin (VITAMIN B-12) 1,000 mcg tablet Take 1 tablet (1,000 mcg total) by mouth 1 (one) time each day. 90 tablet 3 11/10/19 25 Active cholecalcifero l (VITAMIN D-3) 50 mcg (2,000 unit) capsule Take 1 capsule (2,000 Units total) by mouth 1 (one) time each day in the morning. 90 each 11/10/19 25 Active magnesium 250 mg tablet Take 250 mg by mouth 2 (two) times a day. 180 tablet 3 11/10/19 25 Active docusate sodium (COLACE) 100 mg capsule Take 1 capsule (100 mg total) by mouth 1 (one) time each day. 90 each 11/10/19 25 Active senna-docusate (PERICOLACE) 8.6-50 mg per tablet Take 1 tablet by mouth 1 (one) time each day. 90 tablet 3 11/10/19 25 Active blood sugar diagnostic (FreeStyle Lite Strips) test strip USE TO CHECK BLOOD GLUCOSE 4 TIMES PER DAY 200 strip 11/10/19 25 Active lisinopriL (PRINIVIL,ZEST RIL) 5 mg tablet Take 1 tablet (5 mg total) by mouth 1 (one) time each day. 90 tablet 1 11/25/19 25 Active cholecalcifero l (VITAMIN D-3) 50 mcg (2,000 unit) capsule Take 1 Capsule by mouth every morning. 025 Discontinued(Re order) magnesium 250 mg tablet Take 1 mcg by mouth daily. 025 Discontinued(Re order) cyanocobalamin (VITAMIN B-12) 1,000 mcg tablet Take 1 Tablet by mouth daily. 02/27/20 18 025 Discontinued(Re order) lisinopriL (PRINIVIL,ZEST RIL) 5 mg tablet Take 1 tablet (5 mg total) by mouth 1 (one) time each day. 90 tablet 1 06/09/19 25 025 Discontinued(Re order) docusate sodium (COLACE) 100 mg capsule Take 1 capsule (100 mg total) by mouth 1 (one) time each day. 025 Discontinued(Re order) senna-docusate (PERICOLACE) 8.6-50 mg per tablet Take 1 tablet by mouth 1 (one) time each day. 025 Discontinued(Re order) lisinopriL (PRINIVIL,ZEST RIL) 5 mg tablet Take 1 tablet (5 mg total) by mouth 1 (one) time each day. 90 tablet 1 11/10/19 25 025 Discontinued(Re order) glucose blood test strip Use to check blood glucose 4 times per day 200 each 11/10/19 025 Discontinued Active Problems Problem Noted Date Diagnosed Date Nocturia 04/14/2024 Nocturnal leg cramps 04/14/2024 Prostate cancer ([facility] V24, [facility] V28) 02/04 BPH (benign prostatic hyperplasia) 02/25/2019 Hypomagnesemia 05/07/2018 Left shoulder pain 05/06/2018 Decreased hearing, bilateral 02/26/2018 Vitamin D deficiency 02/26/2018 Obesity 01/15/2018 Anxiety 08/29/2017 Diabetic neuropathy ([facility] V24, [facility] V28) 1 07/18/2016 CKD (chronic kidney disease) stage 3, GFR 30-59 ml/min ([facility] V24, [facility] V28) 05/17/2017 DM (diabetes mellitus), type 2 with renal complications ([facility] V24, [facility] V28) 05/17/2017 Hyperlipidemia 05/17/2017 Hypertension 05/17/2017 Hypothyroidism 05/17/2017 AAA (abdominal aortic aneurysm) ([facility] V24) Tubular adenoma of colon 05/17/2017 Onychomycosis 05/05/2017 Sciatica 11/17/2012 Encounters Date Type Department Care Team Description 09/02/2024 Telephone Internal Medicine [address] [phone] Katy Fallon PA 08/31/2024 3:15 PM EDT Office Visit Internal Medicine [address] [phone] Katy Fallon, MARKUS Type 2 diabetes mellitus with stage 3a chronic kidney disease, without long-term current use of insulin ([facility] V24, [facility] V28) (Primary Dx); Primary hypertension; Pure hypercholesterolemia; Hypothyroidism, unspecified type; Hypomagnesemia from Last 3 Months Immunizations Name Administration [...] History Surgery Date Site/Laterality Comments VASECTOMY PROCEDURE: IL VASECTOMY UNI/BI SPX W/POSTOP SEMEN EXAMS TONSILLECTOMY PROCEDURE: HISTORICAL TONSILLECTOMY COLONOSCOPY 03/21/2016 PROCEDURE: HISTORICAL COLONOSCOPY; COMMENT: polyp = tubular adenoma - repeat 3 years - Dr. Farah Medical History Medical History Date Comments Onychomycosis 05/05/2017 DX:Onychomycosis Diabetic neuropathy ([facility] V24, [facility] V28) 05/17/2017 DX:Diabetic neuropathy (HCC) CKD (chronic kidney disease) stage 3, GFR 30-59 ml/min ([facility] V24, [facility] V28) 05/17/2017 DX:CKD (chronic kidney disea se) stage 3, GFR 30-59 ml/min ([facility]) DM (diabetes mellitus), type 2 with renal complications ([facility] V24, [facility] V28) 05/17/2017 DX:DM (diabetes mellitus), t ype 2 with renal complications ([facility]) Hypertension 05/17/2017 DX:Hypertension Hyperlipidemia 05/17/2017 DX:Hyperlipidemi a AAA (abdominal aortic aneury sm) ([facility] V24) 05/17/2017 DX:AAA (abdominal aortic ane urysm) ([facility]) Hypothyroidism 05/17/2017 DX:Hypothyroidis m Obesity 01/15/2018 DX:Obesity Sciatica 11/17/2012 DX:Sciatica Decreased hearing, bilateral 02/26/2018 DX: Decreased hearing, bilateral Anxiety 08/29/2017 DX:Anxiety Nocturnal leg cramps DX:Nocturna l leg cramps Nocturia DX:Nocturia Tubular adenoma of colon 05/17/2017 DX:Tubu lar adenoma of colon Prostate cancer ([facility] V24 , [facility] V28) 02/04/2023 DX:Prostate cancer ([facility]) Family History Medical History Relation Name [...] for your loved ones. For example, child custody evaluator or elderly care for an older adult? [...] Sign Reading Time Taken Comments Blood Pressure 158/90 08/31/2024 3:19 PM EDT Pulse 83 08/31/2024 3:19 PM EDT Temperature 36.2 C (97.1 F) 08/31/2024 3:19 PM EDT Respiratory Rate - - Oxygen Saturation 97% 08/31/2024 3:19 PM EDT Inhaled Oxygen Concentration - - Weight 98.9 kg (218 lb) 08/31/2024 3:19 PM EDT Height 177.8 cm (5' 10 ) 08/31/2024 3:19 PM EDT Body Mass Index 31.28 08/31/2024 3:19 PM EDT Plan of Treatment Upcoming Encounters Date Type Department Care Team (Late st Contact Info) Description 12/09/2024 3:15 PM EDT Office Visit Internal Medicine - [place] [address] [place] [address] Katy Fallon PA [address] [place] [address] 01/18/2025 10:45 AM EDT Office Visit Nephrology - [facility] [address] [facility] [place] [address] Ed Buckner MD [address] [place] [address] Health Maintenance Due Date Last Done Comments Diabetes: Annual Retina Eye Exam 1960 Hepatitis C Screening 05/04/2022 Medicare Annual Wellness Visit 05/04/2022 RSV Immunization Adult Patients (1 - 1-dose 75+ series) 2023 COVID-19 Vaccine (8 - Pfizer risk 2023- season) 2024 03/12/2024, 02/15/2023, 02/05/2022, Additional history exists Diabetes: Annual Foot Exam 12/24/2024 12/25/2023 Influenza Vaccine (#1) 2025 , 02/15/2023, 02/05/2022, Additional history exists Diabetes: Blood Sugar Control Test (HGBA1C) 03/02/2025 08/31/2024, 05/13/2024, 10/17/2023, Additional history exists Diabetes: Annual Urine Albumin-Creatinine Ratio (uACR) 05/13/2025 05/13/2024, 01/22/2023 Diabetes: Annual GFR (Glomerular Filtration Rate) 05/13/2025 05/13/2024, 10/17/2023, 10/17/2023, Additional history exists Hypertension/CHF/CAD Annual BMP Blood Test 05/13/2025 05/13/2024, 10/17/2023, 10/17/2023, Additional history exists Social Influencers of Health Screening 05/21/2025 05/21/2024 Colorectal Cancer Screening: Colonoscopy 06/13/2025 06/13/2020 Depression Screening 08/24/2025 08/24/2024 Falls Risk Assessment 08/31/2025 08/31/2024 Cholesterol Screening (Lipid Panel) 05/13/2029 05/13/2024, 10/17/2023, 10/17/2023, Additional history exists DTaP,Tdap,and Td Vaccines (3 - Td or Tdap) 07/04/2031 07/04/2021, 01/22/2007 Zoster Vaccines Completed 08/24/2019, 01/2020, 12/22/2018 Pneumococcal Vaccine: 50+ Years Completed 03/08/2022, 08/06/2019, 07/18/2005 HIB Vaccines Aged Out No longer eligi [...] age to complete this topic Meningococcal B Vaccine Aged Out No l onger eligible based on patient's age to complete this topic RSV Immunization Patients Under 20 months Aged Out No longer eligible based on patient's age to complete this topic Varicella Vaccines Aged Out No longer eligible based on patient's age to complete this topic Procedures Procedure Name Priority Date/Time Associated Diagnosis Comments HEMOGLOBIN A1C Routine 08/31/2024 4:22 PM EDT Type 2 diabetes mellitus with stage 3a chronic kidney disease, without long-term current use of insulin ([facility] V24, [facility] V28) MAGNESIUM Routine 08/31/2024 4:22 PM EDT Hypomagnesemia MICROALBUMIN CREATININE URINE RATIO Routine 05/13/2024 10:43 AM EST Type 2 diabetes mellitus with ESRD (end-stage renal disease) ([facility] V24, [facility] V28) Pure hypercholesterolem ia Chronic kidney disease, stage III (moderate) (CMS/HCC V24, CMS/HCC V28) Essential hypertension, malignant COMPREHENSIVE METABOLIC PANEL Routine 05/13/2024 10:35 AM EST Type 2 diabetes mellitus with ESRD (end-stage renal disease) (CMS/HCC V24, CMS/HCC V28) Pure hypercholesterolem ia Chronic kidney disease, stage III (moderate) (CMS/HCC V24, CMS/HCC V28) Essential hypertension, malignant LIPID PANEL WITH REFLEX TO DIRECT LDL Routine 05/13/2024 10:35 AM EST Type 2 diabetes mellitus with ESRD (end-stage renal disease) (CMS/HCC V24, CMS/HCC V28) Pure hypercholesterolem ia Chronic kidney disease, stage III (moderate) (CMS/HCC V24, CMS/HCC V28) Essential hypertension, malignant DIABETES FOOT EXAM Routine 12/25/2023 COLONOSCOPY Routine 06/13/2020 from Last 3 Months or Most Recently Relevant to Health Maintenance Results * Magnesium (08/31/2024 4:22 PM EDT) [facility] Magnesium 1.9 1.9 - 2.6 mg/dL LAB CHEMISTRY METHOD 08/31/2024 7:05 PM EDT [facility] Blood Venous blood specimen / Unknown Venipuncture / Unknown 08/31/2024 4:22 PM EDT 08/31/2024 4:22 PM EDT us Katy APARICIO LAB BLOOD ORDERABLES Fin al Result [facility] [address] [place] [address], * Hemoglobin A1c (08/31/2024 4:22 PM EDT) Pathologist [facility] Hemoglobin A1C 6.4 <6.5 % LAB CHEMISTRY METHOD 08/31/2024 9:24 PM EDT [facility] Mean Bld Glu Estim. 137 mg/dL LAB CHEMISTRY METHOD 08/31/2024 9:24 PM EDT [facility] Blood Venous blood specimen / Unknown Venipuncture / Unknown 08/31/2024 4:22 PM EDT 08/31/2024 4:22 PM EDT Katy APARICIO LAB BLOOD ORDERABLES Fin al Result [facility] [address] [place] [address], [place] [phone] * Microalbumin creatinine urine ratio (05/13/2024 10:43 AM EST) Creatinine, Urine 160.0 mg/dL LAB CHEMISTRY METHOD 05/13/2024 3:58 PM EST [facility] Microalb, Ur 14.0 0.0 - 29.0 mg/L LAB CHEMISTRY METHOD 05/13/2024 3:58 PM EST [facility] Microalb/Creat Ratio 9 <30 mg/g creat LAB CHEMISTRY METHOD 05/13/2024 3:58 PM EST [facility] Urine Urine specimen obtained by clean catch procedure / Unknown Non-blood Collection / Unknown 05/13/2024 10:43 AM EST 05/13/2024 10:43 AM EST Katy APARICIO LAB URINE ORDERABLES Fin al Result [facility] [address] [place] [address], [place] [phone] * Lipid panel with reflex to direct LDL (05/13/2024 10:35 AM EST) Cholesterol 139 0 - 200 mg/dL LAB CHEMISTRY METHOD 05/13/2024 3:33 PM EST [facility] Triglycerides 90 0 - 150 mg/dL LAB CHEMISTRY METHOD 05/13/2024 3:33 PM EST [facility] HDL 61 >=40 mg/dL LAB CHEMISTRY METHOD 05/13/2024 3:[address] [facility] LDL Calculated 60 0 - 100 mg/dL LAB CHEMISTRY METHOD 05/13/2024 3:[address] [facility] VLDL Cholesterol Pablo 18 mg/dL LAB CHEMISTRY METHOD 05/13/2024 3:[address] [facility] Non HDL Chol. (LDL+VLDL) 78 <145 mg/dL LAB CHEMISTRY METHOD 05/13/2024 3:[address] [facility] Chol/HDL Ratio 2.3 0.0 - 4.4 LAB CHEMISTRY METHOD 05/13/2024 3:[address] [facility] Blood Venous blood specimen / Unknown Venipuncture / Unknown 05/13/2024 10:35 AM EST 05/13/2024 10:40 AM EST us Katy APARICIO LAB BLOOD ORDERABLES Fin al Result [facility] [address] [place] [address], * (ABNORMAL) Comprehensive metabolic panel (05/13/2024 10:35 AM EST) Sodium 142 133 - 145 mmol/L LAB CHEMISTRY METHOD 05/13/2024 3:[address] [facility] Potassium 4.3 3.5 - 5.5 mmol/L LAB CHEMISTRY METHOD 05/13/2024 3:[address] [facility] Chloride 108 96 - 110 mmol/L LAB CHEMISTRY METHOD 05/13/2024 3:[address] [facility] CO2 28 21 - 32 mmol/L LAB CHEMISTRY METHOD 05/13/2024 3:[address] [facility] Anion Gap 6 3 - 11 LAB CHEMISTRY METHOD 05/13/2024 3:[address] [facility] Glucose 154(H) 70 - 100 mg/dL LAB CHEMISTRY METHOD 05/13/2024 3:[address] [facility] BUN 22 5 - 25 mg/dL LAB CHEMISTRY METHOD 05/13/2024 3:[address] [facility] Creatinine 1.46(H) 0.70 - 1.30 mg/dL LAB CHEMISTRY METHOD 05/13/2024 3:[address] [facility] eGFR 50(L) >=60 mL/min/1. 73m2 LAB CHEMISTRY METHOD 05/13/2024 3:[address] [facility] Comment:Calculation based on the Chronic Kidney Disease Epidemiology Collaboration (CKD-EPI) equation refit without adjustment for race. BUN/Creatinine Ratio 15.1 LAB CHEMISTRY METHOD 05/13/2024 3:[address] [facility] Calcium 9.5 8.5 - 10.5 mg/dL LAB CHEMISTRY METHOD 05/13/2024 3:[address] [facility] AST (SGOT) 21 10 - 42 unit/L LAB CHEMISTRY METHOD 05/13/2024 3:[address] [facility] ALT (SGPT) 20 10 - 60 unit/L LAB CHEMISTRY METHOD 05/13/2024 3:[address] [facility] Alkaline Phosphatase 78 42 - 121 unit/L LAB CHEMISTRY METHOD 05/13/2024 3:[address] [facility] Total Protein 6.9 6.0 - 8.0 g/dL LAB CHEMISTRY METHOD 05/13/2024 3:[address] [facility] Albumin 4.0 3.2 - 5.0 g/dL LAB CHEMISTRY METHOD 05/13/2024 3:[address] [facility] Total Bilirubin 0.6 0.0 - 1.4 mg/dL LAB CHEMISTRY METHOD 05/13/2024 3:33 PM EST [facility] Blood Venous blood specimen / Unknown Venipuncture / Unknown 05/13/2024 10:35 AM EST 05/13/2024 10:40 AM EST Katy APARICIO LAB BLOOD ORDERABLES Fin al Result [facility] [address] [place] [address], * Diabetes Foot Exam (12/25/2023) Diabetes: Annual Foot Exam abstracted Historical Provider HEALTH MAINTENANCE Final Result * Colonoscopy (06/13/2020) Pathologist [facility] Colonoscopy no interpretation , abstracted Anatomical Region Laterality Modality Other Historical Provider HEALTH MAINTENANCE Final Result from Last 3 Months or Most Recently Relevant to Health Maintenance Insurance [employer] Advance Directives Documents on File Type Date Recorded Patient Media Analyst Expl anation Health Care Decision (hx) 06/13/2023 HE ALTH CARE PROXY Health Care Decision (hx) 06/13/2023 HE ALTH CARE PROXY Health Care Decision (hx) 06/13/2023 HE ALTH CARE PROXY Health Care Decision (hx) 06/13/2023 HE ALTH CARE PROXY Health Care Decision (hx) 06/13/2023 HE ALTH CARE PROXY Health Care Decision (hx) 06/13/2023 HE [facility] C[facility] PROX[facility] Health Care Decision (hx) 06/13/2023 HE [facility] PROXY Care Teams Costing Manager Relationship Specialty Start Date End Date Katy Fallon PA [address] [place] [address] PCP - General Primary Care 02/08/20
[2024-11-29 08:03] VITALS: BP 120/60; PULSE 57; O2SAT 99; BMI 30.7
--- NOTE | 2024-11-29 08:03 | A.OFFVIS_ITS ---
Vital Signs 11/29/24 08:03 Height 5 ft 11 in Weight 220 lb BMI 30.7 BP 120/60 Blood Pressure Location Lt brachial Position Sitting Pulse 57 Pulse Source Pulse Oximeter Pulse Oximetry (%) 99 Oxygen Delivery Method Room Air Intake Visit Reasons: 6 mo follow up Intake Note: Patient presents follow up Gait. Labs/X-ray/MRI in chart Brick Baker Required: No Accompanied by: Self / Same As Patient Allergies No Known Allergies Allergy (Verified 11/29/24 08:08) HPI Comments Details: 74-yr-old male presents for assessment of low back pain and worsening of L > R pain/parasthesias. MRI 09/2024 reviewed with pt. today, multilevel disc space narrowing, suspicious osseous lesions and foraminal stenosis. Pt. is interested in surgical procedure with Dr. Fitzgerald. Labs 06/2024, A1c is elevated, Vitamin D low / normal, B12 elevated. Gait is slow, he uses his walker for distance and cane usually at home. Since , L. lower extremity is more swollen, painful with a tingling sensation radiates down into the feet. He has to drag his foot to initiate a step and feels more unstable when he takes a step, especially on the treadmill. He is still going to the gym to exercise 3-4x per week. Pt reports that he started going to the gym earlier this year, however, stopped going due to increased pain, denies injuries. He has some expected muscle discomfort from working out and he had tweaked his left elbow, so now he had to adjust his workout routine some for this, and his strength has been improving. Though, he feels the lower back pain has improved at this point, he still is very slow and mindful about his movements. He has been using a walker again. PT c/o L. leg pain and numbness, 3 -4x per week he will do the stationary bike for 10min then leg presses and rowing machine. He feels his chronic back spasms are occurring overall less often- possibly due to a recent increase in his Magnesium dose. He recently did decrease his gabapentin from 300 mg q.a.m. to 900 mg q.h.s., as he was hoping to come off of some of his medications. His LLE is always colder / to freezing in the night, in comparison to RLE, he feels exacerbated since his previous accident, and l. leg dragging again.He has trace BLE swelling- this is not new. No new bladder or bowel changes, can now sleep 4-8 hours, still has urge, difficulty starting and leaking of urinary stream every two hours, will f/u with urology, denies incontinence of stools, though he has stool soft. When he sits down on the floor, he is unable to get back up. He states his prostate CA is currently in remission. Will consider pain management after surgery- with Dr. Fitzgerald, will schedule - [facility] Medical History Hypothyroidism HTN (hypertension) (~11/29/24) Cervicalgia Surgical History History of back surgery History of colonoscopy Hx of tonsillectomy H/O: vasectomy Social History Alcohol intake: current Patient Tobacco Use Status: Never used Tobacco Physical Exam Vital Signs: Last Vital Signs Pulse 57 11/29/24 08:03 BP 120/60 11/29/24 08:03 Pulse Ox 99 11/29/24 08:03 Oxygen Delivery Method Room Air 11/29/24 08:03 BMI result Body Mass Index 30.7 Const General: cooperative and no acute distress Orientation/consciousness: patient oriented x3 HEENT Head: Yes normocephalic Resp Effort & Inspection: normal respiratory effort and able to speak in complete sentences Neuro Other: Facial expression okay Blink intact. Stooped, forward shoulder posture. Lower cervical spine vertebral prominence. Left lateral paraspinal palpable tenderness. BLE muscle strength 5/5 RLE muscle strength 4+/5 LLE muscle strength 5-/5 BUE rigidity BUE jim: RUE intact. LUE for fluidity RLE foot taps induced left hand tremor. Otherwise no tremor appreciated. Foot taps- BLE, right more so than left, decreased Patient was very slow to stand today, needing to push up with both hands, stooped posture, he could not initiate a step, without holding onto the examiner's hands, steps very short. With walker, short steps, with low floor clearance, steadier with walker. General: patient oriented x3 and CN's II-XI intact bilaterally Cognition (Neuro): normal cognition Deep tendon reflexes (DTR's): Right triceps reflex intensity grade: 3+, Left triceps reflex intensity grade: 3+, Rt Biceps (C5, C6): 2+, Left biceps reflex intensity grade: 2+, Right brachioradialis reflex intensity grade: 2+, Left brachioradialis reflex intensity grade: 2+, Right patellar reflex intensity grade: 2+ and Left patellar reflex intensity grade: 3+ Psych Appearance: grossly normal Mental Status: mental status grossly normal Speech and movement: Normal speech and movement present Affect: normal affect Attitude: cooperative Thought process: Normal thought process present Thought content: Normal thought content present Insight: Good insight present (Psych) Judgement: Good judgement present (Psych) Assessment & Plan Assessment & Plan (1) Excessive daytime sleepiness: Code(s): G47.19 - Other hypersomnia Category: Medical (2) Gait abnormality: Comment: Marked change in gait Code(s): R26.9 - Unspecified abnormalities of gait and mobility Category: Medical (3) Cervicalgia: Code(s): M54.2 - Cervicalgia Category: Medical (4) Hyperreflexia: Code(s): R29.2 - Abnormal reflex Category: Medical (5) History of cervical fracture: Code(s): Z87.81 - Personal history of (healed) traumatic fracture Category: Medical (6) Bilateral leg paresthesia: Code(s): R20.2 - Paresthesia of skin Category: Medical (7) Peripheral sensory-motor axonal polyneuropathy: Comment: BLE EMG/NCS- BLE mild axonal, sensory-motor peripheral neuropathy. Left L4-S1 innervated muscles c/w mild chronic neuropathic changes of neuropathy. Code(s): G60.8 - Other hereditary and idiopathic neuropathies Category: Medical (8) Prostate cancer: Code(s): C61 - Malignant neoplasm of prostate Category: Medical Plan As patient has had a acute/subacute decompensation in his ability to walk, in setting of worsening BLE L > R paresthesia, weakness, BUE hyporeflexia, LUE hype rreflexia in setting of known history of cervical spine fracture, prostate CA, and peripheral neuropathy: Urgent MRI C-spine , T-spine, and L-spine with and without contrast reviewed with patient today, he is opting to go for a surgical procedure with Dr. Fitzgerald, shared patient decision making. PSG is submitted to r/o MIMI Labs to r/o deficiencies. Increase gabapentin to 300 mg b.i.d. and 600 mg q.h.s.. Continue baclofen 10-20 mg b.i.d. Continue OTC magnesium 500 mg q.h.s. for muscle cramps Continue to use walker. Follow-up after surgical procedure and may call the clinic if you have any que stions. Orders: Orders Ferritin 11/29/24 G47.19 - Other hypersomnia Hemoglobin A1c 11/29/24 G47.19 - Other hypersomnia Lipid Panel with Reflex 11/29/24 G47.19 - Other hypersomnia Vitamin B12 and Folate 11/29/24 G47.19 - Other hypersomnia RT PSG in-lab sleep study 11/29/24 G47.19 - Other hypersomnia Methylmalonic Acid 11/29/24 G47.19 - Other hypersomnia, G47.9 - Sleep disorder, unspecified, R53.83 - Other fatigue IRON PROFILE 11/29/24 G47.19 - Other hypersomnia, G47.9 - Sleep disorder, unspecified, R53.83 - Other fatigue Vitamin D 25-OH Total 11/29/24 G47.19 - Other hypersomnia Complete Blood Count no Diff 11/29/24 G47.19 - Other hypersomnia TSH reflex Free T4 11/29/24 G47.19 - Other hypersomnia Medications: Discontinued celecoxib (Celebrex) Discontinued Reason: Patient Refused 100 mg PO BID 30 days 60 caps 0RF Patient Instructions: Sleep Hygiene provided: set a scheduled bedtime and wake time to help regulate the circadian rhythm and balance the release of pituitary hormones. Sleep in a dark room, temperatures below 68 degrees, and no devices n bed. Limit caffeinated products 6 hours prior to bed, and limit fluids 2-4 hours prior to bed. Gentle night yoga, diffusing essential oils, and playing soft music can be relaxing. Coding Level of Care Code Est Pt Level 4 (94638) Complex EM visit Add On G2211 Diagnoses Excessive daytime sleepiness G47.19 Gait abnormality R26.9 Cervicalgia M54.2 Hyperreflexia R29.2 History of cervical fracture Z87.81 Bilateral leg paresthesia R20.2 Peripheral sensory-motor axonal polyneuropathy G60.8 Prostate cancer C61 Time Spent (min) 35 Comment Surgical eval pending .
== END 2024-11-29 09:08 | disposition home or self-care (01) ==
LOC: HO.HSMS 07:53
PROVIDERS: PCP Physician Assistant; Visit Provider Physician Assistant Medical
DX: G47.19 Other hypersomnia (principal); R26.9 Unspecified abnormalities of gait and mobility; M54.2 Cervicalgia; R29.2 Abnormal reflex; Z87.81 Personal history of (healed) traumatic fracture; R20.2 Paresthesia of skin; G60.8 Other hereditary and idiopathic neuropathies; C61 Malignant neoplasm of prostate
CPT/HCPCS: 99214

== ENCOUNTER 2024-12-31 12:36 | Outpatient (AMB) | payer OTHER, SELFPAY ==
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
--- OUTSIDE RECORDS SUMMARY | 2024-12-31 12:38 | XMS_ITS | Clinical Summary ---
Author Organization [facility] Address [address] [place] [address] Care Team Providers Care Channeler Insole Name Role Phone Redd Smallwood MD PhD Primary Care Provider Social History Tobacco Use Types Packs/Day Years [...] Associated Diagnosis Comments HX OUTSIDE ORDER 11/02/2024 from Last 3 Months Results * OUTSIDE ORDER (11/02/2024) us Scan Neurology HX AMB PROCEDURES Final Result from Last 3 [place] [id number] [employer] Care Teams Channeler Insole Relationship Specialty Start Date End Date Redd Smallwood MD PhD [address] [place] [address] [place] [id number] PCP - General Internal Medicine 09/03/24
--- OUTSIDE RECORDS SUMMARY | 2024-12-31 12:39 | XMS_ITS | Clinical Summary ---
Author Organization [facility] Address [address] [address] Phone Care Team Providers Care Automat Car Attendant Name Role Phone Redd Smallwood MD Primary Care Provider [phone] Medications aspirin (ST JAG) 81 MG EC tablet Take 81 mg by mouth 12/05/2024 Active atorvastatin (LIPITOR) 10 MG tablet Take 10 mg by mouth 1 (one) time each day in the evening 06/09/2024 Active baclofen (LIORESAL) 10 MG tablet Take 10 mg by mouth in the morning and 10 mg at noon and 10 mg in the evening. 04/28/2024 Active Cholecalciferol 50 MCG (2000 UT) capsule Take 2,000 Units by mouth every morning 11/09/2024 Active cyanocobalamin (VITAMIN B-12) 1000 MCG tablet Take 1,000 mcg by mouth in the morning. 11/09/2024 Active Docusate Sodium (DSS) 100 MG capsule Take 100 mg by mouth in the morning. 11/09/2024 Active Trulicity 1.5 MG/0.5ML solution auto-injector Inject 1.5 mg under the skin 07/16/2024 01/13/20 25 Active furosemide (LASIX) 20 MG tablet Take 20 mg by mouth in the morning. 12/16/2024 Active gabapentin (NEURONTIN) 300 MG capsule Take 300 mg by mouth in the morning and 300 mg at noon and 300 mg in the evening and 300 mg before bedtime. 07/08/2024 Active FREESTYLE LITE test strip USE TO CHECK BLOOD GLUCOSE 4 TIMES PER DAY 11/09/2024 Active levothyroxine (SYNTHROID, LEVOTHROID) 125 MCG tablet Take 125 mcg by mouth 08/04/2024 Active lisinopril 5 MG tablet Take 5 mg by mouth in the morning. 11/24/2024 Active MAGNESIUM PO Take 250 mg by mouth in the morning and 250 mg in the evening. 11/09/2024 Active metFORMIN (GLUCOPHAGE) 1000 MG tablet Take 1,000 mg by mouth 06/23/2024 Active metoprolol tartrate 25 MG tablet Take 12.5 mg by mouth 12/05/2024 Active senna-docusate (PERICOLACE) 8.6-50 MG per tablet Take 1 tablet by mouth in the morning. 11/09/2024 Active tadalafil (CIALIS) 20 MG tablet TAKE 1 TABLET ONCE DIRECTED FOR SEXUAL ACTIVITY 11/08/2024 Active tamsulosin (FLOMAX) 0.4 MG 24 hr capsule TAKE 1 EVERY DAY IN THE EVENING 11/08/2024 Active Active Problems Problem Noted Date Diagnosed Date Acute diastolic heart failure 12/16/2024 Edema of foot 12/16/2024 Cramp in lower limb 04/14/2024 Nocturia 04/14/2024 Malignant neoplasm of prostate 02/04/2023 Benign prostatic hyperplasia 02/25/2019 Hypomagnesemia 05/07/2018 Pain of left shoulder region 05/06/2018 Vitamin D deficiency 02/26/2018 Decreased hearing 02/26/2018 Obesity 01/15/2018 Anxiety 08/29/2017 Chronic kidney disease stage 3 05/17/2017 Abdominal aortic aneurysm 05/17/2017 Type 2 diabetes mellitus wit h other diabetic kidney complication 05/17/2017 Tubular adenomatous polyp of colon 05/17/2017 Hypothyroidism 05/17/2017 Hypertension 05/17/2017 Hyperlipidemia 05/17/2017 Onychomycosis 05/05/2017 Sciatica 11/17/2012 Encounters Date Type Department Care Team Description 12/20/2024 2:00 PM EDT Office Visit [facility] [address] [id number] Ed Buckner MD Stage 3 chronic kidney disease, not otherwise specified (HCC) (Primary Dx); Diabetes mellitus, not otherwise specified (HCC); Hypertension from Last 3 Months Family History Medical History Relation Comments Diabetes Mother Relation Status Comments Mother Alive Social History Tobacco Use Types Packs/Day Years Used Date Smoking Tobacco: Never Smokeless Tobacco: Never Tobacco Cessation:Counseling Given: Not Answered Alcohol Use Standard Drinks/Week Comments Not Currently 0 (1 standard drink = 0.6 oz pur e alcohol) Sex and Gender Information Value Date Recorded Sex Assigned at Not on file Legal Sex Male 11:27 AM EDT Gender Identity Not on file Sexual Orientation Not on file Last Filed Vital Signs Vital Sign Reading Time Taken Comments Blood Pressure 110/62 12/20/2024 2:01 PM EDT Pulse 55 12/20/2024 2:01 PM EDT Temperature - - Respiratory Rate - - Oxygen Saturation - - Inhaled Oxygen Concentration - - Weight 98 kg (216 lb) 12/20/2024 2:01 PM EDT Height - - Body Mass Index - - Plan of Treatment Health Maintenance Due Date Last Done Comments Hepatitis B Vaccine (3 of 3 - Hep B Twinrix 3-dose series) 08/25/2007 03/23/2007, 02/23/2007 Diabetes: Ophthalmology Exam 12/20/2024 Diabetes: Pedal Pulse Checked 12/20/2024 Diabetes: Sensory Foot Exam 12/20/2024 Diabetes: Visual Foot Exam 12/20/2024 Influenza Vaccine (#1) 2025 , 02/05/2022, 02/19/2021, Additional history exists Diabetes: Hemoglobin A1C 03/01/2025 11/29/2024 Pneumococcal Vaccine: 50+ Years Completed 03/08/2022, 08/06/2019, 07/18/2005 Insurance [employer] Care Teams Automat Car Attendant Relationship Specialty Start Date End Date Redd Smallwood MD [address] [place] [id number] PCP - General Internal Medicine 12/20/24
--- OUTSIDE RECORDS SUMMARY | 2024-12-31 12:39 | XMS_ITS | Patient Health Record ---
Author Organization [facility] Address [address] [facility] [place] [address] Care Team Providers Care Color Specialist Name Role Phone Redd Smallwood Primary Care Provider Jeanette Swan Unavailable [phone] Allergies No Known Allergies Results Component Value Reference Range Notes HEMOGLOBIN A1C (GLYCOHEMOGLO BIN) Reviewed date:11/18/2024 02:25:00 PM Interpretation: Performing Lab: Notes/Report: HEMOGLOBIN A1C % (HH) 6.6 Reason For Referral Diagnosis 1 Other hammer toe(s) (acquired), right foot (M20.41) Diagnosis 2 Other hammer toe(s) (acquired), left foot (M20.42) Diagnosis 3 Type 2 diabetes jaja itus with polyneuropathy (E11.42) Diagnosis 4 Raynaud's disease wi thout gangrene (I73.00) Diagnosis 5 Tinea unguium (B35.1 ) Diagnosis 6 Xerosis of skin (L85 .3) Referring Provider First Name Redd Referring Provider Last Name Cl Referred [facility] Ezequiel Referred Provider Jeanette Dos Santos Referred Address [address] [facility] [place],[address], Referred Provider Specialty Podiatry Referral Priority Routine Medications Medication SIG (Take, Route, Frequency, Duration) Notes Start Date End Date Status Baclofen 10 MG as directed Orally Twice a day Active Gabapentin 300 MG 1 capsule Orally thr ee times daily Active Vitamin B 12 Active oxyCODONE HCl 5 MG 1 tablet as needed Orally every 6 hrs Not-Taking Vitamin D3 Active Tylenol Not-Taking Lisinopril 5 MG 1 tablet Orally Once a day Active Trulicity 1.5 MG/0.5ML as directed Subcutaneous Active metFORMIN HCl 1000 MG 1 tablet with a me al Orally twice daily Active MiraLax Active Flomax Active Atorvastatin Calcium 10 MG 1 tablet Orally Once a day Active Docusate Sodium 100 MG 1 capsule as need ed Orally Once a day Active traZODone HCl 50 MG as directed Orally O nce a day Not-Taking Magnesium Citrate Ac tive Hyaluronic Acid Not- Taking Levothyroxine Sodium 125 MCG 1 tablet in the morning on an empty stomach Orally Once a day Active Immunizations Vaccine Route Administration Date Status Comme nts Influenza Unknown 03/06/2023 Administered Influenza Unknown 03/24/2024 Administered COVID-19 Pfizer BioNTech Vaccine Unknown 02/08/2022 Administered 4th 08/23/2021 3rd 02/19/2021 2nd 08/02/2020 1st 07/12/2020 Social History Tobacco Use: Social History Observation Description Date Details (start date - stop date) Never Smoker NA - NA Tobacco use other than smoking: Question Answer Notes Are you an other tobacco user? No Tobacco Control (Standard) Question Answer Notes Tobacco use: Nonsmoker Additional Findings: Tobacco non-user Current no nsmoker AUDIT-C (Standard) Question Answer Notes Did you have a drink contain ing alcohol in the past year? Yes How often did you have a dri nk containing alcohol in the past year? Monthly or less (1 point) How many drinks did you have on a typical day when you were drinking in the past year? 1 or 2 drinks (0 point) How often did you have six o r more drinks on one occasion in the past year? Never (0 point) Points 1 Interpretation Negative Problems Problem Type SNOMED Code ICD Code Onset Dates Problem Status W/U Status Risk Notes Problem Acquired hammer toe of right foot (8005103143676494 ) Other hammer toe(s) (acquired), right foot (M20.41) Active confirmed Problem Acquired hammer toe of left foot (6715139155036515 ) Other hammer toe(s) (acquired), left foot (M20.42) Active confirmed Problem Polyneuropathy due to type 2 diabetes mellitus (801247278) 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.42) Active confirmed Problem Raynaud's disease (404926499) Raynaud's disease without gangrene (I73.00) Active confirmed Vital Signs Blood pressure diastolic 70 mm Hg 11/18/2024 Height 5 ft 11 in in 11/18/2024 Blood pressure systolic 120 mm Hg 11/18/2024 Weight 220 lbs 11/18/2024 BMI 30.68 kg/m2 11/18/2024 Encounters Encounter Location Date Provider Diagnosis [address] [address] 04/26/2024 Jeanette Dos Santos Type 2 diabetes mellitus with polyneuropathy E11.42 ; Xerosis of skin L85.3 and Tinea unguium B35.1 [facility] [address] [place] [address] 11/18/2024 Jeanette Dos Santos Xerosis of skin L85. 3 ; Other hammer toe(s) (acquired), right foot M20.41 ; Type 2 diabetes mellitus with polyneuropathy E11.42 ; Tinea unguium B35.1 and Other hammer toe(s) (acquired), left foot M20.[address] [address] 08/17/2024 Jeanette Dos Santos Assessments Encounter Date Diagnosis (ICD Code) Assessment Notes Treatment Notes Treatment Clinical Notes Section Notes 04/26/2024 Xerosis of skin (ICD-10 - L85.3) 04/26/2024 Type 2 diabetes mellitus with polyneuropathy (ICD-10 - E11.42) 11/18/2024 Other hammer toe(s) (acquired), right foot (ICD-10 - M20.41) 11/18/2024 Xerosis of skin (ICD-10 - L85.3) 11/18/2024 Type 2 diabetes mellitus with polyneuropathy (ICD-10 - E11.42) 04/26/2024 Tinea unguium (ICD-10 - B35.1) 11/18/2024 Tinea unguium (ICD-10 - B35.1) 11/18/2024 Other hammer toe(s) (acquired), left foot (ICD-10 - M20.42) Plan Of Treatment Next Appt Details Provider Name:Jeanette bill, 03/21/2025 10:00:00 AM, [address] [place], [address], Insurance Providers Payer Name Payer Address Payer Phone Subscriber Number Group Number Insured Name Patient Relationship to Insured Coverage Start Date Coverage End Date [employer] Preferred [address] [place] [phone] [id number] Merlin Samaniego Self - patient is the insured Medical (General) History Medical History History ICD Code Back,Hip,and Knee pain Broken bones CAD (Cholesterol) type II diabetes Measles Chicken pox Joint implants/screws Numbness thyroid Prostate cancer Cataracts Surgical History Surgery Date(Month/Year) neck surgery,back,ribs 06/2021
--- OUTSIDE RECORDS SUMMARY | 2025-02-06 20:00 | XMS_ITS | Clinical Summary ---
Author Organization Unknown Care Team Providers Care Loan Representative Name Role Phone JAG LEUNG, DANNIE Unavailable Unavailable SENIA PEREZ, PORSCHE Unavailable Unavailable LILY FRASER LPN Unavailable Unavailable Payers Payer Name Policy Type Policy Number Effective Date Expira tion Date [id number] Problems Condition Name Condition Details Condition Category Status Onset Date Resolution Date Last Treatment Date Treating Clinician Comments HYP HRT AND CHR KDNY DIS W HRT FAIL AND STG 1-4/UNSP CHR KDNY Active 12-05 00:00: 00 ACUTE DIASTOLIC (CONGESTIVE) HEART FAILURE Active 12-05 00:00: 00 TYPE 2 DIABETES MELLITUS W DIABETIC CHRONIC KIDNEY DISEASE Active 12-05 00:00: 00 CHRONIC KIDNEY DISEASE, STAGE 3 UNSPECIFIED Active 12-05 00:00: 00 ANEMIA IN CHRONIC KIDNEY DISEASE Active 12-05 00:00: 00 TYPE 2 DIABETES W DIABETIC PERIPHERAL ANGIOPATH W/O GANGRENE Active 12-05 00:00: 00 SPINAL STENOSIS, LUMBAR REGION WITHOUT NEUROGENIC GUANAKO Active 12-05 00:00: 00 Obesity, class 1 Active 12-05 00:00: 00 LNG TRM (CRNT) USE INJECTABLE NON-INSULIN ANTIDIABETIC DRUGS Active 12-05 00:00: 00 LONG-TERM (CURRENT) USE OF ORAL HYPOGLYCEMIC DRUGS Active 12-05 00:00: 00 Allergies, Adverse Reactions, Alerts Allergy Name Allergy Type Status Severity Reaction(s) Onset Date Inactive Date Treating Clinician Comments NO KNOWN ALLERGIES Propensity to adverse reactions Active 12-11 07:59: 29 Medications Ordered Medication Name Filled Medication Name Start Date Stop Date Current Medication? Ordering Clinician Indication Dosage Frequency Signature (SIG) Comments Components gabapentin 300 mg capsule 07-07 00:00: 00 08-18 10:17 :29 No [id number] PAIN Per instruc tions 4 TIMES A DAY Per instructio ns 4 TIMES A DAY (route: oral) Med Classific ation: Central Nervous System Agents alprazolam 0.25 mg tablet 07-06 00:00: 00 12-10 00:00 :00 No [id number] ANXIETY Per instruc tions 30 MINS PRIOR TO MRI MAY REPEAT TWICE FOR 1 DAY Per instructio ns 30 MINS PRIOR TO MRI MAY REPEAT TWICE FOR 1 DAY (route: oral) Med Classific ation: Central Nervous System Agents aspirin 81 mg tablet,fletcher yed release 12-10 00:00: 00 Yes [id number] HEART HEALTH 1 tablet DAILY 1 tablet DAILY (route: oral) Med Classific ation: Hematolog ical Agents atorvastati n 10 mg tablet 12-10 00:00: 00 Yes [id number] CHOLESTEROL 1 tablet DAILY 1 tablet DAILY (route: oral) Med Classific ation: Cardiovas cular Therapy Agents baclofen 10 mg tablet 12-10 00:00: 00 Yes [id number] PAIN Per instruc tions DIRECTED Per instructio ns DIRECTED (route: oral) Med Classific ation: Locomotor System furosemide 40 mg tablet 12-10 00:00: 00 Yes [id number] CHF 1 tablet EVERY OTHER DAY 1 tablet EVERY OTHER DAY (route: oral) Med Classific ation: Cardiovas cular Therapy Agents gabapentin 600 mg tablet 12-10 00:00: 00 Yes [id number] NEUROPATHY 1 tablet 2 TIMES DAILY 1 tablet 2 TIMES DAILY (route: oral) Med Classific ation: Central Nervous System Agents levothyroxi ne 125 mcg tablet 12-10 00:00: 00 Yes [id number] THYROIS SUPPLEMENT 1 tablet DAILY 1 tablet DAILY (route: oral) Med Classific ation: Endocrine lisinopril 5 mg tablet 12-10 00:00: 00 Yes [id number] HTN 1 tablet DAILY 1 tablet DAILY (route: oral) Med Classific ation: Cardiovas cular Therapy Agents magnesium 250 mg tablet 12-10 00:00: 00 Yes [id number] SUPPLEMENT 1 tablet DAILY 1 tablet DAILY (route: oral) Med Classific ation: Electroly te Balance-N utritiona l Products metformin 1,000 mg tablet 12-10 00:00: 00 Yes [id number] DM 1 tablet 2 TIMES DAILY 1 tablet 2 TIMES DAILY (route: oral) Med Classific ation: Endocrine metoprolol tartrate 25 mg tablet 12-10 00:00: 00 Yes [id number] HTN 0.5 tablet 2 TIMES DAILY 0.5 tablet 2 TIMES DAILY (route: oral) Med Classific ation: Cardiovas cular Therapy Agents tamsulosin 0.4 mg capsule 12-10 00:00: 00 Yes [id number] BPH 1 capsule DAILY 1 capsule DAILY (route: oral) Med Classific ation: Genitouri nary Therapy Trulicity 1.5 mg/0.5 mL subcutaneou s pen injector 12-10 00:00: 00 Yes [id number] DM 0.5 mL WEEKLY 0.5 mL WEEKLY (route: subcutaneo us) Med Classific ation: Endocrine Vitamin B-12 1,000 mcg tablet 12-10 00:00: 00 Yes [id number] SUPPLEMENT 1 tablet EVERY OTHER DAY 1 tablet EVERY OTHER DAY (route: oral) Med Classific ation: Electroly te Balance-N utritiona l Products Vitamin D3 50 mcg (2,000 unit) capsule 12-11 00:00: 00 Yes [id number] SUPPLEMENT 1 capsule DAILY 1 capsule DAILY (route: oral) Med Classific ation: Electroly te Balance-N utritiona l Products Vital Signs Vital Name Observation Time Observation Value Commen ts Temperature 2024-12-28 07:04:00.000 97.3 [degF] Temperature 2024-12-21 14:38:00.000 97.2 [degF] Temperature 2024-12-15 06:39:00.000 97.3 [degF] Temperature 2024-12-10 13:53:00.000 97.4 [degF] BMI (%) 2024-12-10 13:53:00.000 29 kg/m2 Height 2024-12-10 13:53:00.000 71 [in_us] Pulse 2024-12-28 07:04:00.000 74 /min Pulse 2024-12-21 14:38:00.000 66 /min Pulse 2024-12-15 06:39:00.000 68 /min Pulse 2024-12-10 13:53:00.000 64 /min O2 Saturation (%) 2024-12-28 07:05:00.000 97 % O2 Saturation (%) 2024-12-21 14:38:00.000 98 % O2 Saturation (%) 2024-12-15 06:41:00.000 97 % Respirations 2024-12-28 07:04:00.000 18 /min Respirations 2024-12-21 14:38:00.000 18 /min Respirations 2024-12-15 06:39:00.000 18 /min Respirations 2024-12-10 13:53:00.000 18 /min Weight (lbs) 2024-12-28 07:06:00.000 214 [lb_av] Weight (lbs) 2024-12-21 14:38:00.000 216.6 [lb_av] Weight (lbs) 2024-12-15 06:40:00.000 214 [lb_av] Weight (lbs) 2024-12-10 13:53:00.000 212 [lb_av] Systolic Blood Pressure 2024-12-28 07:04:00.000 118 mm [Hg] Systolic Blood Pressure 2024-12-21 14:38:00.000 122 mm [Hg] Systolic Blood Pressure 2024-12-15 06:39:00.000 120 mm [Hg] Systolic Blood Pressure 2024-12-10 13:53:00.000 124 mm [Hg] Diastolic Blood Pressure 2024-12-28 07:04:00.000 70 mm [Hg] Diastolic Blood Pressure 2024-12-21 14:38:00.000 64 mm [Hg] Diastolic Blood Pressure 2024-12-15 06:39:00.000 68 mm [Hg] Diastolic Blood Pressure 2024-12-10 13:53:00.000 64 mm [Hg] Plan of Treatment Planned Activity Planned Date Details Comments Future Scheduled Test RN TO OBSE RVE, ASSESS, EVALUATE, AND DEVELOP AN INDIVIDUALIZED PLAN OF CARE. AGENCY MAY ACCEPT ORDERS FROM CONSULTING PHYSICIANS RN TO OBSERVE AND ASSESS, SOFTWARE BUILD ENGINEER/ASSEMBLER WIRE GROUP TO OBSERVE FOR RISK FOR FALLS AND INSTRUCT IN FALL PREVENTION, HOME SAFETY, MEDICATION MANAGEMENT, INFECTION PREVENTION, AND NUTRITION MANAGEMENT. RN/SOFTWARE BUILD ENGINEER/ASSEMBLER WIRE GROUP NURSE MAY PERFORM O2 SATURATION LEVEL ON ADMISSION AND PRN FOR RESP STATUS CHANGES FOR RN TO ASSESS/SOFTWARE BUILD ENGINEER TO OBSERVE PATIENT, WITH NOTIFICATION TO THE PHYSICIAN IF SATURATION IS 90% IN THE ABSENCE OF MORE SPECIFIC PARAMETERS FROM THE PHYSICIAN. AGENCY MAY PERFORM A RESUMPTION OF CARE VISIT FOLLOWING ANY HOSPITAL ADMISSION. RN/SOFTWARE BUILD ENGINEER/ASSEMBLER WIRE GROUP TO MONITOR CO-MORBID CONDITIONS LISTED ON THE PLAN OF CARE AND ANY NEW CONDITIONS THAT PRESENT THEMSELVES DURING THIS EPISODE TO IDENTIFY CHANGES AND INTERVENE TO MINIMIZE COMPLICATIONS. [code = RN TO OBSERVE, ASSESS, EVALUATE, AND DEVELOP AN INDIVIDUALIZED PLAN OF CARE. AGENCY MAY ACCEPT ORDERS FROM CONSULTING PHYSICIANS RN TO OBSERVE AND ASSESS, SOFTWARE BUILD ENGINEER/ASSEMBLER WIRE GROUP TO OBSERVE FOR RISK FOR FALLS AND INSTRUCT IN FALL PREVENTION, HOME SAFETY, MEDICATION MANAGEMENT, INFECTION PREVENTION, AND NUTRITION MANAGEMENT. RN/SOFTWARE BUILD ENGINEER/ASSEMBLER WIRE GROUP NURSE MAY PERFORM O2 SATURATION LEVEL ON ADMISSION AND PRN FOR RESP STATUS CHANGES FOR RN TO ASSESS/SOFTWARE BUILD ENGINEER TO OBSERVE PATIENT, WITH NOTIFICATION TO THE PHYSICIAN IF SATURATION IS 90% IN THE ABSENCE OF MORE SPECIFIC PARAMETERS FROM THE PHYSICIAN. AGENCY MAY PERFORM A RESUMPTION OF CARE VISIT FOLLOWING ANY HOSPITAL ADMISSION. RN/SOFTWARE BUILD ENGINEER/ASSEMBLER WIRE GROUP TO MONITOR CO-MORBID CONDITIONS LISTED ON THE PLAN OF CARE AND ANY NEW CONDITIONS THAT PRESENT THEMSELVES DURING THIS EPISODE TO IDENTIFY CHANGES AND INTERVENE TO MINIMIZE COMPLICATIONS.] Future Scheduled Test RISK FOR H OSPITALIZATION; RN TO ASSESS/TEACH, ASSEMBLER WIRE GROUP/SOFTWARE BUILD ENGINEER TO OBSERVE/TEACH PATIENT/CAREGIVER ON RISK FOR HOSPITALIZATION/EMERGENCY ROOM VISITS, TEACH SIGNS AND SYMPTOMS THAT PUT PATIENT AT RISK, WHEN TO NOTIFY NURSE/PHYSICIAN OF COMPLICATIONS/DECLINE, AND WHEN TO CALL 911. [code = RISK FOR HOSPITALIZATION; RN TO ASSESS/TEACH, ASSEMBLER WIRE GROUP/SOFTWARE BUILD ENGINEER TO OBSERVE/TEACH PATIENT/CAREGIVER ON RISK FOR HOSPITALIZATION/EMERGENCY ROOM VISITS, TEACH SIGNS AND SYMPTOMS THAT PUT PATIENT AT RISK, WHEN TO NOTIFY NURSE/PHYSICIAN OF COMPLICATIONS/DECLINE, AND WHEN TO CALL 911.] Future Scheduled Test MEDICATION MANAGEMENT; RN/SOFTWARE BUILD ENGINEER/ASSEMBLER WIRE GROUP TO REVIEW MEDICATIONS FOR INTERACTIONS, EFFECTIVENESS OF DRUG THERAPY, AND SIGNS/SYMPTOMS OF ADVERSE REACTIONS. MAY INSTRUCT AND REINFORCE MEDICATION TEACHING RELATED TO THE USE OF MEDICATIONS, DOSAGE, FREQUENCY, PURPOSE, SIDE EFFECTS, AND TO REPORT COMPLICATIONS. [code = MEDICATION MANAGEMENT; RN/SOFTWARE BUILD ENGINEER/ASSEMBLER WIRE GROUP TO REVIEW MEDICATIONS FOR INTERACTIONS, EFFECTIVENESS OF DRUG THERAPY, AND SIGNS/SYMPTOMS OF ADVERSE REACTIONS. MAY INSTRUCT AND REINFORCE MEDICATION TEACHING RELATED TO THE USE OF MEDICATIONS, DOSAGE, FREQUENCY, PURPOSE, SIDE EFFECTS, AND TO REPORT COMPLICATIONS.] Future Scheduled Test CARDIOVASC ULAR SYSTEM; RN TO ASSESS/TEACH, SOFTWARE BUILD ENGINEER/ASSEMBLER WIRE GROUP TO OBSERVE/TEACH RELATED TO ALTERED CARDIOVASCULAR STATUS TO MINIMIZE COMPLICATIONS AND REDUCE HOSPITALIZATION. [code = CARDIOVASCULAR SYSTEM; RN TO ASSESS/TEACH, SOFTWARE BUILD ENGINEER/ASSEMBLER WIRE GROUP TO OBSERVE/TEACH RELATED TO ALTERED CARDIOVASCULAR STATUS TO MINIMIZE COMPLICATIONS AND REDUCE HOSPITALIZATION.] Future Scheduled Test HEART FAIL URE; RN TO ASSESS/TEACH, SOFTWARE BUILD ENGINEER/ASSEMBLER WIRE GROUP TO OBSERVE/TEACH CARDIOPULMONARY SYSTEM TO IDENTIFY SIGNS OF DECOMPENSATION AND INTERVENE TO MINIMIZE THE SEVERITY OF FLUID OVERLOAD. OBSERVE PATIENT ABILITY TO MONITOR AND RECORD DAILY WEIGHTS AND VITAL SIGNS, INCLUDING PULSE AND BLOOD PRESSURE; RECORD PATIENT REPORTED WEIGHT, OR WEIGH PATIENT NEEDED. REPORT INCREASED EDEMA OR WEIGHT GAIN OF >2 LBS IN 1 DAY OR >5 LBS IN 1 WEEK OR 5LBS OR MORE OVER TARGET WEIGHT. MAY MEASURE ABDOMINAL GIRTH IF UNABLE TO WEIGH. SCALES AND BP MONITOR TO BE PROVIDED IF NEEDED. [code = HEART FAILURE; RN TO ASSESS/TEACH, SOFTWARE BUILD ENGINEER/ASSEMBLER WIRE GROUP TO OBSERVE/TEACH CARDIOPULMONARY SYSTEM TO IDENTIFY SIGNS OF DECOMPENSATION AND INTERVENE TO MINIMIZE THE SEVERITY OF FLUID OVERLOAD. OBSERVE PATIENT ABILITY TO MONITOR AND RECORD DAILY WEIGHTS AND VITAL SIGNS, INCLUDING PULSE AND BLOOD PRESSURE; RECORD PATIENT REPORTED WEIGHT, OR WEIGH PATIENT NEEDED. REPORT INCREASED EDEMA OR WEIGHT GAIN OF >2 LBS IN 1 DAY OR >5 LBS IN 1 WEEK OR 5LBS OR MORE OVER TARGET WEIGHT. MAY MEASURE ABDOMINAL GIRTH IF UNABLE TO WEIGH. SCALES AND BP MONITOR TO BE PROVIDED IF NEEDED.] Future Scheduled Test PAIN MANAG EMENT; RN TO ASSESS AND TEACH, ASSEMBLER WIRE GROUP/SOFTWARE BUILD ENGINEER TO OBSERVE AND TEACH AND PROVIDE EDUCATION ON PAIN MANAGEMENT TECHNIQUES. [code = PAIN MANAGEMENT; RN TO ASSESS AND TEACH, ASSEMBLER WIRE GROUP/SOFTWARE BUILD ENGINEER TO OBSERVE AND TEACH AND PROVIDE EDUCATION ON PAIN MANAGEMENT TECHNIQUES.] Future Scheduled Test DIABETES M ANAGEMENT; RN TO ASSESS AND TEACH, ASSEMBLER WIRE GROUP/SOFTWARE BUILD ENGINEER TO OBSERVE AND TEACH INSTRUCTIONS OF DIABETIC CARE TO INCLUDE: DIET DIABETIC SKIN CARE, SIGNS AND SYMPTOMS OF HYPO/HYPERGLYCEMIA, PROPER ADMINISTRATION OF DIABETIC MEDICATION. RN/ASSEMBLER WIRE GROUP/SOFTWARE BUILD ENGINEER TO INSTRUCT ON DIABETIC FOOT CARE AND MONITOR FOR SKIN LESIONS ON LOWER EXTREMITIES. BLOOD GLUCOSE TESTING DAILY FREQ. RN TO ASSESS AND TEACH, ASSEMBLER WIRE GROUP/SOFTWARE BUILD ENGINEER TO OBSERVE AND TEACH PATIENT/CAREGIVER ABILITY TO PERFORM AND RECORD BLOOD GLUCOSE TESTING ORDERED AND TO REPORT ABNORMAL FINDINGS TO PHYSICIAN. RN/ASSEMBLER WIRE GROUP/SOFTWARE BUILD ENGINEER MAY PERFORM BLOOD GLUCOSE TEST NEEDED. RN/ASSEMBLER WIRE GROUP/SOFTWARE BUILD ENGINEER TO REPORT TO PHYSICIAN BLOOD GLUCOSE READINGS GREATER THAN 350 OR LESS THAN 70 RN/ASSEMBLER WIRE GROUP/SOFTWARE BUILD ENGINEER TO INSTRUCT PATIENT ON IMPORTANCE OF HGBA1C MONITORING, KIDNEY FUNCTION TEST, EYE AND FOOT EXAMS. [code = DIABETES MANAGEMENT; RN TO ASSESS AND TEACH, ASSEMBLER WIRE GROUP/SOFTWARE BUILD ENGINEER TO OBSERVE AND TEACH INSTRUCTIONS OF DIABETIC CARE TO INCLUDE: DIET DIABETIC SKIN CARE, SIGNS AND SYMPTOMS OF HYPO/HYPERGLYCEMIA, PROPER ADMINISTRATION OF DIABETIC MEDICATION. RN/ASSEMBLER WIRE GROUP/SOFTWARE BUILD ENGINEER TO INSTRUCT ON DIABETIC FOOT CARE AND MONITOR FOR SKIN LESIONS ON LOWER EXTREMITIES. BLOOD GLUCOSE TESTING DAILY FREQ. RN TO ASSESS AND TEACH, ASSEMBLER WIRE GROUP/SOFTWARE BUILD ENGINEER TO OBSERVE AND TEACH PATIENT/CAREGIVER ABILITY TO PERFORM AND RECORD BLOOD GLUCOSE TESTING ORDERED AND TO REPORT ABNORMAL FINDINGS TO PHYSICIAN. RN/ASSEMBLER WIRE GROUP/SOFTWARE BUILD ENGINEER MAY PERFORM BLOOD GLUCOSE TEST NEEDED. RN/ASSEMBLER WIRE GROUP/SOFTWARE BUILD ENGINEER TO REPORT TO PHYSICIAN BLOOD GLUCOSE READINGS GREATER THAN 350 OR LESS THAN 70 RN/ASSEMBLER WIRE GROUP/SOFTWARE BUILD ENGINEER TO INSTRUCT PATIENT ON IMPORTANCE OF HGBA1C MONITORING, KIDNEY FUNCTION TEST, EYE AND FOOT EXAMS.] Future Scheduled Test FALL REDUC TION MANAGEMENT; RN TO ASSESS AND OBSERVE, SOFTWARE BUILD ENGINEER/ASSEMBLER WIRE GROUP TO OBSERVE FALL RISK FACTORS AND EDUCATE PATIENT/CAREGIVER ON STRATEGIES TO MINIMIZE THE RISK OF FALLING. [code = FALL REDUCTION MANAGEMENT; RN TO ASSESS AND OBSERVE, SOFTWARE BUILD ENGINEER/ASSEMBLER WIRE GROUP TO OBSERVE FALL RISK FACTORS AND EDUCATE PATIENT/CAREGIVER ON STRATEGIES TO MINIMIZE THE RISK OF FALLING.] Goal Patient Goal - TO STAY OUT O F HOSPITAL Goal Provider Goal - A PLAN OF CARE WILL BE ESTABLISHED THAT MEETS THE PATIENTS NEEDS. PATIENT WILL DEMONSTRATE OXYGEN SATURATION WITHIN NORMAL LIMITS OR PATIENTS OPTIMAL LEVEL ESTABLISHED BY THE PHYSICIAN THROUGHOUT CARE. CHANGES TO CO-MORBID CONDITIONS AND ANY NEW CONDITIONS WILL BE IDENTIFIED AND REPORTED TO THE PHYSICIAN. Goal Provider Goal - PATIENT/CAREGIVER WILL VERBALIZE UNDERSTANDING OF SIGNS AND SYMPTOMS THAT PUT THE PATIENT AT RISK FOR HOSPITALIZATION /EMERGENCY ROOM VISITS, WHEN TO NOTIFY NURSE/PHYSICIAN OF COMPLICATIONS/DECLINE AND WHEN TO CALL 911. Goal Provider Goal - PATIENT/CAREGIVER TO VERBALIZE, AND CONSISTENTLY DEMONSTRATE EFFECTIVE, SAFE MANAGEMENT OF MEDICATION INCLUDING KNOWLEDGE OF EFFECTIVENESS, POTENTIAL SIDE EFFECTS AND DRUG REACTIONS AND WHEN TO CONTACT THE APPROPRIATE CARE PROVIDER. PATIENT/CAREGIVER WILL BE ABLE TO VERBALIZE UNDERSTANDING OF MEDICATION REGIMEN AND ACCURATELY TAKE MEDICATIONS PRESCRIBED WITHOUT ADVERSE EFFECTS BY 02/07/25 Goal Provider Goal - PATIENT / CAREGIVER WILL VERBALIZE/DEMONSTRATE UNDERSTANDING OF MEASURES TO MANAGE ALTERED CARDIOVASCULAR STATUS BY 02/07/25 Goal Provider Goal - PATIENT / CAREGIVER WILL VERBALIZE/DEMONSTRATE AN ABILITY TO ADHERE TO SELF-MANAGEMENT OF HF TO MINIMIZE COMPLICATIONS AND AVOID HOSPITALIZATION BY END OF EPISODE. Goal Provider Goal - PATIENT / CAREGIVER WILL VERBALIZE / DEMONSTRATE UNDERSTANDING OF PAIN CONTROL MEASURES BY 02/07/25 Goal Provider Goal - PATIENT / CAREGIVER WILL VERBALIZE / DEMONSTRATE AN ABILITY TO ADHERE TO SELF-MANAGEMENT OF DIABETES MANAGEMENT BY 02/07/25 Goal Provider Goal - PATIENT/CAREGIVER WILL VERBALIZE/DEMONSTRATE UNDERSTANDING OF FALL RISK FACTORS AND IMPLEMENT STRATEGIES TO MINIMIZE FALL RISK. PATIENT/CAREGIVER WILL VERBALIZE/DEMONSTRATE AN ABILITY TO ADHERE TO FALL REDUCTION SELF-MANAGEMENT AND LIFE-STYLE CHANGES BY 02/07/25 Encounters Start Date/Time End Date/Time Encounter Type Admission Type Attending [facility] Care Department Encounter ID Discharge Date Discharge Status Discharge Condition Discharge Reason Percent Goals Met 2024-12-10 00:00:00 2025-02-07 00:00:00 Outpatient [facility] [id number] 43.75
== END 2024-12-31 16:21 | disposition home or self-care (01) ==
LOC: HO.HSMS 12:36
PROVIDERS: PCP Physician Assistant; Visit Provider Nurse Practitioner Family
DX: R26.9 Unspecified abnormalities of gait and mobility (principal); M54.2 Cervicalgia; R29.2 Abnormal reflex; Z87.81 Personal history of (healed) traumatic fracture; R20.2 Paresthesia of skin; G60.8 Other hereditary and idiopathic neuropathies
CPT/HCPCS: 98013